=== PATIENT | female | born 1950 | race Caucasian/White ===

== ENCOUNTER → 2016-09-19 | Outpatient (REF) | payer MEDICARE ==
[~2016-09-19] MED LIST: AMLO5TAB2 PO; ASPI325T PO; COUM1TAB17 PO; DIOV160T6 PO
[2016-09-19 16:39] LABS: FOLATE 14.2 NG/ML; VITAMIN B12 LEVEL 961 PG/ML
[2016-09-19 16:50] LABS: ALBUMIN 4.4 GM/DL (3.2-5.2); ALBUMIN/GLOBULIN RATIO 1.16 (1.00-1.93); ALKALINE PHOSPHATASE 145 U/L (45-117); ALT/SGPT 49 U/L (12-78); ANION GAP 11 MEQ/L (8-16); AST/SGOT 51 U/L (15-37); BLOOD UREA NITROGEN 10 MG/DL (7-18); CALCIUM LEVEL 9.2 MG/DL (8.8-10.2); CARBON DIOXIDE LEVEL 26 MEQ/L (21-32); CHLORIDE LEVEL 102 MEQ/L (98-107); CHOLESTEROL LEVEL 181 MG/DL (<200); CREATININE FOR GFR 0.76 MG/DL (0.55-1.02); GLOMERULAR FILTRATION RATE > 60.0 (>45); GLUCOSE, FASTING 100 MG/DL (80-110); POTASSIUM SERUM 4.3 MEQ/L (3.5-5.1); SODIUM LEVEL 139 MEQ/L (136-145); TOTAL PROTEIN 8.2 GM/DL (6.4-8.2); TRIGLYCERIDES LEVEL 76 MG/DL (<150)
[2016-09-19 19:30] LABS: BASO # 0.1 K/mm3 (0.0-0.2); BASO % 0.7 % (0.0-1.0); EOS # 0.1 K/mm3 (0.0-0.50); EOS % 1.7 % (0.0-3.0); LARGE UNSTAINED CELL # 0.2 K/mm3 (0.0-0.4); LARGE UNSTAINED CELL % 2.3 % (0.0-4.0); LYMPH # 2.1 K/mm3 (1.5-4.5); LYMPH % 25.3 % (24.0-44.0); MEAN CORPUSCULAR HEMOGLOBIN 38.3 pg (27.0-33.0); MEAN CORPUSCULAR HGB CONC 32.6 g/dl (32.0-36.5); MEAN CORPUSCULAR VOLUME 117.4 fl (80.0-96.0); MONO # 0.4 K/mm3 (0.0-0.8); MONO % 5.1 % (0.0-5.0); NEUTROPHILS # 5.3 K/mm3 (1.8-7.7); NEUTROPHILS % 64.8 % (36.0-66.0); PLATELET COUNT, AUTOMATED 194 k/mm3 (150-450); RED CELL DISTRIBUTION WIDTH 12.3 % (11.5-14.5); WHITE BLOOD COUNT 8.1 K/mm3 (4.0-10.0)
[2016-09-19 19:40] LABS: ADD MORPHOLOGY? YES
== END ==
LOC: M SFHCCAPE 09:43
PROVIDERS: ATTEND Physician Assistant
DX: E78.5 Hyperlipidemia, unspecified (principal); G62.9 Polyneuropathy, unspecified; Z23 Encounter for immunization
CPT/HCPCS: 36415; 80053; 80061; 82607; 82746; 84443; 85025; 90662; G0008

== ENCOUNTER → 2016-10-30 | Outpatient (REF) | payer MEDICARE ==
[2016-10-30 16:19] LABS: ADD MORPHOLOGY? YES; BASO # 0.1 K/mm3 (0.0-0.2); BASO % 0.8 % (0.0-1.0); EOS # 0.1 K/mm3 (0.0-0.50); EOS % 1.7 % (0.0-3.0); LARGE UNSTAINED CELL # 0.2 K/mm3 (0.0-0.4); LARGE UNSTAINED CELL % 2.2 % (0.0-4.0); LYMPH # 2.6 K/mm3 (1.5-4.5); LYMPH % 30.4 % (24.0-44.0); MEAN CORPUSCULAR HEMOGLOBIN 38.5 pg (27.0-33.0); MEAN CORPUSCULAR HGB CONC 33.3 g/dl (32.0-36.5); MEAN CORPUSCULAR VOLUME 115.7 fl (80.0-96.0); MONO # 0.3 K/mm3 (0.0-0.8); MONO % 3.9 % (0.0-5.0); NEUTROPHILS # 4.9 K/mm3 (1.8-7.7); NEUTROPHILS % 61.1 % (36.0-66.0); PLATELET COUNT, AUTOMATED 219 k/mm3 (150-450); RED CELL DISTRIBUTION WIDTH 12.2 % (11.5-14.5)
[2016-10-30 17:07] LABS: ALBUMIN 4.2 GM/DL (3.2-5.2); ALKALINE PHOSPHATASE 139 U/L (45-117); ALT/SGPT 46 U/L (12-78); ANION GAP 10 MEQ/L (8-16); AST/SGOT 43 U/L (15-37); BILIRUBIN,TOTAL 0.9 MG/DL (0.2-1.0); BLOOD UREA NITROGEN 9 MG/DL (7-18); CARBON DIOXIDE LEVEL 27 MEQ/L (21-32); CHLORIDE LEVEL 103 MEQ/L (98-107); FERRITIN 489 NG/ML (8-252); GLOMERULAR FILTRATION RATE > 60.0 (>45); GLUCOSE, FASTING 99 MG/DL (80-110); PERCENT SATURATION 88.3 % (13.2-37.4); POTASSIUM SERUM 4.5 MEQ/L (3.5-5.1); SODIUM LEVEL 140 MEQ/L (136-145); TOTAL IRON BINDING CAPACITY 256 UG/DL (250-450); TOTAL PROTEIN 7.7 GM/DL (6.4-8.2)
== END ==
LOC: M SFHCCAPE 09:56
PROVIDERS: ATTEND Physician Assistant
DX: R79.89 Other specified abnormal findings of blood chemistry (principal); R94.5 Abnormal results of liver function studies

== ENCOUNTER → 2017-06-03 | Outpatient (REF) | payer MEDICARE ==
[2017-06-03 18:47] LABS: BASO # 0.1 10^3/uL (0.0-0.2); BASO % 0.9 % (0.0-1.0); EOS # 0.1 10^3/uL (0.0-0.50); EOS % 1.3 % (0.0-3.0); IMMATURE GRANULOCYTE % 0.3 % (0-0); LYMPH # 2.9 10^3/uL (1.5-4.5); LYMPH % 30.4 % (24.0-44.0); MEAN CORPUSCULAR HEMOGLOBIN 38.1 pg (27.0-33.0); MEAN CORPUSCULAR HGB CONC 33.7 g/dl (32.0-36.5); MONO # 0.7 10^3/uL (0.0-0.8); MONO % 6.8 % (0.0-5.0); NEUTROPHILS # 5.7 10^3/uL (1.8-7.7); NEUTROPHILS % 60.3 % (36.0-66.0); PLATELET COUNT, AUTOMATED 262 10^3/uL (150-450); RED CELL DISTRIBUTION WIDTH 13.9 % (11.5-14.5); WHITE BLOOD COUNT 9.5 10^3/uL (4.0-10.0)
[2017-06-03 18:48] LABS: ADD MORPHOLOGY? YES; POSITIVE MORPH POS FLAG
[2017-06-03 19:18] LABS: ALBUMIN 4.4 GM/DL (3.2-5.2); ALBUMIN/GLOBULIN RATIO 1.29 (1.00-1.93); ALKALINE PHOSPHATASE 140 U/L (45-117); ALT/SGPT 32 U/L (12-78); ANION GAP 8 MEQ/L (8-16); AST/SGOT 27 U/L (15-37); BILIRUBIN,TOTAL 0.7 MG/DL (0.2-1.0); BLOOD UREA NITROGEN 10 MG/DL (7-18); CALCIUM LEVEL 9.1 MG/DL (8.8-10.2); CARBON DIOXIDE LEVEL 29 MEQ/L (21-32); CHLORIDE LEVEL 102 MEQ/L (98-107); CHOLESTEROL LEVEL 177 MG/DL (<200); CREATININE FOR GFR 0.88 MG/DL (0.55-1.02); FERRITIN 365 NG/ML (8-252); GAMMA GLUTAMYLTRANSPEPTIDASE 74 U/L (5-55); GLOMERULAR FILTRATION RATE > 60.0 (>45); GLUCOSE, FASTING 101 MG/DL (80-110); PERCENT SATURATION 53.5 % (13.2-45.0); POTASSIUM SERUM 4.5 MEQ/L (3.5-5.1); SODIUM LEVEL 139 MEQ/L (136-145); TOTAL IRON BINDING CAPACITY 245 UG/DL (250-450); TOTAL PROTEIN 7.8 GM/DL (6.4-8.2); TRIGLYCERIDES LEVEL 85 MG/DL (<150)
[2017-06-03 20:38] LABS: ANISOCYTOSIS 2+
== END ==
LOC: M SFHCCAPE 09:38
PROVIDERS: ATTEND Physician Assistant
DX: Z00.00 Encounter for general adult medical examination without abnormal findings (principal); R79.89 Other specified abnormal findings of blood chemistry; R94.5 Abnormal results of liver function studies; E78.5 Hyperlipidemia, unspecified; Z11.59 Encounter for screening for other viral diseases; Z23 Encounter for immunization; I10 Essential (primary) hypertension; Z72.0 Tobacco use; Z85.3 Personal history of malignant neoplasm of breast

== ENCOUNTER 2017-09-02 16:31 | Inpatient (IN) | payer MEDICARE ==
[2017-09-02 17:35] LABS: BASO # 0.1 10^3/uL (0.0-0.2); BASO % 0.5 % (0.0-1.0); EOS # 0.1 10^3/uL (0.0-0.50); EOS % 0.4 % (0.0-3.0); HEMATOCRIT 42.1 % (36.0-47.0); HEMOGLOBIN 14.7 g/dl (12.0-16.0); IMMATURE GRANULOCYTE # 0.1 10^3/uL (0-0); IMMATURE GRANULOCYTE % 0.5 % (0-0); LYMPH # 1.9 10^3/uL (1.5-4.5); LYMPH % 15.2 % (24.0-44.0); MEAN CORPUSCULAR HEMOGLOBIN 38.3 pg (27.0-33.0); MEAN CORPUSCULAR HGB CONC 34.9 g/dl (32.0-36.5); MEAN CORPUSCULAR VOLUME 109.6 fl (80.0-96.0); MONO % 7.7 % (0.0-5.0); NEUTROPHILS # 9.6 10^3/uL (1.8-7.7); NEUTROPHILS % 75.7 % (36.0-66.0); PLATELET COUNT, AUTOMATED 236 10^3/uL (150-450); RED BLOOD COUNT 3.84 10^6/uL (4.00-5.40); RED CELL DISTRIBUTION WIDTH 12.7 % (11.5-14.5); WHITE BLOOD COUNT 12.7 10^3/uL (4.0-10.0)
[2017-09-02 17:42] LABS: INR 1.02; PROTHROMBIN TIME 13.5 SECONDS (12.4-14.5)
[2017-09-02 17:43] LABS: PARTIAL THROMBOPLASTIN TIME 26.7 SECONDS (26.8-37.9)
[2017-09-02 18:07] LABS: ANION GAP 9 MEQ/L (8-16); BLOOD UREA NITROGEN 18 MG/DL (7-18); CALCIUM LEVEL 9.4 MG/DL (8.8-10.2); CARBON DIOXIDE LEVEL 27 MEQ/L (21-32); CHLORIDE LEVEL 104 MEQ/L (98-107); CK-MB VALUE MASS 2.3 NG/ML (0.0-3.6); CPK CREATINE PHOSPHOKINASE 245 U/L (26-192); CREATININE FOR GFR 0.89 MG/DL (0.55-1.02); GLOMERULAR FILTRATION RATE > 60.0 (>45); GLUCOSE, FASTING 108 MG/DL (70-100); MB/CK RELATIVE INDEX 0.93 (< OR =4); POTASSIUM SERUM 4.4 MEQ/L (3.5-5.1); SODIUM LEVEL 140 MEQ/L (136-145); TROPONIN I < 0.02 NG/ML (< 0.10)
[2017-09-02] MEDS: LORazepam 2 MG/ML VIAL (J2060) IV (18:15)
[2017-09-02] MEDS ORDERED: ONDANSETRON 4MG/2ML VIAL (J2405) IV (20:30)
[2017-09-02] MEDS ORDERED: SENOKOT S TAB PO (21:00)
[2017-09-02] MEDS ORDERED: GLUCAGON FOR INJ 1 MG VIAL (J1610) SC (22:00)
[2017-09-02] MEDS ORDERED: GLUCOSE 4 GM CHEW TABLET PO (22:00)
[2017-09-02] MEDS ORDERED: DEXTROSE 50% 50 ML SYRINGE IV (22:00)
[2017-09-02] MEDS: D5W/0.45% SODIUM CHLORIDE 1,000 ML IV (22:33)
[2017-09-02] MEDS: PANTOPRAZOLE 40MG INJ (PROTONIX) (C9113) IV (22:33)
[2017-09-02] MEDS: ATORVASTATIN 20 MG TAB PO (23:22)
[2017-09-02] MEDS: CLOPIDOGREL 75 MG TAB PO (23:22)
[2017-09-02] MEDS: hydrALAZINE INJ 20 MG/ML VIAL IV (23:23)
[2017-09-03] MEDS: hydrALAZINE INJ 20 MG/ML VIAL IV ×3 (07:01→17:49)
[2017-09-03 07:06] LABS: BASO # 0.1 10^3/uL (0.0-0.2); BASO % 0.7 % (0.0-1.0); EOS # 0.1 10^3/uL (0.0-0.50); EOS % 0.8 % (0.0-3.0); HEMATOCRIT 39.1 % (36.0-47.0); HEMOGLOBIN 13.5 g/dl (12.0-16.0); IMMATURE GRANULOCYTE # 0.1 10^3/uL (0-0); IMMATURE GRANULOCYTE % 0.5 % (0-0); LYMPH # 1.4 10^3/uL (1.5-4.5); LYMPH % 14.1 % (24.0-44.0); MEAN CORPUSCULAR HEMOGLOBIN 38.2 pg (27.0-33.0); MEAN CORPUSCULAR HGB CONC 34.5 g/dl (32.0-36.5); MEAN CORPUSCULAR VOLUME 110.8 fl (80.0-96.0); MONO # 0.8 10^3/uL (0.0-0.8); MONO % 8.3 % (0.0-5.0); NEUTROPHILS # 7.3 10^3/uL (1.8-7.7); NEUTROPHILS % 75.6 % (36.0-66.0); PLATELET COUNT, AUTOMATED 206 10^3/uL (150-450); RED BLOOD COUNT 3.53 10^6/uL (4.00-5.40); RED CELL DISTRIBUTION WIDTH 12.8 % (11.5-14.5); WHITE BLOOD COUNT 9.7 10^3/uL (4.0-10.0)
[2017-09-03 07:16] LABS: ANION GAP 7 MEQ/L (8-16); BLOOD UREA NITROGEN 13 MG/DL (7-18); CALCIUM LEVEL 8.8 MG/DL (8.8-10.2); CARBON DIOXIDE LEVEL 27 MEQ/L (21-32); CHLORIDE LEVEL 105 MEQ/L (98-107); CREATININE FOR GFR 0.76 MG/DL (0.55-1.02); GLOMERULAR FILTRATION RATE > 60.0 (>45); GLUCOSE, FASTING 124 MG/DL (70-100); POTASSIUM SERUM 3.8 MEQ/L (3.5-5.1); SODIUM LEVEL 139 MEQ/L (136-145)
[2017-09-03 07:25] LABS: CHOLESTEROL LEVEL 153 MG/DL (<200); CHOLESTEROL RISK RATIO 4.135 (<5); HDL CHOLESTEROL 37 MG/DL (>40); LDL CHOLESTEROL 88.8 MG/DL (<100); NON-HDL-C 116 MG/DL; TRIGLYCERIDES LEVEL 136 MG/DL (<150)
[2017-09-03] MEDS: VALSARTAN 80 MG TAB (DIOVAN) PO ×3 (08:37→22:00)
[2017-09-03] MEDS: CLOPIDOGREL 75 MG TAB PO (08:41)
[2017-09-03] MEDS: ACETAMINOPHEN TAB 650MG DOSE (2X325MG) PO ×2 (08:41→16:25)
[2017-09-03] MEDS: ASPIRIN 81 MG ENTERIC TAB PO (08:41)
[2017-09-03] MEDS: ENOXAPARIN 40 MG/0.4 ML SYRINGE (J1650) SC (08:42)
[2017-09-03] MEDS ORDERED: PROHANCE 279.3MG/ML 5ML VIAL (A9576) As Ordered (11:18)
[2017-09-03] MEDS ORDERED: PROHANCE 279.3MG/ML 15ML VIAL (A9576) As Ordered (11:18)
[2017-09-03] MEDS: LORazepam 2 MG/ML VIAL (J2060) IV (11:32)
[2017-09-03] MEDS: D5W/0.45% SODIUM CHLORIDE 1,000 ML IV (16:26)
[2017-09-03] MEDS: POLYVINYL ALCOHOL OPHTH SOLN 15 ML(LIQUITEARS) OU ×2 (17:00→22:00)
[2017-09-03 20:32] LABS: BEDSIDE GLUCOSE 112 MG/DL (80-115)
[2017-09-03] MEDS: ATORVASTATIN 20 MG TAB PO (22:00)
[2017-09-03] MEDS: PANTOPRAZOLE 40MG INJ (PROTONIX) (C9113) IV (22:00)
[2017-09-03] MEDS: NYSTATIN 100,000 UNITS/GM TOPICAL PWD 15 GM TOP (22:00)
[2017-09-04] MEDS: hydrALAZINE INJ 20 MG/ML VIAL IV ×5 (05:25→23:55)
[2017-09-04 06:49] LABS: BASO # 0.1 10^3/uL (0.0-0.2); BASO % 0.8 % (0.0-1.0); EOS # 0.2 10^3/uL (0.0-0.50); EOS % 1.8 % (0.0-3.0); HEMATOCRIT 38.4 % (36.0-47.0); HEMOGLOBIN 13.1 g/dl (12.0-16.0); IMMATURE GRANULOCYTE % 0.3 % (0-0); LYMPH # 1.7 10^3/uL (1.5-4.5); LYMPH % 16.8 % (24.0-44.0); MEAN CORPUSCULAR HEMOGLOBIN 37.6 pg (27.0-33.0); MEAN CORPUSCULAR HGB CONC 34.1 g/dl (32.0-36.5); MEAN CORPUSCULAR VOLUME 110.3 fl (80.0-96.0); MONO # 0.9 10^3/uL (0.0-0.8); MONO % 9.4 % (0.0-5.0); NEUTROPHILS % 70.9 % (36.0-66.0); PLATELET COUNT, AUTOMATED 207 10^3/uL (150-450); RED BLOOD COUNT 3.48 10^6/uL (4.00-5.40); RED CELL DISTRIBUTION WIDTH 12.7 % (11.5-14.5); WHITE BLOOD COUNT 9.8 10^3/uL (4.0-10.0)
[2017-09-04 07:04] LABS: ANION GAP 5 MEQ/L (8-16); BLOOD UREA NITROGEN 10 MG/DL (7-18); CALCIUM LEVEL 8.7 MG/DL (8.8-10.2); CARBON DIOXIDE LEVEL 26 MEQ/L (21-32); CHLORIDE LEVEL 107 MEQ/L (98-107); CREATININE FOR GFR 0.78 MG/DL (0.55-1.02); GLOMERULAR FILTRATION RATE > 60.0 (>45); GLUCOSE, FASTING 114 MG/DL (70-100); SODIUM LEVEL 138 MEQ/L (136-145)
[2017-09-04] MEDS ORDERED: ISOVUE-370 76% 100ML VIAL (Q9967) As Ordered (07:51)
[2017-09-04] MEDS: VALSARTAN 80 MG TAB (DIOVAN) PO ×3 (09:00→20:37)
[2017-09-04] MEDS: D5W/0.45% SODIUM CHLORIDE 1,000 ML IV (09:15)
[2017-09-04] MEDS: ASPIRIN 81 MG ENTERIC TAB PO (09:16)
[2017-09-04] MEDS: CLOPIDOGREL 75 MG TAB PO (09:16)
[2017-09-04] MEDS: ENOXAPARIN 40 MG/0.4 ML SYRINGE (J1650) SC (09:16)
[2017-09-04] MEDS: POLYVINYL ALCOHOL OPHTH SOLN 15 ML(LIQUITEARS) OU ×4 (09:17→20:36)
[2017-09-04] MEDS: NYSTATIN 100,000 UNITS/GM TOPICAL PWD 15 GM TOP ×2 (09:17→20:36)
[2017-09-04] MEDS: ACETAMINOPHEN TAB 650MG DOSE (2X325MG) PO (13:14)
[2017-09-04 18:41] LABS: BEDSIDE GLUCOSE 113 MG/DL (80-115)
[2017-09-04] MEDS: PANTOPRAZOLE 40MG INJ (PROTONIX) (C9113) IV (20:36)
[2017-09-05] MEDS: ACETAMINOPHEN TAB 650MG DOSE (2X325MG) PO ×2 (00:43→09:25)
[2017-09-05] MEDS: hydrALAZINE INJ 20 MG/ML VIAL IV ×4 (05:55→20:29)
[2017-09-05 06:10] LABS: BASO # 0.1 10^3/uL (0.0-0.2); BASO % 0.5 % (0.0-1.0); EOS # 0.1 10^3/uL (0.0-0.50); EOS % 1.3 % (0.0-3.0); HEMATOCRIT 37.5 % (36.0-47.0); HEMOGLOBIN 12.9 g/dl (12.0-16.0); IMMATURE GRANULOCYTE % 0.4 % (0-0); LYMPH # 1.6 10^3/uL (1.5-4.5); LYMPH % 16.4 % (24.0-44.0); MEAN CORPUSCULAR HEMOGLOBIN 38.6 pg (27.0-33.0); MEAN CORPUSCULAR HGB CONC 34.4 g/dl (32.0-36.5); MEAN CORPUSCULAR VOLUME 112.3 fl (80.0-96.0); MONO # 0.9 10^3/uL (0.0-0.8); MONO % 9.2 % (0.0-5.0); NEUTROPHILS % 72.2 % (36.0-66.0); PLATELET COUNT, AUTOMATED 193 10^3/uL (150-450); RED BLOOD COUNT 3.34 10^6/uL (4.00-5.40); RED CELL DISTRIBUTION WIDTH 12.6 % (11.5-14.5); WHITE BLOOD COUNT 9.7 10^3/uL (4.0-10.0)
[2017-09-05 06:23] LABS: ANION GAP 5 MEQ/L (8-16); BLOOD UREA NITROGEN 11 MG/DL (7-18); CALCIUM LEVEL 8.5 MG/DL (8.8-10.2); CARBON DIOXIDE LEVEL 26 MEQ/L (21-32); CHLORIDE LEVEL 108 MEQ/L (98-107); CREATININE FOR GFR 0.81 MG/DL (0.55-1.02); GLOMERULAR FILTRATION RATE > 60.0 (>45); GLUCOSE, FASTING 117 MG/DL (70-100); SODIUM LEVEL 139 MEQ/L (136-145)
[2017-09-05] MEDS: VALSARTAN 80 MG TAB (DIOVAN) PO ×4 (09:00→21:00)
[2017-09-05] MEDS: ENOXAPARIN 40 MG/0.4 ML SYRINGE (J1650) SC (09:25)
[2017-09-05] MEDS: CLOPIDOGREL 75 MG TAB PO (09:25)
[2017-09-05] MEDS: ASPIRIN 81 MG ENTERIC TAB PO (09:25)
[2017-09-05] MEDS: ATORVASTATIN 10 MG TAB PO (09:25)
[2017-09-05] MEDS: POLYVINYL ALCOHOL OPHTH SOLN 15 ML(LIQUITEARS) OU ×4 (09:26→20:31)
[2017-09-05] MEDS: NYSTATIN 100,000 UNITS/GM TOPICAL PWD 15 GM TOP ×2 (09:26→20:30)
[2017-09-05 10:40] LABS: CPK CREATINE PHOSPHOKINASE 75 U/L (26-192); TROPONIN I < 0.02 NG/ML (< 0.10)
[2017-09-05 10:41] LABS: MB/CK RELATIVE INDEX 1.33 (< OR =4)
[2017-09-05] MEDS: D5W/0.45% SODIUM CHLORIDE 1,000 ML IV ×2 (16:15)
[2017-09-05 17:29] LABS: BEDSIDE GLUCOSE 107 MG/DL (80-115)
[2017-09-05] MEDS: PANTOPRAZOLE 40MG INJ (PROTONIX) (C9113) IV (20:29)
[2017-09-06 04:25] LABS: BASO # 0.1 10^3/uL (0.0-0.2); BASO % 0.8 % (0.0-1.0); EOS # 0.2 10^3/uL (0.0-0.50); EOS % 1.9 % (0.0-3.0); HEMATOCRIT 37.3 % (36.0-47.0); HEMOGLOBIN 12.8 g/dl (12.0-16.0); IMMATURE GRANULOCYTE % 0.2 % (0-0); LYMPH # 1.6 10^3/uL (1.5-4.5); MEAN CORPUSCULAR HEMOGLOBIN 38.1 pg (27.0-33.0); MEAN CORPUSCULAR HGB CONC 34.3 g/dl (32.0-36.5); MONO # 0.9 10^3/uL (0.0-0.8); NEUTROPHILS # 6.5 10^3/uL (1.8-7.7); NEUTROPHILS % 70.1 % (36.0-66.0); PLATELET COUNT, AUTOMATED 204 10^3/uL (150-450); RED BLOOD COUNT 3.36 10^6/uL (4.00-5.40); RED CELL DISTRIBUTION WIDTH 12.2 % (11.5-14.5); WHITE BLOOD COUNT 9.3 10^3/uL (4.0-10.0)
[2017-09-06 04:43] LABS: ANION GAP 5 MEQ/L (8-16); BLOOD UREA NITROGEN 10 MG/DL (7-18); CALCIUM LEVEL 8.5 MG/DL (8.8-10.2); CARBON DIOXIDE LEVEL 27 MEQ/L (21-32); CHLORIDE LEVEL 108 MEQ/L (98-107); CREATININE FOR GFR 0.68 MG/DL (0.55-1.02); GLOMERULAR FILTRATION RATE > 60.0 (>45); GLUCOSE, FASTING 109 MG/DL (70-100); POTASSIUM SERUM 3.9 MEQ/L (3.5-5.1); SODIUM LEVEL 140 MEQ/L (136-145)
[2017-09-06] MEDS: hydrALAZINE INJ 20 MG/ML VIAL IV (05:00)
[2017-09-06] MEDS: D5W/0.45% SODIUM CHLORIDE 1,000 ML IV (08:34)
[2017-09-06] MEDS: CLOPIDOGREL 75 MG TAB PO (08:34)
[2017-09-06] MEDS: ATORVASTATIN 10 MG TAB PO (08:34)
[2017-09-06] MEDS: ACETAMINOPHEN TAB 650MG DOSE (2X325MG) PO ×2 (08:34→17:22)
[2017-09-06] MEDS: ASPIRIN 81 MG ENTERIC TAB PO (08:34)
[2017-09-06] MEDS: VALSARTAN 80 MG TAB (DIOVAN) PO ×3 (08:34→21:01)
[2017-09-06] MEDS: NYSTATIN 100,000 UNITS/GM TOPICAL PWD 15 GM TOP ×2 (08:35→21:01)
[2017-09-06] MEDS: ENOXAPARIN 40 MG/0.4 ML SYRINGE (J1650) SC (08:35)
[2017-09-06] MEDS: BISACODYL 10 MG SUPP PR (08:35)
[2017-09-06] MEDS: POLYVINYL ALCOHOL OPHTH SOLN 15 ML(LIQUITEARS) OU ×4 (08:35→21:02)
[2017-09-06] MEDS: SENNA 8.6 MG TAB (SENOKOT) PO ×2 (10:21→20:53)
[2017-09-06] MEDS ORDERED: SLF 3 ML SYR IV (11:15)
[2017-09-06] MEDS: SLF 3 ML SYR IV ×2 (13:49→21:01)
[2017-09-07 05:40] LABS: BASO # 0.1 10^3/uL (0.0-0.2); BASO % 0.8 % (0.0-1.0); EOS # 0.3 10^3/uL (0.0-0.50); EOS % 2.9 % (0.0-3.0); HEMOGLOBIN 12.8 g/dl (12.0-16.0); IMMATURE GRANULOCYTE % 0.2 % (0-0); LYMPH # 1.4 10^3/uL (1.5-4.5); LYMPH % 16.5 % (24.0-44.0); MEAN CORPUSCULAR HEMOGLOBIN 37.9 pg (27.0-33.0); MEAN CORPUSCULAR HGB CONC 34.6 g/dl (32.0-36.5); MEAN CORPUSCULAR VOLUME 109.5 fl (80.0-96.0); MONO # 0.9 10^3/uL (0.0-0.8); MONO % 10.6 % (0.0-5.0); NEUTROPHILS # 5.9 10^3/uL (1.8-7.7); PLATELET COUNT, AUTOMATED 207 10^3/uL (150-450); RED BLOOD COUNT 3.38 10^6/uL (4.00-5.40); RED CELL DISTRIBUTION WIDTH 11.9 % (11.5-14.5); WHITE BLOOD COUNT 8.6 10^3/uL (4.0-10.0)
[2017-09-07] MEDS: SLF 3 ML SYR IV ×3 (06:00→22:03)
[2017-09-07 06:05] LABS: ANION GAP 8 MEQ/L (8-16); BLOOD UREA NITROGEN 11 MG/DL (7-18); CALCIUM LEVEL 8.9 MG/DL (8.8-10.2); CARBON DIOXIDE LEVEL 25 MEQ/L (21-32); CHLORIDE LEVEL 109 MEQ/L (98-107); CREATININE FOR GFR 0.66 MG/DL (0.55-1.02); GLOMERULAR FILTRATION RATE > 60.0 (>45); GLUCOSE, FASTING 96 MG/DL (70-100); SODIUM LEVEL 142 MEQ/L (136-145)
[2017-09-07] MEDS: VALSARTAN 80 MG TAB (DIOVAN) PO (08:05)
[2017-09-07] MEDS: CLOPIDOGREL 75 MG TAB PO (08:05)
[2017-09-07] MEDS: ATORVASTATIN 10 MG TAB PO (08:06)
[2017-09-07] MEDS: ASPIRIN 81 MG ENTERIC TAB PO (08:06)
[2017-09-07] MEDS: SENNA 8.6 MG TAB (SENOKOT) PO ×2 (08:06→22:02)
[2017-09-07] MEDS: ENOXAPARIN 40 MG/0.4 ML SYRINGE (J1650) SC (08:06)
[2017-09-07] MEDS: ACETAMINOPHEN TAB 650MG DOSE (2X325MG) PO ×2 (08:06→22:50)
[2017-09-07] MEDS: POLYVINYL ALCOHOL OPHTH SOLN 15 ML(LIQUITEARS) OU ×4 (08:07→22:02)
[2017-09-07] MEDS: NYSTATIN 100,000 UNITS/GM TOPICAL PWD 15 GM TOP ×2 (08:07→22:03)
[2017-09-08] MEDS: SLF 3 ML SYR IV ×3 (05:38→22:00)
[2017-09-08 06:06] LABS: BASO # 0.1 10^3/uL (0.0-0.2); BASO % 1.2 % (0.0-1.0); EOS # 0.2 10^3/uL (0.0-0.50); EOS % 2.7 % (0.0-3.0); HEMATOCRIT 38.7 % (36.0-47.0); HEMOGLOBIN 13.2 g/dl (12.0-16.0); IMMATURE GRANULOCYTE % 0.3 % (0-0); LYMPH # 1.3 10^3/uL (1.5-4.5); LYMPH % 17.8 % (24.0-44.0); MEAN CORPUSCULAR HEMOGLOBIN 37.8 pg (27.0-33.0); MEAN CORPUSCULAR HGB CONC 34.1 g/dl (32.0-36.5); MEAN CORPUSCULAR VOLUME 110.9 fl (80.0-96.0); MONO # 0.9 10^3/uL (0.0-0.8); MONO % 11.9 % (0.0-5.0); NEUTROPHILS % 66.1 % (36.0-66.0); PLATELET COUNT, AUTOMATED 234 10^3/uL (150-450); RED BLOOD COUNT 3.49 10^6/uL (4.00-5.40); RED CELL DISTRIBUTION WIDTH 12.1 % (11.5-14.5); WHITE BLOOD COUNT 7.5 10^3/uL (4.0-10.0)
[2017-09-08 06:28] LABS: ANION GAP 8 MEQ/L (8-16); BLOOD UREA NITROGEN 19 MG/DL (7-18); CALCIUM LEVEL 9.1 MG/DL (8.8-10.2); CARBON DIOXIDE LEVEL 26 MEQ/L (21-32); CHLORIDE LEVEL 109 MEQ/L (98-107); CREATININE FOR GFR 0.73 MG/DL (0.55-1.02); GLOMERULAR FILTRATION RATE > 60.0 (>45); GLUCOSE, FASTING 96 MG/DL (70-100); SODIUM LEVEL 143 MEQ/L (136-145)
[2017-09-08] MEDS: CLOPIDOGREL 75 MG TAB PO (08:48)
[2017-09-08] MEDS: ATORVASTATIN 10 MG TAB PO (08:49)
[2017-09-08] MEDS: ASPIRIN 81 MG ENTERIC TAB PO (08:49)
[2017-09-08] MEDS: SENNA 8.6 MG TAB (SENOKOT) PO ×2 (08:49→20:24)
[2017-09-08] MEDS: VALSARTAN 80 MG TAB (DIOVAN) PO (08:49)
[2017-09-08] MEDS: NYSTATIN 100,000 UNITS/GM TOPICAL PWD 15 GM TOP ×2 (08:50→20:24)
[2017-09-08] MEDS: POLYVINYL ALCOHOL OPHTH SOLN 15 ML(LIQUITEARS) OU ×4 (08:50→20:24)
[2017-09-08] MEDS: ENOXAPARIN 40 MG/0.4 ML SYRINGE (J1650) SC (10:55)
[2017-09-08] MEDS: ACETAMINOPHEN TAB 650MG DOSE (2X325MG) PO (19:59)
[2017-09-09] MEDS ORDERED: ONDANSETRON 4 MG ORAL DISINTEGRATING TAB (S0181) PO (05:45)
[2017-09-09] MEDS: SLF 3 ML SYR IV (06:00)
[2017-09-09 06:17] LABS: BASO # 0.1 10^3/uL (0.0-0.2); BASO % 1.3 % (0.0-1.0); EOS # 0.2 10^3/uL (0.0-0.50); EOS % 2.3 % (0.0-3.0); HEMATOCRIT 38.6 % (36.0-47.0); HEMOGLOBIN 13.2 g/dl (12.0-16.0); IMMATURE GRANULOCYTE % 0.3 % (0-0); LYMPH # 1.6 10^3/uL (1.5-4.5); MEAN CORPUSCULAR HEMOGLOBIN 37.4 pg (27.0-33.0); MEAN CORPUSCULAR HGB CONC 34.2 g/dl (32.0-36.5); MEAN CORPUSCULAR VOLUME 109.3 fl (80.0-96.0); MONO # 0.8 10^3/uL (0.0-0.8); MONO % 10.7 % (0.0-5.0); NEUTROPHILS # 4.7 10^3/uL (1.8-7.7); NEUTROPHILS % 63.4 % (36.0-66.0); PLATELET COUNT, AUTOMATED 268 10^3/uL (150-450); RED BLOOD COUNT 3.53 10^6/uL (4.00-5.40); RED CELL DISTRIBUTION WIDTH 11.9 % (11.5-14.5); WHITE BLOOD COUNT 7.4 10^3/uL (4.0-10.0)
[2017-09-09 06:25] LABS: ANION GAP 8 MEQ/L (8-16); BLOOD UREA NITROGEN 21 MG/DL (7-18); CALCIUM LEVEL 9.2 MG/DL (8.8-10.2); CARBON DIOXIDE LEVEL 26 MEQ/L (21-32); CHLORIDE LEVEL 109 MEQ/L (98-107); CREATININE FOR GFR 0.71 MG/DL (0.55-1.30); GLOMERULAR FILTRATION RATE > 60.0 (>45); GLUCOSE, FASTING 97 MG/DL (70-100); POTASSIUM SERUM 3.7 MEQ/L (3.5-5.1); SODIUM LEVEL 143 MEQ/L (136-145)
[2017-09-09] MEDS ORDERED: CHLORTHALIDONE 12.5MG PER 1/2 TABLET PO (09:00)
[2017-09-09] MEDS: CLOPIDOGREL 75 MG TAB PO (09:15)
[2017-09-09] MEDS: ATORVASTATIN 10 MG TAB PO (09:15)
[2017-09-09] MEDS: VALSARTAN 80 MG TAB (DIOVAN) PO (09:15)
[2017-09-09] MEDS: SENNA 8.6 MG TAB (SENOKOT) PO (09:15)
[2017-09-09] MEDS: POLYVINYL ALCOHOL OPHTH SOLN 15 ML(LIQUITEARS) OU ×2 (09:16→12:20)
[2017-09-09] MEDS: ASPIRIN 81 MG ENTERIC TAB PO (09:16)
[2017-09-09] MEDS: NYSTATIN 100,000 UNITS/GM TOPICAL PWD 15 GM TOP (09:16)
[2017-09-09] MEDS: ENOXAPARIN 40 MG/0.4 ML SYRINGE (J1650) SC (09:16)
== END 2017-09-09 14:17 | DRG 64 ==
LOC: M MSPAV 09-06 11:19 → M PCU 09-03 16:50 → M ED 16:31 → M ED INP 20:30
DX: I63.311 Cerebral infarction due to thrombosis of right middle cerebral artery (principal); I63.231 Cerebral infarction due to unspecified occlusion or stenosis of right carotid arteries; I69.354 Hemiplegia and hemiparesis following cerebral infarction affecting left non-dominant side; I10 Essential (primary) hypertension; F17.210 Nicotine dependence, cigarettes, uncomplicated; E78.5 Hyperlipidemia, unspecified; B37.2 Candidiasis of skin and nail; Z85.3 Personal history of malignant neoplasm of breast; Z90.13 Acquired absence of bilateral breasts and nipples; Z96.642 Presence of left artificial hip joint; Z91.040 Latex allergy status; Z91.048 Other nonmedicinal substance allergy status; Z79.82 Long term (current) use of aspirin; Z79.899 Other long term (current) drug therapy; Z92.21 Personal history of antineoplastic chemotherapy

== ENCOUNTER 2017-09-09 14:25 | Inpatient (IN) | payer MEDICARE ==
[~2017-09-09 14:25] MED LIST changes: -AMLO5TAB2 PO; -ASPI325T PO; +BISACODYL 10 MG SUPP PR; -COUM1TAB17 PO; -DIOV160T6 PO; +GLUCAGON FOR INJ 1 MG VIAL (J1610) SC; +GLUCOSE 4 GM CHEW TABLET PO
[2017-09-09] MEDS: ACETAMINOPHEN TAB 650MG DOSE (2X325MG) PO (15:21)
[2017-09-09] MEDS: NYSTATIN 500,000 U/5 ML SUSP UDC SSP ×2 (17:42→20:37)
[2017-09-09] MEDS: VALSARTAN 80 MG TAB (DIOVAN) PO ×2 (17:43→20:38)
[2017-09-09] MEDS: SENNA 8.6 MG TAB (SENOKOT) PO (20:38)
[2017-09-09] MEDS: ATORVASTATIN 10 MG TAB PO (20:38)
[2017-09-09] MEDS: LACRILUBE (AKWA TEARS) OPHTH OINT 3.5 GM OS (21:34)
[2017-09-09] MEDS: NYSTATIN 100,000 UNITS/GM TOPICAL PWD 15 GM TOP (21:35)
[2017-09-10 06:58] LABS: BASO # 0.1 10^3/uL (0.0-0.2); BASO % 1.1 % (0.0-1.0); EOS # 0.2 10^3/uL (0.0-0.50); EOS % 2.5 % (0.0-3.0); HEMATOCRIT 38.6 % (36.0-47.0); HEMOGLOBIN 13.2 g/dl (12.0-16.0); IMMATURE GRANULOCYTE % 0.2 % (0-0); LYMPH % 24.7 % (24.0-44.0); MEAN CORPUSCULAR HEMOGLOBIN 37.4 pg (27.0-33.0); MEAN CORPUSCULAR HGB CONC 34.2 g/dl (32.0-36.5); MEAN CORPUSCULAR VOLUME 109.3 fl (80.0-96.0); MONO # 0.8 10^3/uL (0.0-0.8); NEUTROPHILS # 5.1 10^3/uL (1.8-7.7); NEUTROPHILS % 61.5 % (36.0-66.0); PLATELET COUNT, AUTOMATED 280 10^3/uL (150-450); RED BLOOD COUNT 3.53 10^6/uL (4.00-5.40); RED CELL DISTRIBUTION WIDTH 11.8 % (11.5-14.5); WHITE BLOOD COUNT 8.3 10^3/uL (4.0-10.0)
[2017-09-10 07:18] LABS: ALBUMIN 3.3 GM/DL (3.2-5.2); ALBUMIN/GLOBULIN RATIO 0.77 (1.00-1.93); ALKALINE PHOSPHATASE 118 U/L (45-117); ALT/SGPT 28 U/L (12-78); ANION GAP 7 MEQ/L (8-16); AST/SGOT 27 U/L (7-37); BILIRUBIN,TOTAL 0.5 MG/DL (0.2-1.0); BLOOD UREA NITROGEN 22 MG/DL (7-18); CALCIUM LEVEL 9.3 MG/DL (8.8-10.2); CARBON DIOXIDE LEVEL 28 MEQ/L (21-32); CHLORIDE LEVEL 108 MEQ/L (98-107); CREATININE FOR GFR 0.75 MG/DL (0.55-1.30); GLOMERULAR FILTRATION RATE > 60.0 (>45); GLUCOSE, FASTING 100 MG/DL (70-100); POTASSIUM SERUM 3.9 MEQ/L (3.5-5.1); SODIUM LEVEL 143 MEQ/L (136-145); TOTAL PROTEIN 7.6 GM/DL (6.4-8.2)
[2017-09-10] MEDS: ACETAMINOPHEN TAB 650MG DOSE (2X325MG) PO ×2 (09:17→17:10)
[2017-09-10] MEDS: NYSTATIN 100,000 UNITS/GM TOPICAL PWD 15 GM TOP ×2 (09:18→20:53)
[2017-09-10] MEDS: NYSTATIN 500,000 U/5 ML SUSP UDC SSP ×4 (09:18→20:48)
[2017-09-10] MEDS: ENOXAPARIN 40 MG/0.4 ML SYRINGE (J1650) SC (09:19)
[2017-09-10] MEDS: CLOPIDOGREL 75 MG TAB PO (09:19)
[2017-09-10] MEDS: SENNA 8.6 MG TAB (SENOKOT) PO ×2 (09:19→20:51)
[2017-09-10] MEDS: ASPIRIN 81 MG ENTERIC TAB PO (09:20)
[2017-09-10] MEDS: VALSARTAN 80 MG TAB (DIOVAN) PO ×3 (09:20→20:50)
[2017-09-10] MEDS: ATORVASTATIN 10 MG TAB PO (20:50)
[2017-09-10] MEDS: LACRILUBE (AKWA TEARS) OPHTH OINT 3.5 GM OS (20:53)
[2017-09-11] MEDS: VALSARTAN 80 MG TAB (DIOVAN) PO ×3 (09:43→21:30)
[2017-09-11] MEDS: ASPIRIN 81 MG ENTERIC TAB PO (09:43)
[2017-09-11] MEDS: ENOXAPARIN 40 MG/0.4 ML SYRINGE (J1650) SC (09:43)
[2017-09-11] MEDS: CLOPIDOGREL 75 MG TAB PO (09:44)
[2017-09-11] MEDS: SENNA 8.6 MG TAB (SENOKOT) PO ×2 (09:44→21:00)
[2017-09-11] MEDS: NYSTATIN 500,000 U/5 ML SUSP UDC SSP ×4 (09:44→21:31)
[2017-09-11] MEDS: NYSTATIN 100,000 UNITS/GM TOPICAL PWD 15 GM TOP ×2 (09:45→21:30)
[2017-09-11] MEDS: ACETAMINOPHEN TAB 650MG DOSE (2X325MG) PO (09:50)
[2017-09-11 12:09] LABS: KETONE, URINE AUTO RFX NEGATIVE (NEGATIVE); LEUKOCYTE ESTERASE UR AUTO RFX NEGATIVE (NEGATIVE); MUCUS, URINE RFX SMALL (NEGATIVE); NITRITE, URINE AUTO RFX NEGATIVE (NEGATIVE); RBC, URINE AUTO RFX 0 /HPF (0-3); SPECIFIC GRAVITY UR AUTO RFX 1.027 (1.002-1.035); SQUAM EPITHELIAL CELL UR AURFX 0 /HPF (0-6); WBC, URINE AUTO RFX 2 /HPF (0-3)
[2017-09-11] MEDS: ANALGESIC BALM CRM 120 GM TOP ×3 (12:17→21:32)
[2017-09-11] MEDS: LACRILUBE (AKWA TEARS) OPHTH OINT 3.5 GM OS (21:31)
[2017-09-11] MEDS: ATORVASTATIN 10 MG TAB PO (21:31)
[2017-09-12 07:13] LABS: HEMATOCRIT 39.5 % (36.0-47.0); HEMOGLOBIN 13.5 g/dl (12.0-16.0); MEAN CORPUSCULAR HEMOGLOBIN 37.8 pg (27.0-33.0); MEAN CORPUSCULAR HGB CONC 34.2 g/dl (32.0-36.5); MEAN CORPUSCULAR VOLUME 110.6 fl (80.0-96.0); PLATELET COUNT, AUTOMATED 315 10^3/uL (150-450); RED BLOOD COUNT 3.57 10^6/uL (4.00-5.40); RED CELL DISTRIBUTION WIDTH 11.8 % (11.5-14.5); WHITE BLOOD COUNT 8.7 10^3/uL (4.0-10.0)
[2017-09-12] MEDS: VALSARTAN 80 MG TAB (DIOVAN) PO ×3 (09:32→21:49)
[2017-09-12] MEDS: CLOPIDOGREL 75 MG TAB PO (09:32)
[2017-09-12] MEDS: ASPIRIN 81 MG ENTERIC TAB PO (09:32)
[2017-09-12] MEDS: NYSTATIN 500,000 U/5 ML SUSP UDC SSP ×4 (09:32→21:49)
[2017-09-12] MEDS: ENOXAPARIN 40 MG/0.4 ML SYRINGE (J1650) SC (09:32)
[2017-09-12] MEDS: SENNA 8.6 MG TAB (SENOKOT) PO ×2 (09:32→21:00)
[2017-09-12] MEDS: ANALGESIC BALM CRM 120 GM TOP ×3 (09:33→21:49)
[2017-09-12] MEDS: NYSTATIN 100,000 UNITS/GM TOPICAL PWD 15 GM TOP ×2 (09:33→21:49)
[2017-09-12] MEDS ORDERED: VARIBAR PUDDING 40% w/v 230ML TUBE As Ordered (10:21)
[2017-09-12] MEDS ORDERED: VARIBAR NECTAR 40% w/v 240ML SUSP BTL As Ordered (10:21)
[2017-09-12] MEDS ORDERED: E-Z-PAQUE 96% w/w SUSP 176GM BTL As Ordered (10:22)
[2017-09-12] MEDS: ATORVASTATIN 10 MG TAB PO (21:48)
[2017-09-12] MEDS: LACRILUBE (AKWA TEARS) OPHTH OINT 3.5 GM OS (21:49)
[2017-09-13] MEDS: SENNA 8.6 MG TAB (SENOKOT) PO ×2 (09:21→20:47)
[2017-09-13] MEDS: CLOPIDOGREL 75 MG TAB PO (09:21)
[2017-09-13] MEDS: VALSARTAN 80 MG TAB (DIOVAN) PO ×3 (09:21→20:46)
[2017-09-13] MEDS: ASPIRIN 81 MG ENTERIC TAB PO (09:21)
[2017-09-13] MEDS: NYSTATIN 500,000 U/5 ML SUSP UDC SSP ×4 (09:22→20:46)
[2017-09-13] MEDS: ANALGESIC BALM CRM 120 GM TOP ×3 (09:22→20:46)
[2017-09-13] MEDS: ENOXAPARIN 40 MG/0.4 ML SYRINGE (J1650) SC (09:22)
[2017-09-13] MEDS: NYSTATIN 100,000 UNITS/GM TOPICAL PWD 15 GM TOP ×2 (09:23→20:47)
[2017-09-13] MEDS: ACETAMINOPHEN TAB 650MG DOSE (2X325MG) PO (09:24)
[2017-09-13] MEDS: ATORVASTATIN 10 MG TAB PO (20:46)
[2017-09-13] MEDS: LACRILUBE (AKWA TEARS) OPHTH OINT 3.5 GM OS (20:47)
[2017-09-14 07:18] LABS: HEMATOCRIT 39.7 % (36.0-47.0); HEMOGLOBIN 13.5 g/dl (12.0-16.0); MEAN CORPUSCULAR HEMOGLOBIN 37.5 pg (27.0-33.0); MEAN CORPUSCULAR VOLUME 110.3 fl (80.0-96.0); PLATELET COUNT, AUTOMATED 317 10^3/uL (150-450); RED CELL DISTRIBUTION WIDTH 11.9 % (11.5-14.5)
[2017-09-14 07:33] LABS: ANION GAP 8 MEQ/L (8-16); BLOOD UREA NITROGEN 19 MG/DL (7-18); CALCIUM LEVEL 9.2 MG/DL (8.8-10.2); CARBON DIOXIDE LEVEL 26 MEQ/L (21-32); CHLORIDE LEVEL 108 MEQ/L (98-107); CREATININE FOR GFR 0.81 MG/DL (0.55-1.30); GLOMERULAR FILTRATION RATE > 60.0 (>45); GLUCOSE, FASTING 114 MG/DL (70-100); POTASSIUM SERUM 3.8 MEQ/L (3.5-5.1); SODIUM LEVEL 142 MEQ/L (136-145)
[2017-09-14] MEDS: VALSARTAN 80 MG TAB (DIOVAN) PO ×3 (08:57→20:41)
[2017-09-14] MEDS: ASPIRIN 81 MG ENTERIC TAB PO (08:57)
[2017-09-14] MEDS: NYSTATIN 500,000 U/5 ML SUSP UDC SSP ×4 (08:57→20:41)
[2017-09-14] MEDS: CLOPIDOGREL 75 MG TAB PO (08:57)
[2017-09-14] MEDS: SENNA 8.6 MG TAB (SENOKOT) PO ×2 (08:57→20:39)
[2017-09-14] MEDS: ACETAMINOPHEN TAB 650MG DOSE (2X325MG) PO (08:58)
[2017-09-14] MEDS: ANALGESIC BALM CRM 120 GM TOP ×3 (08:58→20:42)
[2017-09-14] MEDS: NYSTATIN 100,000 UNITS/GM TOPICAL PWD 15 GM TOP ×2 (09:00→20:42)
[2017-09-14] MEDS: ENOXAPARIN 40 MG/0.4 ML SYRINGE (J1650) SC (09:00)
[2017-09-14] MEDS: ATORVASTATIN 10 MG TAB PO (20:41)
[2017-09-14] MEDS: LACRILUBE (AKWA TEARS) OPHTH OINT 3.5 GM OS (20:42)
[2017-09-15] MEDS: ACETAMINOPHEN TAB 650MG DOSE (2X325MG) PO ×3 (06:50→20:39)
[2017-09-15 07:39] LABS: HEMATOCRIT 39.8 % (36.0-47.0); HEMOGLOBIN 13.5 g/dl (12.0-16.0); MEAN CORPUSCULAR HEMOGLOBIN 37.9 pg (27.0-33.0); MEAN CORPUSCULAR HGB CONC 33.9 g/dl (32.0-36.5); MEAN CORPUSCULAR VOLUME 111.8 fl (80.0-96.0); PLATELET COUNT, AUTOMATED 323 10^3/uL (150-450); RED BLOOD COUNT 3.56 10^6/uL (4.00-5.40); RED CELL DISTRIBUTION WIDTH 11.9 % (11.5-14.5); WHITE BLOOD COUNT 8.7 10^3/uL (4.0-10.0)
[2017-09-15] MEDS: ASPIRIN 81 MG ENTERIC TAB PO (09:06)
[2017-09-15] MEDS: VALSARTAN 80 MG TAB (DIOVAN) PO ×3 (09:06→20:11)
[2017-09-15] MEDS: NYSTATIN 500,000 U/5 ML SUSP UDC SSP ×4 (09:06→20:09)
[2017-09-15] MEDS: SENNA 8.6 MG TAB (SENOKOT) PO ×2 (09:06→20:11)
[2017-09-15] MEDS: CLOPIDOGREL 75 MG TAB PO (09:06)
[2017-09-15] MEDS: ANALGESIC BALM CRM 120 GM TOP ×3 (09:07→20:12)
[2017-09-15] MEDS: NYSTATIN 100,000 UNITS/GM TOPICAL PWD 15 GM TOP ×2 (09:07→20:13)
[2017-09-15] MEDS: ENOXAPARIN 40 MG/0.4 ML SYRINGE (J1650) SC (14:04)
[2017-09-15 19:10] LABS: KETONE, URINE AUTO RFX NEGATIVE (NEGATIVE); MUCUS, URINE RFX SMALL (NEGATIVE); NITRITE, URINE AUTO RFX NEGATIVE (NEGATIVE); RBC, URINE AUTO RFX TNTC /HPF (0-3); SPECIFIC GRAVITY UR AUTO RFX 1.027 (1.002-1.035); SQUAM EPITHELIAL CELL UR AURFX 1 /HPF (0-6)
[2017-09-15] MEDS: ATORVASTATIN 10 MG TAB PO (20:11)
[2017-09-15] MEDS: LACRILUBE (AKWA TEARS) OPHTH OINT 3.5 GM OS (20:11)
[2017-09-15 21:10] LABS: LEUKOCYTE ESTERASE UR AUTO RFX 2+ (NEGATIVE); WBC, URINE AUTO RFX TNTC /HPF (0-3)
[2017-09-16 06:49] LABS: HEMATOCRIT 39.9 % (36.0-47.0); HEMOGLOBIN 13.5 g/dl (12.0-16.0); MEAN CORPUSCULAR HEMOGLOBIN 38.1 pg (27.0-33.0); MEAN CORPUSCULAR HGB CONC 33.8 g/dl (32.0-36.5); MEAN CORPUSCULAR VOLUME 112.7 fl (80.0-96.0); PLATELET COUNT, AUTOMATED 309 10^3/uL (150-450); RED BLOOD COUNT 3.54 10^6/uL (4.00-5.40); WHITE BLOOD COUNT 7.5 10^3/uL (4.0-10.0)
[2017-09-16 07:17] LABS: ALBUMIN 3.2 GM/DL (3.2-5.2); ALBUMIN/GLOBULIN RATIO 0.74 (1.00-1.93); ALKALINE PHOSPHATASE 134 U/L (45-117); ALT/SGPT 26 U/L (12-78); ANION GAP 8 MEQ/L (8-16); AST/SGOT 29 U/L (7-37); BILIRUBIN,TOTAL 0.3 MG/DL (0.2-1.0); BLOOD UREA NITROGEN 32 MG/DL (7-18); CALCIUM LEVEL 9.3 MG/DL (8.8-10.2); CARBON DIOXIDE LEVEL 28 MEQ/L (21-32); CHLORIDE LEVEL 108 MEQ/L (98-107); CREATININE FOR GFR 0.99 MG/DL (0.55-1.30); GLOMERULAR FILTRATION RATE 59.2 (>45); GLUCOSE, FASTING 115 MG/DL (70-100); POTASSIUM SERUM 4.1 MEQ/L (3.5-5.1); SODIUM LEVEL 144 MEQ/L (136-145); TOTAL PROTEIN 7.5 GM/DL (6.4-8.2)
[2017-09-16] MEDS: VALSARTAN 80 MG TAB (DIOVAN) PO ×3 (09:29→20:08)
[2017-09-16] MEDS: SENNA 8.6 MG TAB (SENOKOT) PO ×2 (09:30→20:09)
[2017-09-16] MEDS: CLOPIDOGREL 75 MG TAB PO (09:30)
[2017-09-16] MEDS: ANALGESIC BALM CRM 120 GM TOP ×3 (09:30→20:09)
[2017-09-16] MEDS: ASPIRIN 81 MG ENTERIC TAB PO (09:30)
[2017-09-16] MEDS: ENOXAPARIN 40 MG/0.4 ML SYRINGE (J1650) SC (09:30)
[2017-09-16] MEDS: NYSTATIN 100,000 UNITS/GM TOPICAL PWD 15 GM TOP ×2 (09:30→20:09)
[2017-09-16] MEDS: ACETAMINOPHEN TAB 650MG DOSE (2X325MG) PO (16:54)
[2017-09-16] MEDS: ATORVASTATIN 10 MG TAB PO (20:08)
[2017-09-16] MEDS: LACRILUBE (AKWA TEARS) OPHTH OINT 3.5 GM OS (20:09)
[2017-09-17 06:52] LABS: HEMATOCRIT 40.5 % (36.0-47.0); HEMOGLOBIN 13.8 g/dl (12.0-16.0); MEAN CORPUSCULAR HEMOGLOBIN 37.7 pg (27.0-33.0); MEAN CORPUSCULAR HGB CONC 34.1 g/dl (32.0-36.5); MEAN CORPUSCULAR VOLUME 110.7 fl (80.0-96.0); PLATELET COUNT, AUTOMATED 341 10^3/uL (150-450); RED BLOOD COUNT 3.66 10^6/uL (4.00-5.40); RED CELL DISTRIBUTION WIDTH 11.8 % (11.5-14.5); WHITE BLOOD COUNT 8.5 10^3/uL (4.0-10.0)
[2017-09-17 07:19] LABS: ALBUMIN 3.3 GM/DL (3.2-5.2); ALBUMIN/GLOBULIN RATIO 0.94 (1.00-1.93); ALKALINE PHOSPHATASE 136 U/L (45-117); ALT/SGPT 24 U/L (12-78); ANION GAP 9 MEQ/L (8-16); AST/SGOT 25 U/L (7-37); BILIRUBIN,TOTAL 0.3 MG/DL (0.2-1.0); BLOOD UREA NITROGEN 27 MG/DL (7-18); CALCIUM LEVEL 9.4 MG/DL (8.8-10.2); CARBON DIOXIDE LEVEL 26 MEQ/L (21-32); CHLORIDE LEVEL 109 MEQ/L (98-107); GLOMERULAR FILTRATION RATE > 60.0 (>45); GLUCOSE, FASTING 106 MG/DL (70-100); POTASSIUM SERUM 3.9 MEQ/L (3.5-5.1); SODIUM LEVEL 144 MEQ/L (136-145); TOTAL PROTEIN 6.8 GM/DL (6.4-8.2)
[2017-09-17] MEDS: ASPIRIN 81 MG ENTERIC TAB PO (08:52)
[2017-09-17] MEDS: CLOPIDOGREL 75 MG TAB PO (08:52)
[2017-09-17] MEDS: SENNA 8.6 MG TAB (SENOKOT) PO ×2 (08:53→20:04)
[2017-09-17] MEDS: VALSARTAN 80 MG TAB (DIOVAN) PO ×3 (08:53→20:15)
[2017-09-17] MEDS: ENOXAPARIN 40 MG/0.4 ML SYRINGE (J1650) SC (08:54)
[2017-09-17] MEDS: ANALGESIC BALM CRM 120 GM TOP ×3 (08:54→20:20)
[2017-09-17] MEDS: NYSTATIN 100,000 UNITS/GM TOPICAL PWD 15 GM TOP ×2 (08:54→20:20)
[2017-09-17] MEDS: LevoFLOXacin 250 MG TABLET PO (12:13)
[2017-09-17] MEDS: ACETAMINOPHEN TAB 650MG DOSE (2X325MG) PO (16:33)
[2017-09-17] MEDS: ATORVASTATIN 10 MG TAB PO (20:15)
[2017-09-17] MEDS: LACRILUBE (AKWA TEARS) OPHTH OINT 3.5 GM OS (20:19)
[2017-09-18] MEDS: LevoFLOXacin 250 MG TABLET PO (05:50)
[2017-09-18 06:54] LABS: HEMATOCRIT 39.5 % (36.0-47.0); HEMOGLOBIN 13.1 g/dl (12.0-16.0); MEAN CORPUSCULAR HEMOGLOBIN 37.1 pg (27.0-33.0); MEAN CORPUSCULAR HGB CONC 33.2 g/dl (32.0-36.5); MEAN CORPUSCULAR VOLUME 111.9 fl (80.0-96.0); PLATELET COUNT, AUTOMATED 305 10^3/uL (150-450); RED BLOOD COUNT 3.53 10^6/uL (4.00-5.40); RED CELL DISTRIBUTION WIDTH 11.8 % (11.5-14.5); WHITE BLOOD COUNT 6.3 10^3/uL (4.0-10.0)
[2017-09-18 07:20] LABS: ALBUMIN 3.1 GM/DL (3.2-5.2); ALBUMIN/GLOBULIN RATIO 0.74 (1.00-1.93); ALKALINE PHOSPHATASE 138 U/L (45-117); ALT/SGPT 24 U/L (12-78); ANION GAP 8 MEQ/L (8-16); AST/SGOT 25 U/L (7-37); BILIRUBIN,TOTAL 0.3 MG/DL (0.2-1.0); BLOOD UREA NITROGEN 24 MG/DL (7-18); CALCIUM LEVEL 9.2 MG/DL (8.8-10.2); CARBON DIOXIDE LEVEL 27 MEQ/L (21-32); CHLORIDE LEVEL 107 MEQ/L (98-107); CREATININE FOR GFR 0.91 MG/DL (0.55-1.30); GLOMERULAR FILTRATION RATE > 60.0 (>45); GLUCOSE, FASTING 125 MG/DL (70-100); POTASSIUM SERUM 3.8 MEQ/L (3.5-5.1); SODIUM LEVEL 142 MEQ/L (136-145); TOTAL PROTEIN 7.3 GM/DL (6.4-8.2)
[2017-09-18] MEDS: ANALGESIC BALM CRM 120 GM TOP ×3 (07:39→22:13)
[2017-09-18] MEDS: ENOXAPARIN 40 MG/0.4 ML SYRINGE (J1650) SC (08:16)
[2017-09-18] MEDS: NYSTATIN 100,000 UNITS/GM TOPICAL PWD 15 GM TOP ×2 (08:17→22:13)
[2017-09-18] MEDS: CLOPIDOGREL 75 MG TAB PO (08:17)
[2017-09-18] MEDS: ASPIRIN 81 MG ENTERIC TAB PO (08:17)
[2017-09-18] MEDS: ACETAMINOPHEN TAB 650MG DOSE (2X325MG) PO ×2 (08:17→18:46)
[2017-09-18] MEDS: VALSARTAN 80 MG TAB (DIOVAN) PO ×3 (08:17→22:12)
[2017-09-18] MEDS: SENNA 8.6 MG TAB (SENOKOT) PO ×2 (08:18→21:00)
[2017-09-18] MEDS: ATORVASTATIN 10 MG TAB PO (22:12)
[2017-09-18] MEDS: LACRILUBE (AKWA TEARS) OPHTH OINT 3.5 GM OS (22:13)
[2017-09-19] MEDS: LevoFLOXacin 250 MG TABLET PO (05:37)
[2017-09-19] MEDS: ENOXAPARIN 40 MG/0.4 ML SYRINGE (J1650) SC (08:20)
[2017-09-19] MEDS: ANALGESIC BALM CRM 120 GM TOP ×3 (08:20→20:35)
[2017-09-19] MEDS: CLOPIDOGREL 75 MG TAB PO (08:20)
[2017-09-19] MEDS: SENNA 8.6 MG TAB (SENOKOT) PO ×2 (08:20→20:34)
[2017-09-19] MEDS: VALSARTAN 80 MG TAB (DIOVAN) PO ×3 (08:20→20:33)
[2017-09-19] MEDS: ASPIRIN 81 MG ENTERIC TAB PO (08:20)
[2017-09-19] MEDS: NYSTATIN 100,000 UNITS/GM TOPICAL PWD 15 GM TOP ×2 (08:21→20:34)
[2017-09-19] MEDS: ACETAMINOPHEN TAB 650MG DOSE (2X325MG) PO ×2 (14:47→20:33)
[2017-09-19] MEDS: ATORVASTATIN 10 MG TAB PO (20:32)
[2017-09-19] MEDS: LACRILUBE (AKWA TEARS) OPHTH OINT 3.5 GM OS (20:34)
[2017-09-20] MEDS: LevoFLOXacin 250 MG TABLET PO (05:50)
[2017-09-20 07:07] LABS: ANION GAP 8 MEQ/L (8-16); BLOOD UREA NITROGEN 24 MG/DL (7-18); CALCIUM LEVEL 9.2 MG/DL (8.8-10.2); CARBON DIOXIDE LEVEL 25 MEQ/L (21-32); CHLORIDE LEVEL 111 MEQ/L (98-107); GLOMERULAR FILTRATION RATE > 60.0 (>45); GLUCOSE, FASTING 120 MG/DL (70-100); SODIUM LEVEL 144 MEQ/L (136-145)
[2017-09-20] MEDS: ASPIRIN 81 MG ENTERIC TAB PO (09:05)
[2017-09-20] MEDS: CLOPIDOGREL 75 MG TAB PO (09:05)
[2017-09-20] MEDS: VALSARTAN 80 MG TAB (DIOVAN) PO ×3 (09:06→20:57)
[2017-09-20] MEDS: NYSTATIN 100,000 UNITS/GM TOPICAL PWD 15 GM TOP ×2 (09:06→20:58)
[2017-09-20] MEDS: ENOXAPARIN 40 MG/0.4 ML SYRINGE (J1650) SC (09:06)
[2017-09-20] MEDS: SENNA 8.6 MG TAB (SENOKOT) PO ×2 (09:07→21:00)
[2017-09-20] MEDS: ANALGESIC BALM CRM 120 GM TOP ×3 (09:07→20:58)
[2017-09-20] MEDS: ACETAMINOPHEN TAB 650MG DOSE (2X325MG) PO ×2 (14:49→20:57)
[2017-09-20] MEDS: ATORVASTATIN 10 MG TAB PO (20:56)
[2017-09-20] MEDS: LACRILUBE (AKWA TEARS) OPHTH OINT 3.5 GM OS (21:00)
[2017-09-21] MEDS: LevoFLOXacin 250 MG TABLET PO (06:11)
[2017-09-21 06:47] LABS: HEMATOCRIT 38.1 % (36.0-47.0); HEMOGLOBIN 12.9 g/dl (12.0-16.0); MEAN CORPUSCULAR HEMOGLOBIN 37.3 pg (27.0-33.0); MEAN CORPUSCULAR HGB CONC 33.9 g/dl (32.0-36.5); MEAN CORPUSCULAR VOLUME 110.1 fl (80.0-96.0); PLATELET COUNT, AUTOMATED 305 10^3/uL (150-450); RED BLOOD COUNT 3.46 10^6/uL (4.00-5.40); RED CELL DISTRIBUTION WIDTH 11.5 % (11.5-14.5); WHITE BLOOD COUNT 7.4 10^3/uL (4.0-10.0)
[2017-09-21] MEDS: CLOPIDOGREL 75 MG TAB PO (09:05)
[2017-09-21] MEDS: SENNA 8.6 MG TAB (SENOKOT) PO ×2 (09:05→20:46)
[2017-09-21] MEDS: ANALGESIC BALM CRM 120 GM TOP ×3 (09:06→20:50)
[2017-09-21] MEDS: VALSARTAN 80 MG TAB (DIOVAN) PO ×3 (09:06→20:48)
[2017-09-21] MEDS: ASPIRIN 81 MG ENTERIC TAB PO (09:06)
[2017-09-21] MEDS: ENOXAPARIN 40 MG/0.4 ML SYRINGE (J1650) SC (09:06)
[2017-09-21] MEDS: NYSTATIN 100,000 UNITS/GM TOPICAL PWD 15 GM TOP ×2 (09:07→20:50)
[2017-09-21] MEDS: ACETAMINOPHEN TAB 650MG DOSE (2X325MG) PO (17:12)
[2017-09-21] MEDS: ATORVASTATIN 10 MG TAB PO (20:49)
[2017-09-21] MEDS: LACRILUBE (AKWA TEARS) OPHTH OINT 3.5 GM OS (21:02)
[2017-09-22] MEDS: ACETAMINOPHEN TAB 650MG DOSE (2X325MG) PO ×4 (03:18→20:59)
[2017-09-22] MEDS: LevoFLOXacin 250 MG TABLET PO (05:43)
[2017-09-22 07:25] LABS: ALBUMIN 3.5 GM/DL (3.2-5.2); ALBUMIN/GLOBULIN RATIO 0.95 (1.00-1.93); ALKALINE PHOSPHATASE 133 U/L (45-117); ALT/SGPT 34 U/L (12-78); ANION GAP 7 MEQ/L (8-16); AST/SGOT 32 U/L (7-37); BILIRUBIN,TOTAL 0.4 MG/DL (0.2-1.0); BLOOD UREA NITROGEN 18 MG/DL (7-18); CALCIUM LEVEL 9.3 MG/DL (8.8-10.2); CARBON DIOXIDE LEVEL 26 MEQ/L (21-32); CHLORIDE LEVEL 112 MEQ/L (98-107); CREATININE FOR GFR 0.78 MG/DL (0.55-1.30); GLOMERULAR FILTRATION RATE > 60.0 (>45); GLUCOSE, FASTING 100 MG/DL (70-100); POTASSIUM SERUM 4.2 MEQ/L (3.5-5.1); SODIUM LEVEL 145 MEQ/L (136-145); TOTAL PROTEIN 7.2 GM/DL (6.4-8.2)
[2017-09-22] MEDS: CLOPIDOGREL 75 MG TAB PO (08:45)
[2017-09-22] MEDS: VALSARTAN 80 MG TAB (DIOVAN) PO ×3 (08:46→20:06)
[2017-09-22] MEDS: ANALGESIC BALM CRM 120 GM TOP ×3 (08:46→20:06)
[2017-09-22] MEDS: ASPIRIN 81 MG ENTERIC TAB PO (08:46)
[2017-09-22] MEDS: NYSTATIN 100,000 UNITS/GM TOPICAL PWD 15 GM TOP ×2 (08:47→20:06)
[2017-09-22] MEDS: ENOXAPARIN 40 MG/0.4 ML SYRINGE (J1650) SC (08:47)
[2017-09-22] MEDS: SENNA 8.6 MG TAB (SENOKOT) PO ×2 (08:49→20:04)
[2017-09-22] MEDS: ATORVASTATIN 10 MG TAB PO (20:04)
[2017-09-22] MEDS: LACRILUBE (AKWA TEARS) OPHTH OINT 3.5 GM OS (20:06)
[2017-09-23] MEDS: LevoFLOXacin 250 MG TABLET PO (05:48)
[2017-09-23] MEDS: VALSARTAN 80 MG TAB (DIOVAN) PO ×3 (09:14→21:41)
[2017-09-23] MEDS: SENNA 8.6 MG TAB (SENOKOT) PO ×2 (09:14→20:43)
[2017-09-23] MEDS: ASPIRIN 81 MG ENTERIC TAB PO (09:15)
[2017-09-23] MEDS: CLOPIDOGREL 75 MG TAB PO (09:15)
[2017-09-23] MEDS: ENOXAPARIN 40 MG/0.4 ML SYRINGE (J1650) SC (09:15)
[2017-09-23] MEDS: NYSTATIN 100,000 UNITS/GM TOPICAL PWD 15 GM TOP ×2 (09:15→21:42)
[2017-09-23] MEDS: ANALGESIC BALM CRM 120 GM TOP ×3 (09:16→21:42)
[2017-09-23] MEDS: ACETAMINOPHEN TAB 650MG DOSE (2X325MG) PO (17:09)
[2017-09-23] MEDS: ATORVASTATIN 10 MG TAB PO (21:41)
[2017-09-23] MEDS: LACRILUBE (AKWA TEARS) OPHTH OINT 3.5 GM OS (21:41)
[2017-09-24] MEDS: ACETAMINOPHEN TAB 650MG DOSE (2X325MG) PO ×2 (06:15→18:21)
[2017-09-24] MEDS: CLOPIDOGREL 75 MG TAB PO (08:29)
[2017-09-24] MEDS: ASPIRIN 81 MG ENTERIC TAB PO (08:29)
[2017-09-24] MEDS: ENOXAPARIN 40 MG/0.4 ML SYRINGE (J1650) SC (08:29)
[2017-09-24] MEDS: SENNA 8.6 MG TAB (SENOKOT) PO ×2 (08:29→20:23)
[2017-09-24] MEDS: VALSARTAN 80 MG TAB (DIOVAN) PO ×3 (08:29→20:21)
[2017-09-24] MEDS: ANALGESIC BALM CRM 120 GM TOP ×3 (08:30→20:22)
[2017-09-24] MEDS: NYSTATIN 100,000 UNITS/GM TOPICAL PWD 15 GM TOP ×2 (08:30→20:23)
[2017-09-24] MEDS: POLYVINYL ALCOHOL OPHTH SOLN 15 ML(LIQUITEARS) OU (11:16)
[2017-09-24] MEDS: LACRILUBE (AKWA TEARS) OPHTH OINT 3.5 GM OS (20:22)
[2017-09-24] MEDS: ATORVASTATIN 10 MG TAB PO (20:22)
[2017-09-25] MEDS: VALSARTAN 80 MG TAB (DIOVAN) PO ×3 (09:05→20:31)
[2017-09-25] MEDS: CLOPIDOGREL 75 MG TAB PO (09:05)
[2017-09-25] MEDS: ACETAMINOPHEN TAB 650MG DOSE (2X325MG) PO ×2 (09:05→16:20)
[2017-09-25] MEDS: SENNA 8.6 MG TAB (SENOKOT) PO ×2 (09:05→20:31)
[2017-09-25] MEDS: ASPIRIN 81 MG ENTERIC TAB PO (09:05)
[2017-09-25] MEDS: ENOXAPARIN 40 MG/0.4 ML SYRINGE (J1650) SC (09:06)
[2017-09-25] MEDS: NYSTATIN 100,000 UNITS/GM TOPICAL PWD 15 GM TOP ×2 (09:06→20:32)
[2017-09-25] MEDS: ANALGESIC BALM CRM 120 GM TOP ×3 (09:06→20:32)
[2017-09-25] MEDS: LACRILUBE (AKWA TEARS) OPHTH OINT 3.5 GM OS (20:31)
[2017-09-25] MEDS: ATORVASTATIN 10 MG TAB PO (20:31)
[2017-09-26] MEDS: ENOXAPARIN 40 MG/0.4 ML SYRINGE (J1650) SC (08:39)
[2017-09-26] MEDS: VALSARTAN 80 MG TAB (DIOVAN) PO ×3 (08:39→20:48)
[2017-09-26] MEDS: NYSTATIN 100,000 UNITS/GM TOPICAL PWD 15 GM TOP ×2 (08:40→20:49)
[2017-09-26] MEDS: ACETAMINOPHEN TAB 650MG DOSE (2X325MG) PO ×2 (08:40→18:34)
[2017-09-26] MEDS: SENNA 8.6 MG TAB (SENOKOT) PO ×2 (08:40→20:48)
[2017-09-26] MEDS: ASPIRIN 81 MG ENTERIC TAB PO (08:40)
[2017-09-26] MEDS: CLOPIDOGREL 75 MG TAB PO (08:40)
[2017-09-26] MEDS: ANALGESIC BALM CRM 120 GM TOP ×3 (08:41→20:49)
[2017-09-26] MEDS: ATORVASTATIN 10 MG TAB PO (20:48)
[2017-09-26] MEDS: LACRILUBE (AKWA TEARS) OPHTH OINT 3.5 GM OS (20:49)
[2017-09-27] MEDS: VALSARTAN 80 MG TAB (DIOVAN) PO (09:00)
[2017-09-27] MEDS: CLOPIDOGREL 75 MG TAB PO (09:38)
[2017-09-27] MEDS: ENOXAPARIN 40 MG/0.4 ML SYRINGE (J1650) SC (09:38)
[2017-09-27] MEDS: ASPIRIN 81 MG ENTERIC TAB PO (09:38)
[2017-09-27] MEDS: SENNA 8.6 MG TAB (SENOKOT) PO ×2 (09:38→20:27)
[2017-09-27] MEDS: ANALGESIC BALM CRM 120 GM TOP ×3 (09:39→20:28)
[2017-09-27] MEDS: NYSTATIN 100,000 UNITS/GM TOPICAL PWD 15 GM TOP ×2 (09:39→20:28)
[2017-09-27] MEDS: NS 1,000 ML IV (14:15)
[2017-09-27] MEDS: NS 500 ML IV (14:15)
[2017-09-27 14:42] LABS: HEMATOCRIT 41.4 % (36.0-47.0); HEMOGLOBIN 13.9 g/dl (12.0-16.0); MEAN CORPUSCULAR HEMOGLOBIN 37.1 pg (27.0-33.0); MEAN CORPUSCULAR HGB CONC 33.6 g/dl (32.0-36.5); MEAN CORPUSCULAR VOLUME 110.4 fl (80.0-96.0); PLATELET COUNT, AUTOMATED 206 10^3/uL (150-450); RED BLOOD COUNT 3.75 10^6/uL (4.00-5.40); RED CELL DISTRIBUTION WIDTH 11.8 % (11.5-14.5)
[2017-09-27 15:02] LABS: ALBUMIN 3.6 GM/DL (3.2-5.2); ALBUMIN/GLOBULIN RATIO 1.03 (1.00-1.93); ALKALINE PHOSPHATASE 133 U/L (45-117); ALT/SGPT 40 U/L (12-78); ANION GAP 8 MEQ/L (8-16); AST/SGOT 43 U/L (7-37); BILIRUBIN,DIRECT < 0.1 MG/DL (0.0-0.2); BILIRUBIN,TOTAL 0.2 MG/DL (0.2-1.0); BLOOD UREA NITROGEN 19 MG/DL (7-18); CALCIUM LEVEL 8.8 MG/DL (8.8-10.2); CARBON DIOXIDE LEVEL 27 MEQ/L (21-32); CHLORIDE LEVEL 108 MEQ/L (98-107); CREATININE FOR GFR 0.81 MG/DL (0.55-1.30); GLOMERULAR FILTRATION RATE > 60.0 (>45); GLUCOSE, FASTING 97 MG/DL (70-100); POTASSIUM SERUM 4.2 MEQ/L (3.5-5.1); SODIUM LEVEL 143 MEQ/L (136-145); TOTAL PROTEIN 7.1 GM/DL (6.4-8.2)
[2017-09-27] MEDS: LACRILUBE (AKWA TEARS) OPHTH OINT 3.5 GM OS (20:27)
[2017-09-27] MEDS: ATORVASTATIN 10 MG TAB PO (20:27)
[2017-09-27] MEDS: ACETAMINOPHEN TAB 650MG DOSE (2X325MG) PO (20:46)
[2017-09-28 06:50] LABS: HEMATOCRIT 40.1 % (36.0-47.0); HEMOGLOBIN 13.3 g/dl (12.0-16.0); MEAN CORPUSCULAR HEMOGLOBIN 36.6 pg (27.0-33.0); MEAN CORPUSCULAR HGB CONC 33.2 g/dl (32.0-36.5); MEAN CORPUSCULAR VOLUME 110.5 fl (80.0-96.0); PLATELET COUNT, AUTOMATED 201 10^3/uL (150-450); RED BLOOD COUNT 3.63 10^6/uL (4.00-5.40); RED CELL DISTRIBUTION WIDTH 11.6 % (11.5-14.5); WHITE BLOOD COUNT 6.2 10^3/uL (4.0-10.0)
[2017-09-28 07:07] LABS: ANION GAP 8 MEQ/L (8-16); BLOOD UREA NITROGEN 15 MG/DL (7-18); CALCIUM LEVEL 8.9 MG/DL (8.8-10.2); CARBON DIOXIDE LEVEL 24 MEQ/L (21-32); CHLORIDE LEVEL 112 MEQ/L (98-107); CREATININE FOR GFR 0.69 MG/DL (0.55-1.30); GLOMERULAR FILTRATION RATE > 60.0 (>45); GLUCOSE, FASTING 95 MG/DL (70-100); SODIUM LEVEL 144 MEQ/L (136-145)
[2017-09-28] MEDS: ENOXAPARIN 40 MG/0.4 ML SYRINGE (J1650) SC (09:08)
[2017-09-28] MEDS: ASPIRIN 81 MG ENTERIC TAB PO (09:08)
[2017-09-28] MEDS: SENNA 8.6 MG TAB (SENOKOT) PO ×2 (09:08→19:18)
[2017-09-28] MEDS: CLOPIDOGREL 75 MG TAB PO (09:08)
[2017-09-28] MEDS: ANALGESIC BALM CRM 120 GM TOP ×3 (09:09→20:10)
[2017-09-28] MEDS: NYSTATIN 100,000 UNITS/GM TOPICAL PWD 15 GM TOP ×2 (09:09→20:11)
[2017-09-28] MEDS: ACETAMINOPHEN TAB 650MG DOSE (2X325MG) PO ×2 (09:09→17:58)
[2017-09-28] MEDS: ATORVASTATIN 10 MG TAB PO (20:09)
[2017-09-28] MEDS: LACRILUBE (AKWA TEARS) OPHTH OINT 3.5 GM OS (20:10)
[2017-09-29 06:46] LABS: HEMATOCRIT 37.2 % (36.0-47.0); HEMOGLOBIN 12.8 g/dl (12.0-16.0); MEAN CORPUSCULAR HEMOGLOBIN 37.5 pg (27.0-33.0); MEAN CORPUSCULAR HGB CONC 34.4 g/dl (32.0-36.5); MEAN CORPUSCULAR VOLUME 109.1 fl (80.0-96.0); PLATELET COUNT, AUTOMATED 180 10^3/uL (150-450); RED BLOOD COUNT 3.41 10^6/uL (4.00-5.40); RED CELL DISTRIBUTION WIDTH 11.6 % (11.5-14.5); WHITE BLOOD COUNT 5.4 10^3/uL (4.0-10.0)
[2017-09-29 07:09] LABS: ANION GAP 7 MEQ/L (8-16); BLOOD UREA NITROGEN 11 MG/DL (7-18); CALCIUM LEVEL 8.8 MG/DL (8.8-10.2); CARBON DIOXIDE LEVEL 25 MEQ/L (21-32); CHLORIDE LEVEL 113 MEQ/L (98-107); CREATININE FOR GFR 0.64 MG/DL (0.55-1.30); GLOMERULAR FILTRATION RATE > 60.0 (>45); GLUCOSE, FASTING 93 MG/DL (70-100); POTASSIUM SERUM 4.2 MEQ/L (3.5-5.1); SODIUM LEVEL 145 MEQ/L (136-145)
[2017-09-29] MEDS: ASPIRIN 81 MG ENTERIC TAB PO (08:12)
[2017-09-29] MEDS: NYSTATIN 100,000 UNITS/GM TOPICAL PWD 15 GM TOP ×2 (08:13→20:08)
[2017-09-29] MEDS: ANALGESIC BALM CRM 120 GM TOP ×3 (08:13→20:07)
[2017-09-29] MEDS: ENOXAPARIN 40 MG/0.4 ML SYRINGE (J1650) SC (08:13)
[2017-09-29] MEDS: CLOPIDOGREL 75 MG TAB PO (08:13)
[2017-09-29] MEDS: SENNA 8.6 MG TAB (SENOKOT) PO ×2 (08:13→20:07)
[2017-09-29 14:05] LABS: KETONE, URINE AUTO RFX NEGATIVE (NEGATIVE); LEUKOCYTE ESTERASE UR AUTO RFX NEGATIVE (NEGATIVE); MUCUS, URINE RFX SMALL (NEGATIVE); NITRITE, URINE AUTO RFX NEGATIVE (NEGATIVE); RBC, URINE AUTO RFX 2 /HPF (0-3); SPECIFIC GRAVITY UR AUTO RFX 1.017 (1.002-1.035); SQUAM EPITHELIAL CELL UR AURFX 1 /HPF (0-6); WBC, URINE AUTO RFX 2 /HPF (0-3)
[2017-09-29] MEDS: VALSARTAN 80 MG TAB (DIOVAN) PO (20:04)
[2017-09-29] MEDS: ATORVASTATIN 10 MG TAB PO (20:05)
[2017-09-29] MEDS: ACETAMINOPHEN TAB 650MG DOSE (2X325MG) PO (20:05)
[2017-09-29] MEDS: LACRILUBE (AKWA TEARS) OPHTH OINT 3.5 GM OS (20:07)
[2017-09-30 07:10] LABS: HEMATOCRIT 39.2 % (36.0-47.0); HEMOGLOBIN 13.5 g/dl (12.0-16.0); MEAN CORPUSCULAR HEMOGLOBIN 37.4 pg (27.0-33.0); MEAN CORPUSCULAR HGB CONC 34.4 g/dl (32.0-36.5); MEAN CORPUSCULAR VOLUME 108.6 fl (80.0-96.0); PLATELET COUNT, AUTOMATED 173 10^3/uL (150-450); RED BLOOD COUNT 3.61 10^6/uL (4.00-5.40); RED CELL DISTRIBUTION WIDTH 11.5 % (11.5-14.5); WHITE BLOOD COUNT 4.4 10^3/uL (4.0-10.0)
[2017-09-30 07:28] LABS: ANION GAP 8 MEQ/L (8-16); BLOOD UREA NITROGEN 11 MG/DL (7-18); CALCIUM LEVEL 9.1 MG/DL (8.8-10.2); CARBON DIOXIDE LEVEL 24 MEQ/L (21-32); CHLORIDE LEVEL 111 MEQ/L (98-107); CREATININE FOR GFR 0.64 MG/DL (0.55-1.30); GLOMERULAR FILTRATION RATE > 60.0 (>45); GLUCOSE, FASTING 100 MG/DL (70-100); SODIUM LEVEL 143 MEQ/L (136-145)
[2017-09-30] MEDS: SENNA 8.6 MG TAB (SENOKOT) PO ×2 (08:27→21:00)
[2017-09-30] MEDS: CLOPIDOGREL 75 MG TAB PO (08:27)
[2017-09-30] MEDS: ANALGESIC BALM CRM 120 GM TOP ×3 (08:28→20:20)
[2017-09-30] MEDS: ENOXAPARIN 40 MG/0.4 ML SYRINGE (J1650) SC (08:28)
[2017-09-30] MEDS: VALSARTAN 80 MG TAB (DIOVAN) PO ×3 (08:28→19:48)
[2017-09-30] MEDS: ASPIRIN 81 MG ENTERIC TAB PO (08:28)
[2017-09-30] MEDS: NYSTATIN 100,000 UNITS/GM TOPICAL PWD 15 GM TOP ×2 (08:29→20:20)
[2017-09-30] MEDS: ACETAMINOPHEN TAB 650MG DOSE (2X325MG) PO (16:23)
[2017-09-30] MEDS: ATORVASTATIN 10 MG TAB PO (19:46)
[2017-09-30] MEDS: LACRILUBE (AKWA TEARS) OPHTH OINT 3.5 GM OS (20:20)
[2017-10-01 07:00] LABS: HEMATOCRIT 37.6 % (36.0-47.0); MEAN CORPUSCULAR HEMOGLOBIN 37.4 pg (27.0-33.0); MEAN CORPUSCULAR HGB CONC 34.6 g/dl (32.0-36.5); PLATELET COUNT, AUTOMATED 170 10^3/uL (150-450); RED BLOOD COUNT 3.48 10^6/uL (4.00-5.40); RED CELL DISTRIBUTION WIDTH 11.6 % (11.5-14.5); WHITE BLOOD COUNT 7.4 10^3/uL (4.0-10.0)
[2017-10-01 07:22] LABS: ANION GAP 6 MEQ/L (8-16); BLOOD UREA NITROGEN 12 MG/DL (7-18); CALCIUM LEVEL 8.8 MG/DL (8.8-10.2); CARBON DIOXIDE LEVEL 26 MEQ/L (21-32); CHLORIDE LEVEL 111 MEQ/L (98-107); CREATININE FOR GFR 0.62 MG/DL (0.55-1.30); GLOMERULAR FILTRATION RATE > 60.0 (>45); GLUCOSE, FASTING 97 MG/DL (70-100); SODIUM LEVEL 143 MEQ/L (136-145)
[2017-10-01] MEDS: ASPIRIN 81 MG ENTERIC TAB PO (08:39)
[2017-10-01] MEDS: CLOPIDOGREL 75 MG TAB PO (08:39)
[2017-10-01] MEDS: VALSARTAN 80 MG TAB (DIOVAN) PO ×3 (08:39→20:37)
[2017-10-01] MEDS: SENNA 8.6 MG TAB (SENOKOT) PO ×2 (08:39→20:37)
[2017-10-01] MEDS: ENOXAPARIN 40 MG/0.4 ML SYRINGE (J1650) SC (08:40)
[2017-10-01] MEDS: NYSTATIN 100,000 UNITS/GM TOPICAL PWD 15 GM TOP ×2 (08:40→20:37)
[2017-10-01] MEDS: ANALGESIC BALM CRM 120 GM TOP ×3 (08:40→20:37)
[2017-10-01] MEDS: ACETAMINOPHEN TAB 650MG DOSE (2X325MG) PO (16:34)
[2017-10-01] MEDS: LACRILUBE (AKWA TEARS) OPHTH OINT 3.5 GM OS (20:37)
[2017-10-01] MEDS: ATORVASTATIN 10 MG TAB PO (20:37)
[2017-10-02 06:55] LABS: HEMATOCRIT 38.3 % (36.0-47.0); MEAN CORPUSCULAR HEMOGLOBIN 36.3 pg (27.0-33.0); MEAN CORPUSCULAR HGB CONC 33.9 g/dl (32.0-36.5); PLATELET COUNT, AUTOMATED 183 10^3/uL (150-450); RED BLOOD COUNT 3.58 10^6/uL (4.00-5.40); RED CELL DISTRIBUTION WIDTH 11.4 % (11.5-14.5); WHITE BLOOD COUNT 5.8 10^3/uL (4.0-10.0)
[2017-10-02 07:19] LABS: ANION GAP 7 MEQ/L (8-16); BLOOD UREA NITROGEN 11 MG/DL (7-18); CALCIUM LEVEL 9.2 MG/DL (8.8-10.2); CARBON DIOXIDE LEVEL 25 MEQ/L (21-32); CHLORIDE LEVEL 110 MEQ/L (98-107); GLOMERULAR FILTRATION RATE > 60.0 (>45); GLUCOSE, FASTING 90 MG/DL (70-100); POTASSIUM SERUM 3.9 MEQ/L (3.5-5.1); SODIUM LEVEL 142 MEQ/L (136-145)
[2017-10-02] MEDS: CLOPIDOGREL 75 MG TAB PO (08:36)
[2017-10-02] MEDS: ASPIRIN 81 MG ENTERIC TAB PO (08:36)
[2017-10-02] MEDS: SENNA 8.6 MG TAB (SENOKOT) PO (08:36)
[2017-10-02] MEDS: VALSARTAN 80 MG TAB (DIOVAN) PO (08:36)
[2017-10-02] MEDS: ANALGESIC BALM CRM 120 GM TOP (08:37)
[2017-10-02] MEDS: ENOXAPARIN 40 MG/0.4 ML SYRINGE (J1650) SC (08:37)
[2017-10-02] MEDS: NYSTATIN 100,000 UNITS/GM TOPICAL PWD 15 GM TOP (08:38)
== END 2017-10-02 12:40 | DRG 57 ==
LOC: M PM&R 09-26 16:29
DX: I69.354 Hemiplegia and hemiparesis following cerebral infarction affecting left non-dominant side (principal); B37.0 Candidal stomatitis; N39.0 Urinary tract infection, site not specified; I69.321 Dysphasia following cerebral infarction; I25.10 Atherosclerotic heart disease of native coronary artery without angina pectoris; I10 Essential (primary) hypertension; E66.3 Overweight; I69.390 Apraxia following cerebral infarction; E78.5 Hyperlipidemia, unspecified; I69.398 Other sequelae of cerebral infarction; I69.392 Facial weakness following cerebral infarction; H53.462 Homonymous bilateral field defects, left side; M19.042 Primary osteoarthritis, left hand; M19.012 Primary osteoarthritis, left shoulder; B96.1 Klebsiella pneumoniae [K. pneumoniae] as the cause of diseases classified elsewhere; I65.22 Occlusion and stenosis of left carotid artery; R32 Unspecified urinary incontinence; R48.1 Agnosia; Z96.642 Presence of left artificial hip joint; Z90.13 Acquired absence of bilateral breasts and nipples; Z91.040 Latex allergy status; Z91.048 Other nonmedicinal substance allergy status; Z79.82 Long term (current) use of aspirin; Z79.02 Long term (current) use of antithrombotics/antiplatelets; Z79.899 Other long term (current) drug therapy; Z85.3 Personal history of malignant neoplasm of breast; Z92.21 Personal history of antineoplastic chemotherapy; Z68.31 Body mass index [BMI] 31.0-31.9, adult

== ENCOUNTER → 2017-10-06 | Outpatient (REF) ==
[2017-10-06 10:06] LABS: BASO % 0.4 % (0.0-1.0); EOS # 0.1 10^3/uL (0.0-0.50); EOS % 0.7 % (0.0-3.0); HEMATOCRIT 39.5 % (36.0-47.0); HEMOGLOBIN 13.5 g/dl (12.0-16.0); IMMATURE GRANULOCYTE % 0.6 % (0-3.0); LYMPH # 1.9 10^3/uL (1.5-4.5); LYMPH % 16.5 % (24.0-44.0); MEAN CORPUSCULAR HEMOGLOBIN 36.7 pg (27.0-33.0); MEAN CORPUSCULAR HGB CONC 34.2 g/dl (32.0-36.5); MEAN CORPUSCULAR VOLUME 107.3 fl (80.0-96.0); MONO # 0.8 10^3/uL (0.0-0.8); MONO % 6.9 % (0.0-5.0); NEUTROPHILS # 8.5 10^3/uL (1.8-7.7); NEUTROPHILS % 74.9 % (36.0-66.0); PLATELET COUNT, AUTOMATED 215 10^3/uL (150-450); RED BLOOD COUNT 3.68 10^6/uL (4.00-5.40); RED CELL DISTRIBUTION WIDTH 11.7 % (11.5-14.5); WHITE BLOOD COUNT 11.4 10^3/uL (4.0-10.0)
[2017-10-06 10:26] LABS: ALBUMIN 3.5 GM/DL (3.2-5.2); ALKALINE PHOSPHATASE 120 U/L (45-117); ALT/SGPT 32 U/L (12-78); ANION GAP 8 MEQ/L (8-16); AST/SGOT 23 U/L (7-37); BILIRUBIN,TOTAL 0.9 MG/DL (0.2-1.0); BLOOD UREA NITROGEN 15 MG/DL (7-18); CALCIUM LEVEL 9.2 MG/DL (8.8-10.2); CARBON DIOXIDE LEVEL 28 MEQ/L (21-32); CHLORIDE LEVEL 105 MEQ/L (98-107); CHOLESTEROL LEVEL 107 MG/DL (<200); CHOLESTEROL RISK RATIO 2.815 (<5); CREATININE FOR GFR 0.79 MG/DL (0.55-1.30); GLOMERULAR FILTRATION RATE > 60.0 (>45); GLUCOSE, FASTING 114 MG/DL (70-100); HDL CHOLESTEROL 38 MG/DL (>40); NON-HDL-C 69 MG/DL; POTASSIUM SERUM 4.1 MEQ/L (3.5-5.1); SODIUM LEVEL 141 MEQ/L (136-145); TRIGLYCERIDES LEVEL 105 MG/DL (<150)
== END ==
DX: E78.00 Pure hypercholesterolemia, unspecified (principal)

== ENCOUNTER → 2017-10-21 | Outpatient (CLI) | payer MEDICARE ==
[~2017-10-21] MED LIST changes: -BISACODYL 10 MG SUPP PR; -GLUCAGON FOR INJ 1 MG VIAL (J1610) SC; -GLUCOSE 4 GM CHEW TABLET PO; +ISOVUE-370 76% 100ML VIAL (Q9967) As Ordered
== END ==
LOC: M RAD 08:23
DX: I63.031 Cerebral infarction due to thrombosis of right carotid artery (principal)
CPT/HCPCS: Q9967

== ENCOUNTER → 2017-11-04 | Outpatient (REF) ==
[2017-11-04 09:43] LABS: BASO # 0.1 10^3/uL (0.0-0.2); BASO % 0.7 % (0.0-1.0); EOS # 0.2 10^3/uL (0.0-0.50); EOS % 1.9 % (0.0-3.0); HEMOGLOBIN 12.1 g/dl (12.0-16.0); IMMATURE GRANULOCYTE % 0.3 % (0-3.0); MEAN CORPUSCULAR HEMOGLOBIN 35.7 pg (27.0-33.0); MEAN CORPUSCULAR HGB CONC 32.7 g/dl (32.0-36.5); MEAN CORPUSCULAR VOLUME 109.1 fl (80.0-96.0); MONO # 0.6 10^3/uL (0.0-0.8); MONO % 6.1 % (0.0-5.0); NEUTROPHILS # 6.7 10^3/uL (1.8-7.7); PLATELET COUNT, AUTOMATED 226 10^3/uL (150-450); RED BLOOD COUNT 3.39 10^6/uL (4.00-5.40); RED CELL DISTRIBUTION WIDTH 12.2 % (11.5-14.5); WHITE BLOOD COUNT 9.5 10^3/uL (4.0-10.0)
[2017-11-04 10:13] LABS: ALBUMIN 3.8 GM/DL (3.2-5.2); ALBUMIN/GLOBULIN RATIO 1.12 (1.00-1.93); ALKALINE PHOSPHATASE 98 U/L (45-117); ALT/SGPT 25 U/L (12-78); ANION GAP 11 MEQ/L (8-16); AST/SGOT 21 U/L (7-37); BILIRUBIN,TOTAL 0.5 MG/DL (0.2-1.0); BLOOD UREA NITROGEN 22 MG/DL (7-18); CALCIUM LEVEL 9.1 MG/DL (8.8-10.2); CARBON DIOXIDE LEVEL 24 MEQ/L (21-32); CHLORIDE LEVEL 110 MEQ/L (98-107); CREATININE FOR GFR 0.74 MG/DL (0.55-1.30); GLOMERULAR FILTRATION RATE > 60.0 (>45); GLUCOSE, FASTING 108 MG/DL (70-100); POTASSIUM SERUM 4.4 MEQ/L (3.5-5.1); SODIUM LEVEL 145 MEQ/L (136-145); TOTAL PROTEIN 7.2 GM/DL (6.4-8.2)
== END ==
DX: I10 Essential (primary) hypertension (principal)

== ENCOUNTER → 2017-12-05 | Outpatient (REF) | payer MEDICARE ==
[2017-12-05 09:42] LABS: BASO # 0.1 10^3/uL (0.0-0.2); BASO % 0.6 % (0.0-1.0); EOS # 0.1 10^3/uL (0.0-0.50); EOS % 1.1 % (0.0-3.0); HEMATOCRIT 37.4 % (36.0-47.0); HEMOGLOBIN 12.6 g/dl (12.0-15.5); IMMATURE GRANULOCYTE % 0.3 % (0-3.0); LYMPH # 2.1 10^3/uL (1.5-4.5); LYMPH % 17.9 % (24.0-44.0); MEAN CORPUSCULAR HEMOGLOBIN 34.7 pg (27.0-33.0); MEAN CORPUSCULAR HGB CONC 33.7 g/dl (32.0-36.5); MONO # 0.5 10^3/uL (0.0-0.8); MONO % 4.6 % (0.0-5.0); NEUTROPHILS # 8.8 10^3/uL (1.8-7.7); NEUTROPHILS % 75.5 % (36.0-66.0); PLATELET COUNT, AUTOMATED 270 10^3/uL (150-450); RED BLOOD COUNT 3.63 10^6/uL (4.00-5.40); RED CELL DISTRIBUTION WIDTH 12.1 % (11.5-14.5); WHITE BLOOD COUNT 11.7 10^3/uL (4.0-10.0)
[2017-12-05 10:16] LABS: ALBUMIN 3.8 GM/DL (3.2-5.2); ALBUMIN/GLOBULIN RATIO 1.03 (1.00-1.93); ALKALINE PHOSPHATASE 105 U/L (45-117); ALT/SGPT 27 U/L (12-78); ANION GAP 8 MEQ/L (8-16); AST/SGOT 20 U/L (7-37); BILIRUBIN,TOTAL 0.5 MG/DL (0.2-1.0); BLOOD UREA NITROGEN 17 MG/DL (7-18); CALCIUM LEVEL 9.3 MG/DL (8.8-10.2); CARBON DIOXIDE LEVEL 23 MEQ/L (21-32); CHLORIDE LEVEL 112 MEQ/L (98-107); CREATININE FOR GFR 0.75 MG/DL (0.55-1.30); GLOMERULAR FILTRATION RATE > 60.0 (>45); GLUCOSE, FASTING 118 MG/DL (70-100); POTASSIUM SERUM 3.9 MEQ/L (3.5-5.1); SODIUM LEVEL 143 MEQ/L (136-145); TOTAL PROTEIN 7.5 GM/DL (6.4-8.2)
== END ==
DX: I63.9 Cerebral infarction, unspecified (principal); I10 Essential (primary) hypertension

== ENCOUNTER → 2017-12-30 | Outpatient (REF) | payer MEDICARE ==
[2017-12-30 11:54] LABS: BASO # 0.1 10^3/uL (0.0-0.2); BASO % 0.5 % (0.0-1.0); EOS # 0.1 10^3/uL (0.0-0.50); EOS % 1.1 % (0.0-3.0); HEMATOCRIT 38.2 % (36.0-47.0); HEMOGLOBIN 12.7 g/dl (12.0-15.5); IMMATURE GRANULOCYTE % 0.5 % (0-3.0); LYMPH # 1.6 10^3/uL (1.5-4.5); LYMPH % 14.2 % (24.0-44.0); MEAN CORPUSCULAR HEMOGLOBIN 34.4 pg (27.0-33.0); MEAN CORPUSCULAR HGB CONC 33.2 g/dl (32.0-36.5); MEAN CORPUSCULAR VOLUME 103.5 fl (80.0-96.0); MONO # 0.8 10^3/uL (0.0-0.8); NEUTROPHILS # 8.8 10^3/uL (1.8-7.7); NEUTROPHILS % 76.7 % (36.0-66.0); PLATELET COUNT, AUTOMATED 231 10^3/uL (150-450); RED BLOOD COUNT 3.69 10^6/uL (4.00-5.40); WHITE BLOOD COUNT 11.5 10^3/uL (4.0-10.0)
[2017-12-30 12:36] LABS: ALBUMIN 3.9 GM/DL (3.2-5.2); ALBUMIN/GLOBULIN RATIO 1.08 (1.00-1.93); ALKALINE PHOSPHATASE 121 U/L (45-117); ALT/SGPT 31 U/L (12-78); ANION GAP 9 MEQ/L (8-16); AST/SGOT 23 U/L (7-37); BILIRUBIN,TOTAL 0.3 MG/DL (0.2-1.0); BLOOD UREA NITROGEN 15 MG/DL (7-18); CALCIUM LEVEL 9.2 MG/DL (8.8-10.2); CARBON DIOXIDE LEVEL 24 MEQ/L (21-32); CHLORIDE LEVEL 109 MEQ/L (98-107); CREATININE FOR GFR 0.83 MG/DL (0.55-1.30); GLOMERULAR FILTRATION RATE > 60.0 (>45); GLUCOSE, FASTING 99 MG/DL (70-100); POTASSIUM SERUM 4.2 MEQ/L (3.5-5.1); SODIUM LEVEL 142 MEQ/L (136-145); TOTAL PROTEIN 7.5 GM/DL (6.4-8.2)
== END ==
DX: I10 Essential (primary) hypertension (principal)
CPT/HCPCS: 80053

== ENCOUNTER 2018-01-18 01:17 | Emergency (ER) | payer MEDICARE ==
[2018-01-18 02:46] LABS: BASO # 0.1 10^3/uL (0.0-0.2); EOS # 0.2 10^3/uL (0.0-0.50); EOS % 2.5 % (0.0-3.0); HEMATOCRIT 37.7 % (36.0-47.0); HEMOGLOBIN 12.6 g/dl (12.0-15.5); IMMATURE GRANULOCYTE % 0.2 % (0-3.0); LYMPH # 2.9 10^3/uL (1.5-4.5); LYMPH % 33.9 % (24.0-44.0); MEAN CORPUSCULAR HEMOGLOBIN 34.6 pg (27.0-33.0); MEAN CORPUSCULAR HGB CONC 33.4 g/dl (32.0-36.5); MEAN CORPUSCULAR VOLUME 103.6 fl (80.0-96.0); MONO # 0.7 10^3/uL (0.0-0.8); MONO % 8.3 % (0.0-5.0); NEUTROPHILS # 4.7 10^3/uL (1.8-7.7); NEUTROPHILS % 54.1 % (36.0-66.0); PLATELET COUNT, AUTOMATED 231 10^3/uL (150-450); RED BLOOD COUNT 3.64 10^6/uL (4.00-5.40); RED CELL DISTRIBUTION WIDTH 12.8 % (11.5-14.5); WHITE BLOOD COUNT 8.7 10^3/uL (4.0-10.0)
[2018-01-18 03:05] LABS: ANION GAP 7 MEQ/L (8-16); BLOOD UREA NITROGEN 21 MG/DL (7-18); CALCIUM LEVEL 9.2 MG/DL (8.8-10.2); CARBON DIOXIDE LEVEL 25 MEQ/L (21-32); CHLORIDE LEVEL 111 MEQ/L (98-107); CREATININE FOR GFR 0.72 MG/DL (0.55-1.30); GLOMERULAR FILTRATION RATE > 60.0 (>45); GLUCOSE, FASTING 111 MG/DL (70-100); POTASSIUM SERUM 4.3 MEQ/L (3.5-5.1); SODIUM LEVEL 143 MEQ/L (136-145)
[2018-01-18 03:07] LABS: APPEARANCE, URINE CLEAR (CLEAR); BACTERIA, URINE AUTO NEGATIVE (NEGATIVE); BILIRUBIN, URINE AUTO NEGATIVE (NEGATIVE); BLOOD, URINE BLOOD NEGATIVE (NEGATIVE); COLOR, URINE YELLOW (YELLOW); GLUCOSE, URINE (UA) AUTO NEGATIVE (NEGATIVE); KETONE, URINE AUTO NEGATIVE (NEGATIVE); LEUKOCYTE ESTERASE, URINE AUTO NEGATIVE (NEGATIVE); NITRITE, URINE AUTO NEGATIVE (NEGATIVE); PROTEIN, URINE AUTO NEGATIVE (NEGATIVE); RBC, URINE AUTO 1 /HPF (0-3); SPECIFIC GRAVITY URINE AUTO 1.016 (1.002-1.035); SQUAMOUS EPITHELIAL CELL UR AU 0 /HPF (0-6); UROBILINOGEN, URINE AUTO 0.2 mg/dL (0.0-2.0); WBC, URINE AUTO 1 /HPF (0-3)
[2018-01-18] MEDS: CORTISPORIN OTIC SOLN 10 ML BTL AD (04:04)
== END 2018-01-18 05:11 | disposition home or self-care (01) ==
LOC: M ED 01:17
DX: F51.4 Sleep terrors [night terrors] (principal); S00.401A Unspecified superficial injury of right ear, initial encounter; X58.XXXA Exposure to other specified factors, initial encounter; Y92.098 Other place in other non-institutional residence as the place of occurrence of the external cause; I69.354 Hemiplegia and hemiparesis following cerebral infarction affecting left non-dominant side; I10 Essential (primary) hypertension; E78.5 Hyperlipidemia, unspecified; J44.9 Chronic obstructive pulmonary disease, unspecified; Z85.3 Personal history of malignant neoplasm of breast; Z90.10 Acquired absence of unspecified breast and nipple; Z87.891 Personal history of nicotine dependence; Z88.8 Allergy status to other drugs, medicaments and biological substances; Z91.048 Other nonmedicinal substance allergy status; Z91.040 Latex allergy status; Z79.899 Other long term (current) drug therapy; Z79.02 Long term (current) use of antithrombotics/antiplatelets; Z79.82 Long term (current) use of aspirin
CPT/HCPCS: 71045

== ENCOUNTER 2018-04-17 12:22 | Outpatient (RCR) | payer MEDICARE | END 2018-05-10 | LOC: M OT 12:22 | DX: I69.364 Other paralytic syndrome following cerebral infarction affecting left non-dominant side (principal) | CPT/HCPCS: 97110 ==

== ENCOUNTER 2018-05-13 12:35 | Outpatient (RCR) | payer MEDICARE | END 2018-06-10 | LOC: M OT 12:35 | DX: I69.354 Hemiplegia and hemiparesis following cerebral infarction affecting left non-dominant side (principal) | CPT/HCPCS: 97110 ==

== ENCOUNTER → 2018-06-01 | Outpatient (REF) | payer MEDICARE ==
[2018-06-01 18:14] LABS: BASO # 0.1 10^3/uL (0.0-0.2); BASO % 0.8 % (0.0-1.0); EOS # 0.2 10^3/uL (0.0-0.50); EOS % 2.1 % (0.0-3.0); HEMATOCRIT 38.3 % (36.0-47.0); HEMOGLOBIN 12.6 g/dl (12.0-15.5); IMMATURE GRANULOCYTE % 0.2 % (0-3.0); LYMPH # 3.3 10^3/uL (1.5-4.5); LYMPH % 33.9 % (24.0-44.0); MEAN CORPUSCULAR HEMOGLOBIN 35.8 pg (27.0-33.0); MEAN CORPUSCULAR HGB CONC 32.9 g/dl (32.0-36.5); MEAN CORPUSCULAR VOLUME 108.8 fl (80.0-96.0); MONO # 0.7 10^3/uL (0.0-0.8); MONO % 6.8 % (0.0-5.0); NEUTROPHILS # 5.5 10^3/uL (1.8-7.7); NEUTROPHILS % 56.2 % (36.0-66.0); PLATELET COUNT, AUTOMATED 263 10^3/uL (150-450); RED BLOOD COUNT 3.52 10^6/uL (4.00-5.40); WHITE BLOOD COUNT 9.8 10^3/uL (4.0-10.0)
[2018-06-01 18:15] LABS: ALBUMIN 4.1 GM/DL (3.2-5.2); ALBUMIN/GLOBULIN RATIO 1.28 (1.00-1.93); ALKALINE PHOSPHATASE 106 U/L (45-117); ALT/SGPT 32 U/L (12-78); ANION GAP 7 MEQ/L (8-16); AST/SGOT 21 U/L (7-37); BILIRUBIN,TOTAL 0.3 MG/DL (0.2-1.0); BLOOD UREA NITROGEN 16 MG/DL (7-18); CALCIUM LEVEL 9.3 MG/DL (8.8-10.2); CARBON DIOXIDE LEVEL 28 MEQ/L (21-32); CHLORIDE LEVEL 105 MEQ/L (98-107); CHOLESTEROL LEVEL 123 MG/DL (<200); CHOLESTEROL RISK RATIO 3.514 (<5); FREE T4 1.19 NG/DL (0.76-1.46); GAMMA GLUTAMYLTRANSPEPTIDASE 61 U/L (5-55); GLOMERULAR FILTRATION RATE > 60.0 (>39); GLUCOSE, FASTING 91 MG/DL (70-100); HDL CHOLESTEROL 35 MG/DL (>40); LDL CHOLESTEROL 55 MG/DL (<100); NON-HDL-C 88 MG/DL; POTASSIUM SERUM 4.4 MEQ/L (3.5-5.1); SODIUM LEVEL 140 MEQ/L (136-145); TOTAL PROTEIN 7.3 GM/DL (6.4-8.2); TRIGLYCERIDES LEVEL 164 MG/DL (<150)
[2018-06-01 19:56] LABS: STABLE ALKPHOS 56 U/L
[2018-06-01 19:57] LABS: LABILE ALKPHOS 50 U/L
[2018-06-01 19:58] LABS: % LABILE ALKALINE PHOSPHATASE 47.2 %
== END ==
LOC: M SFHCCAPE 10:44
DX: R94.5 Abnormal results of liver function studies (principal); E78.5 Hyperlipidemia, unspecified; I10 Essential (primary) hypertension
CPT/HCPCS: 84443

== ENCOUNTER 2018-06-16 12:39 | Outpatient (RCR) | payer MEDICARE | END 2018-07-10 | LOC: M OT 12:39 | DX: I69.354 Hemiplegia and hemiparesis following cerebral infarction affecting left non-dominant side (principal) | CPT/HCPCS: 97110 ==

== ENCOUNTER → 2018-08-07 | Outpatient (CLI) | payer MEDICARE ==
[~2018-08-07] MED LIST changes: +AMLO5TAB6 PO; +ASPI325T PO; +ASPI81TA85 PO; +ATOR1TAB19 PO; +Artificial Tears OU; +Artificial Tears Op Oint OS; +CHOLTAB3 PO; +CLOP75TA2 PO; +COUM1TAB17 PO; +DIOV160T6 PO; -ISOVUE-370 76% 100ML VIAL (Q9967) As Ordered; +LOVE1INJ SC; +NYAM10003 TOP; +OMEG100011 PO; +SENN18TA PO; +VALS1TAB46 PO; +VITA500C24 PO
--- NOTE | 2018-08-07 15:40 | REP ---
Clinical: History of stroke with suspected carotid occlusion/stenosis . Technique: Cabrera scale and color Doppler evaluation using linear high frequency transducer Findings: Examination is severely limited due to atheromatous plaquing causing posterior shadowing. The right internal carotid artery is occluded just past the origin. The left carotid demonstrates significant narrowing to the carotid bulb and proximal external carotid artery. Doppler interrogation demonstrates biphasic wave patterns and moderate to significant areas of spectral broadening. The right vertebral artery demonstrates normal direction while the left vertebral artery is not visualized. RIGHT (cm/s) LEFT (cm/s) ICA peak systolic velocity 138.0 83.3 ICA diastolic velocity 50.2 26.9 ECA peak systolic velocity 126.5 105.0 CCA peak systolic velocity 41.6 72.6 ICA/CCA ratio 3.3 1.1 Impression: 1. Limited examination demonstrating extensive calcified atheromatous plaquing which limits evaluation. Wave patterns demonstrate biphasic wave forms with significant spectral broadening. 2. There is evidence for complete occlusion of the right internal carotid artery just past the proximal portion along with extensive areas of narrowing including left carotid bulb and proximal external carotid artery. More definitive evaluation using CT angiographic technique may be warranted. Electronically Signed by Doron Cline MD 08/07/2018 03:31 P
== END ==
LOC: M RAD 13:34
PROVIDERS: ATTEND Surgery Vascular Surgery
DX: I65.23 Occlusion and stenosis of bilateral carotid arteries (principal)

== ENCOUNTER → 2018-08-10 | Outpatient (RCR) | payer MEDICARE ==
[~2018-08-10] MED LIST changes: +AMLO5TAB4 PO; -AMLO5TAB6 PO
== END ==
LOC: M OT 07-14 13:03
PROVIDERS: ATTEND Physician Assistant
DX: I69.354 Hemiplegia and hemiparesis following cerebral infarction affecting left non-dominant side (principal)
CPT/HCPCS: 97110; G8984; G8985; G8986

== ENCOUNTER → 2019-05-24 | Outpatient (REF) | payer MEDICARE ==
[~2019-05-24] MED LIST changes: -AMLO5TAB4 PO; +AMLO5TAB6 PO; +ASPI-1 PO; -ASPI325T PO; -VALS1TAB46 PO; +VALS1TAB66 PO
[2019-05-24 16:20] LABS: BASO # 0.2 10^3/uL (0.0-0.2); BASO % 1.3 % (0.0-1.0); EOS # 0.4 10^3/uL (0.0-0.5); HEMATOCRIT 39.8 % (36.0-47.0); LYMPH # 2.8 10^3/uL (1.5-5.0); MEAN CORPUSCULAR HEMOGLOBIN 34.5 pg (27.0-33.0); MEAN CORPUSCULAR HGB CONC 32.7 g/dl (32.0-36.5); MEAN CORPUSCULAR VOLUME 105.6 fl (80.0-96.0); MONO # 0.8 10^3/uL (0.0-0.8); MONO % 7.5 % (0.0-5.0); NEUTROPHILS # 6.9 10^3/uL (1.5-8.5); NEUTROPHILS % 61.9 % (36.0-66.0); PLATELET COUNT, AUTOMATED 235 10^3/uL (150-450); RED BLOOD COUNT 3.77 10^6/uL (4.00-5.40); WHITE BLOOD COUNT 11.1 10^3/uL (4.0-10.0)
[2019-05-24 16:31] LABS: ALT/SGPT 21 U/L (12-78); BILIRUBIN,TOTAL 0.4 MG/DL (0.2-1.0); BLOOD UREA NITROGEN 20 MG/DL (7-18); CALCIUM LEVEL 9.1 MG/DL (8.8-10.2); CARBON DIOXIDE LEVEL 26 MEQ/L (21-32); CHLORIDE LEVEL 108 MEQ/L (98-107); CHOLESTEROL LEVEL 124 MG/DL (<200); CHOLESTEROL RISK RATIO 3.757 (<5); CREATININE FOR GFR 1.03 MG/DL (0.55-1.30); FOLATE > 24.0 NG/ML; GLOMERULAR FILTRATION RATE 56.2 (>39); GLUCOSE, FASTING 88 MG/DL (70-100); HDL CHOLESTEROL 33 MG/DL (>40); LDL CHOLESTEROL 57 MG/DL (<100); NON-HDL-C 91 MG/DL; POTASSIUM SERUM 4.7 MEQ/L (3.5-5.1); SODIUM LEVEL 141 MEQ/L (136-145); TOTAL PROTEIN 7.1 GM/DL (6.4-8.2); TRIGLYCERIDES LEVEL 169 MG/DL (<150); VITAMIN B12 LEVEL 1176 PG/ML
== END ==
LOC: M SFHCCAPE 09:03
PROVIDERS: ATTEND Physician Assistant
DX: D75.89 Other specified diseases of blood and blood-forming organs (principal); I10 Essential (primary) hypertension; Z23 Encounter for immunization
CPT/HCPCS: 36415; 80053; 80061; 82607; 82746; 84443; 85025; 90471; 90682; G0008

== ENCOUNTER 2019-11-07 04:03 | Inpatient (IN) | payer MEDICARE ==
[~2019-11-07] VITALS: Ht 162.6 cm; Wt 68.9 kg
[2019-11-07] MEDS ORDERED: MORPHINE 4 MG/ML 1ML VIAL/SYRINGE (J2270) As Ordered ONE (04:24)
[2019-11-07] MEDS ORDERED: ISOVUE-370 76% 100ML VIAL (Q9967) As Ordered ONE (04:27)
[2019-11-07] MEDS ORDERED: MORPHINE 4 MG/ML 1ML VIAL/SYRINGE (J2270) IV ONE (04:30)
[2019-11-07 04:43] LABS: BASO # 0.1 10^3/uL (0.0-0.2); EOS # 0.4 10^3/uL (0.0-0.5); EOS % 3.1 % (0.0-3.0); HEMATOCRIT 40.6 % (36.0-47.0); HEMOGLOBIN 13.2 g/dl (12.0-15.5); LYMPH # 3.1 10^3/uL (1.5-5.0); LYMPH % 24.7 % (24.0-44.0); MEAN CORPUSCULAR HEMOGLOBIN 34.8 pg (27.0-33.0); MEAN CORPUSCULAR HGB CONC 32.5 g/dl (32.0-36.5); MEAN CORPUSCULAR VOLUME 107.1 fl (80.0-96.0); MONO # 0.8 10^3/uL (0.0-0.8); MONO % 6.6 % (0.0-5.0); NEUTROPHILS % 64.3 % (36.0-66.0); PLATELET COUNT, AUTOMATED 227 10^3/uL (150-450); RED BLOOD COUNT 3.79 10^6/uL (4.00-5.40); WHITE BLOOD COUNT 12.4 10^3/uL (4.0-10.0)
[2019-11-07 04:47] LABS: INR 1.06; PROTHROMBIN TIME 13.5 SECONDS (11.8-14.0)
[2019-11-07 04:48] LABS: PARTIAL THROMBOPLASTIN TIME 34.6 SECONDS (25.0-38.4)
[2019-11-07 04:53] LABS: CALCIUM LEVEL 9.1 MG/DL (8.8-10.2); CREATININE FOR GFR 1.19 MG/DL (0.55-1.30); GLOMERULAR FILTRATION RATE 47.6 (>39)
[2019-11-07 04:56] LABS: CK-MB VALUE MASS 2.3 NG/ML (<3.6); MB/CK RELATIVE INDEX 2.88 (< OR =4); TROPONIN I 0.42 NG/ML (< 0.10)
--- NOTE | 2019-11-07 04:57 | REPVR ---
PROCEDURE INFORMATION: Exam: CT Head Without Contrast Exam date and time: 11/07/2019 4:42 AM Age: 69 years old Clinical indication: Altered mental status/memory loss; Confusion or disorientation; Additional info: [place] TECHNIQUE: Imaging protocol: Computed tomography of the head without contrast. Radiation optimization: All CT scans at this facility use at least one of these dose optimization techniques: automated exposure control; mA and/or kV adjustment per patient size (includes targeted exams where dose is matched to clinical indication); or iterative reconstruction. Other technique: STROKE PROTOCOL was implemented. COMPARISON: MA CT Head without contrast 09/03/2017 10:39 AM FINDINGS: Brain: There is a large area of right frontoparietal and temporal encephalomalacia with calcification of the overlying meninges. Ventricles: There is age-related cerebral atrophy with secondary ventricular dilatation. Bones/joints: Unremarkable. No acute fracture. Sinuses: Visualized sinuses are unremarkable. No fluid levels. Mastoid air cells: Visualized mastoid air cells are well aerated. Soft tissues: Unremarkable. IMPRESSION: 1. No CT evidence of acute intracranial hemorrhage, mass effect or midline shift. 2. Large right frontal, parietal and temporal chronic encephalomalacia-RIO and MCA territory. Given the extent of the encephalomalacia underlying acute ischemic process cannot be completely excluded. Correlate clinically. If indicated MRI with diffusion-weighted images may be obtained for further evaluation. ASSESSMENT: ASPECTS ([place] Stroke Program Early CT Score) is 10. Electronically signed by: Portillo Zuñiga On 11/07/2019 04:56:27 AM
[2019-11-07] MEDS: CLOPIDOGREL 75 MG TAB PO STA (05:02)
--- NOTE | 2019-11-07 05:11 | REPVR ---
PROCEDURE INFORMATION: Exam: CT Chest With Contrast Exam date and time: 11/07/2019 4:42 AM Age: 69 years old Clinical indication: Chest pain TECHNIQUE: Imaging protocol: Computed tomography of the chest with intravenous contrast. Radiation optimization: All CT scans at this facility use at least one of these dose optimization techniques: automated exposure control; mA and/or kV adjustment per patient size (includes targeted exams where dose is matched to clinical indication); or iterative reconstruction. Contrast material: ISOVUE 370; Contrast volume: 100 ml; Contrast route: IV; COMPARISON: [place] Chest, 1 view 01/18/2018 2:33 AM FINDINGS: Lungs: There is mild atelectatic changes in the lingula. There is a 2.1 cm bullae in the right lung base. Pleural space: Unremarkable. No pneumothorax. No pleural effusion. Heart: There is moderate coronary vascular calcifications. Aorta: There is [id number] aortic mural calcifications. Lymph nodes: Unremarkable. No enlarged lymph nodes. Bones/joints: There is diffuse bony osteopenia. Soft tissues: Unremarkable. IMPRESSION: 1. No focal lung consolidation or infiltrates. 2. 2.1 cm right lung base bullae. Electronically signed by: Portillo Zuñiga On 11/07/2019 05:10:48 AM
[2019-11-07] MEDS: ASPIRIN 325 MG TAB PO ONE (05:15)
[2019-11-07] MEDS ORDERED: NS 1,000 ML IV ONE (05:15)
--- NOTE | 2019-11-07 05:20 | REPVR ---
PROCEDURE INFORMATION: Exam: CT Abdomen And Pelvis With Contrast Exam date and time: 11/07/2019 4:42 AM Age: 69 years old Clinical indication: Abdominal pain; Generalized TECHNIQUE: Imaging protocol: Computed tomography of the abdomen and pelvis with intravenous contrast. Radiation optimization: All CT scans at this facility use at least one of these dose optimization techniques: automated exposure control; mA and/or kV adjustment per patient size (includes targeted exams where dose is matched to clinical indication); or iterative reconstruction. Contrast material: ISOVUE 370; Contrast volume: 100 ml; Contrast route: IV; COMPARISON: No relevant prior studies available. FINDINGS: Liver: Normal. No mass. Gallbladder and bile ducts: The gallbladder is moderately distended with lobulated dense material. Pancreas: Normal. No ductal dilation. Spleen: Normal. No splenomegaly. Adrenals: Normal. No mass. Kidneys and ureters: There is extensive bilateral multifocal renal cortical atrophy. There is no hydronephrosis. Stomach and bowel: Unremarkable. No obstruction. No mucosal thickening. Appendix: No evidence of appendicitis. Intraperitoneal space: Unremarkable. No free air. No significant fluid collection. Vasculature: There is severe aortic and iliac mural calcifications. The patient is status post surgical fixation left femoral neck fracture. Lymph nodes: Unremarkable. No enlarged lymph nodes. Bladder: The urinary bladder is contracted limiting its evaluation. Reproductive: Unremarkable as visualized. Bones/joints: There is diffuse bony osteopenia. There is lower lumbar spine facet arthrosis. There is grade 1 anterolisthesis L4 on L5. There is mild decrease of height of L4 vertebral body there is mild anterior wedging T11 and T10 vertebral bodies. Soft tissues: Unremarkable. IMPRESSION: 1. Lobulated mildly dense material within the gallbladder posteriorly could represent sludge or noncalcified gallstones however other etiologies cannot be excluded. Correlation with ultrasound is suggested. No CT findings of acute cholecystitis. 2. Extensive bilateral multifocal renal cortical atrophy likely the sequelae of recurrent infection/inflammation or vesicoureteral reflux. 3. Diffuse bony osteopenia with mild decrease of height of L4 vertebral body and mild anterior wedging of T11 and T10 vertebral body. These are likely chronic however age is indeterminate on this exam. Comparison to old study if available be helpful. Alternatively and if clinically indicated MRI may be obtained for further evaluation. Electronically signed by: Portillo Zuñiga On 11/07/2019 05:20:31 AM
[2019-11-07] MEDS ORDERED: VENTAER INH (05:21)
[2019-11-07] MEDS ORDERED: HYDR-3363 PO (05:21)
[2019-11-07] MEDS ORDERED: PLAV1TAB2 PO (05:24)
[2019-11-07] MEDS ORDERED: ATOR1TAB19 PO (05:24)
[2019-11-07] MEDS ORDERED: MOM 30ML SUSPENSION UDC PO PRN (06:00)
[2019-11-07] MEDS ORDERED: ACETAMINOPHEN TAB 650MG DOSE (2X325MG) PO PRN (06:00)
[2019-11-07] MEDS ORDERED: levETIRAcetam INJection 1,000 MG in D5W 100 ML IV ONE (06:00)
[2019-11-07] MEDS ORDERED: MAALOX 30 ML SUSP *UDC PO PRN (06:00)
[2019-11-07] MEDS ORDERED: HEPARIN SOD (PORCINE) 5000 UNITS/ML VIAL (J1644 PER 1000UNITS) SC SCH (06:00)
[2019-11-07] MEDS ORDERED: ARTIDRO OU (06:02)
[2019-11-07] MEDS ORDERED: ACET-861 PO (06:06)
[2019-11-07] MEDS ORDERED: MULTTAB24 PO (06:06)
[2019-11-07] MEDS ORDERED: ALL10TAB29 PO (06:06)
--- NOTE | 2019-11-07 06:08 | HPEPDOC ---
General Date of Admission Date of Service: Nov 07, 2019 Chief Complaint The patient is a 69-year-old female admitted with a reason for visit of S/S Possible Stroke vs seizure. Source: Patient, Family Exam Limitations: Clinical conditions Timing/Duration: This evening Severity: Moderate Associated Symptoms: Denies Symptoms History of Present Illness 69-year-old female with past medical history of CVA in 2018 with left-sided residual deficits, hypertension, hyperlipidemia, heavy smoker, presents to the ER for signs and symptoms of possible stroke and seizure. Majority of history wa s obtained by the at bedside. Patient does not recall the events of the past 8 hours. As per , patient was in her normal state of health earlier this evening. They went to bed at approximately 6 PM. Around 3 AM in the morning, noted that his was groaning. When he looked at her in bed, he noticed that she was frothing at the mouth and shaking. He states that this episode lasted approximately 15 minutes in his estimation. He called 911 immediately. During this trembling episode, patient was not responsive to his voice and did not follow commands. She usually wears a diaper, so he is unaware if she wet herself. There was no tongue biting noted. EMS records reveal that during transport, patient had another episode of seizure-like activity that lasted approximately 30 seconds to 1 minute, which resolved on its own. As per , patient has been doing relatively well at home. She is not had any recent fevers, chills, shortness of breath, chest pain, vomiting that he knows of. She is usually sitting in a chair and unable to ablate due to her condition, although he does try to get her up and walk a few feet when he can. 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 She is usually able to move her left leg against gravity As per and has been getting stronger recently. Upon ER evaluation, patient was found to be combative and flailing her arms and unable to follow commands. She was nonverbal at that time appeared to be confused. Lab work showed an elevated white count with no left shift and elevated cardiac markers to 0.4. EKG did reveal some J point elevations in the precordial leads that were not present before. CT head shows encephalomalacia that appears to be chronic, although more edema is present now than before. CT Chest/abd/pel was negative for any other acute issues. Hospitalist called for admission and further evaluation. Home Medications Scheduled Acetaminophen (Acetaminophen) 500 Mg Tablet, 1,000 MG PO TID, (Reported) Ascorbic Acid (Vitamin C) 500 Mg Cap, 500 MG PO DAILY, (Reported) Aspirin (Aspir 81) 81 Mg Tab, 81 MG PO DAILY, (Reported) Atorvastatin Calcium (Atorvastatin Calcium) 10 Mg Tablet, 10 MG PO DAILY, (Reported) Cetirizine HCl (Cetirizine HCl) 10 Mg Tablet, 10 MG PO DAILY, (Reported) Clopidogrel Bisulfate (Plavix) 75 Mg Tablet, 75 MG PO DAILY, (Reported) Glycerin/Propylene Glycol (Artificial Tears Drops) 15 Ml Drops, 2 DROP OU QID, (Reported) Mv,Calcium,Min/Iron/Folic/Vitk (Multi For Her Tablet) 1 Each Tablet, 1 TAB PO DAILY, (Reported) Valsartan (Valsartan) 80 Mg Tab, 80 MG PO TID, (Reported) Scheduled PRN Albuterol Sulfate (Ventolin Hfa) 18 Gm Hfa.aer.ad, 2 PUFF INH Q4H PRN for wheezing, (Reported) Hydroxyzine HCl (Hydroxyzine HCl) 25 Mg Tablet, 25 MG PO Q8H PRN for ANXIETY, (Reported) Allergies Coded Allergies: TAPE (Verified Allergy, Severe, BLISTERS, 01/18/18) latex (Verified Allergy, Intermediate, RASH BURN, 11/07/19) amlodipine (Verified Adverse Reaction, Unknown, LEG SWELLING, 11/07/19) Past Medical History Medical History CVA in 2018 with left-sided residual deficits, hypertension, hyperlipidemia Surgical History Hip fracture surgery, bilateral mastectomy Family History Father committed suicide Mother's family has extensive history of schizophrenia, psychiatric disorders Social History * Smoker: current smoker (patient currently smokes 2 packs per day for the past 40+ years) Alcohol: Denies Drugs: denies Recent Travel/Sick Contacts: Denies: Recent travel, Recent sick contacts Psychosocial History: No pertinent psych hx 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 She ambulates via wheelchair with the help of her . A-FIB/CHADSVASC A-FIB History Current/History of A-Fib/PAF?: No Review of Systems Constitutional: Denies: Chills, Fever, Malaise Eyes: Denies: Pain, Vision change ENT: Denies: Head Aches, Sore Throat Skin: Denies: Rash, Lesions Pulmonary: Denies: Dyspnea, Cough, Pleuritic Chest Pain Cardiovascular: Denies: Chest Pain, Palpitations, Orthopnea, Edema, Lt Headedness Gastrointestinal: Denies: Nausea, Vomiting, Abdominal Pain Genitourinary: Denies: Dysuria, Frequency Hematologic: Denies: Bruising Musculoskeletal: Reports: Back Pain, Shoulder Pain; Denies: Neck Pain, Arm Pain, Joint Pain, Muscle Pain Neurological: Reports: Confusion; Denies: Weakness, Numbness, Change in speech Psych: Reports: Mood Normal Physical Examination General Exam: Positive: Alert, Cooperative, Other (currently oriented to herself, time only. Patient is answering questions appropriately but requires multiple prompting. Chronically ill in appearance) Eye Exam: Positive: PERRLA, Conjunctiva & lids normal, EOMI; Negative: Sclera icteric ENT Exam: Positive: Atraumatic, Mucous membr. moist/pink, Pharynx Normal, Tongue Midline Neck Exam: Positive: Supple, +2 carotid pulse wo bruit; Negative: JVD, thyromegaly Chest Exam: Positive: Clear to auscultation, Diminished (at the bases) Heart Exam: Positive: Tachycardic, Regular Rhythm, Normal S1, Normal S2; Negative: Murmurs Abdomen Exam: Positive: Normal bowel sounds, Soft; Negative: Tenderness Extremity Exam: Positive: Normal pulses, Other (spastic paralysis of left lower extremity as well as left upper extremity); Negative: Edema Skin Exam: Positive: Nl turgor and temperature; Negative: Rash Neuro Exam: Positive: Normal Speech, Sensation Intact, Cranial Nerves 3-12 NL, Other (4 out of 5 strength in right lower extremity. Service Employee strength is full in right upper extremity. Left arm is flaccid paralysis. Left leg also displaying flaccid paralysis.); Negative: Normal Gait (wheelchair bound but can get up and walk with assistance) Psych Exam: Positive: Mental status NL, Other (appears confused but otherwise mood is within normal limits) Vital Signs Vital Signs Date Time Temp Pulse Resp B/P (MAP) Pulse Ox O2 Delivery O2 Flow Rate FiO2 11/07/19 04:58 98.6 110 13 107/75 97 Nasal Cannula 4.0 Laboratory Data Labs 24H Laboratory Tests 2 11/07/19 04:18: Immature Granulocyte % (Auto) 0.3, Neutrophils (%) (Auto) 64.3, Lymphocytes (%) (Auto) 24.7, Monocytes (%) (Auto) 6.6H, Eosinophils (%) (Auto) 3.1H, Basophils (%) (Auto) 1.0, Neutrophils # (Auto) 8.0, Lymphocytes # (Auto) 3.1, Monocytes # (Auto) 0.8, Eosinophils # (Auto) 0.4, Basophils # (Auto) 0.1, Nucleated Red B lood Cells % (auto) 0.0, Prothrombin Time 13.5, Prothromb Time International Ratio 1.06, Activated Partial Thromboplast Time 34.6, Anion Gap 7L, Glomerular Filtration Rate 47.6, Calcium Level 9.1, Total Creatine Kinase 80, Creatine Kinase MB 2.3, Creatine Kinase MB Relative Index 2.88, Troponin I 0.42H 11/07/19 04:52: Bedside Glucose (Misc Panel) 134H CBC/BMP Laboratory Tests 11/07/19 04:18 RAD Interpretation STUDY: Rad Actions: Report Reviewed, Films Reviewed RAD Interpretation: Other Result Comments: (patient had extensive encephalomalacia noted with a little bit more edema than prior study in 2018. Acute stroke cannot be excluded) STUDY: CT chest, abdomen, pelvis Rad Actions: Report Reviewed, Films Reviewed RAD Interpretation: Normal, Unchanged, Other Result Comments: (2.1 cm bullae noted in right lung base. Gallbladder sludge. Chronic general disease noted in spine) Assessment/Plan 69-year-old female with past medical history of stroke, hypertension, hyperlipidemia, presents with possible seizure versus TIA. Presentation appears consistent with seizure as witnessed by her and EMS. However, given the garbled speech, new weakness of the right lower extremity TIA also must be considered. Her symptoms have started to resolve as per the ER physician and states that she is a completely new person compared to what she was on presentation. Patient will need to be admitted for seizure and TIA workup at this time. Plan / VTE VTE Prophylaxis Ordered?: Yes Plan Plan Altered mental status secondary to seizure versus TIA Symptoms on presentation appeared consistent with possible seizure with frothing at the mouth and shaking. Patient has no known history of seizure disorder. CT h ead does show extensive encephalomalacia and changes from her prior stroke in 2018. Given the extent of that encephalomalacia, cannot exclude new stroke at this time based on current imaging. Her weakness and garbled speech are also resolving, which may be evidence of a TIA versus postictal state. Patient received 1 g Keppra load in the ER - Follow up MRI/MRA head and neck - Continue with aspirin and Plavix - Follow-up neurology consult - may need EEG? - Continue Keppra 500 mg twice a day for now and defer to neuro if needed further - Seizure precautions - Continue with telemetry monitoring - Echocardiogram - Follow-up ultrasound carotid Dopplers - patient has known carotid disease as per and had been following with vascular surgeon in the past - PT eval and treatment - Follow up lipid panel, A1c - Increase atorvastatin to 80 mg daily Elevated troponins Patient has elevated trops to 0.4 on presentation. Currently not complaining of any chest pain, palpitations. EKG does show some J point elevations which are new compared to baseline EKG 2 years prior. EKG changes can be seen in acute CVA and TIA as per literature. - Follow up troponins at 8 AM - if continuing to elevate, stat EKG and cardiac consult - Continue with telemetry - Follow up echo Hypertension BP was noted to be soft On admission, now normotensive. Noted to be on valsartan 80 mg 3 times a day -Change dosing to valsartan 80 mg twice daily Hyperlipidemia Established. Currently on statin at home. -Increase to 80 mg atorvastatin daily - Follow up lipid panel Undiagnosed likely COPD Patient currently mildly hypoxic on room air. Not on O2 at home. Patient has 80+ pack year smoking history and still actively smoking 2 packs per day at this time. Patient declined nicotine patch. - Supplemental oxygen as needed - Albuterol MDI for source of breath Activity: Bedrest, Advance Therapy: PT Diagnostics: Check Labs, Repeat Labs in AM, MRI Anticipated Discharge: Home, Home With Services Advanced Directives: MOLST Form is available, Do Not Resuscitate (DNR), Do Not Intubate (DNI) MAGGIE QUINTERO MD Nov 07, 2019 06:08
[2019-11-07] MEDS ORDERED: ALBUTEROL 90 MCG/ACT 8GM HFA INHALER INH PRN (06:30)
[2019-11-07] MEDS ORDERED: hydrOXYzine 25 MG TAB PO PRN (06:30)
--- NOTE | 2019-11-07 07:15 | REPVR ---
PROCEDURE INFORMATION: Exam: US Duplex Bilateral Extracranial Arteries Exam date and time: 11/07/2019 6:43 AM Age: 69 years old Clinical indication: Other: TIA; Additional info: TIA, known carotid vascular disease TECHNIQUE: Imaging protocol: Real-time Duplex ultrasound scan of the bilateral carotid and vertebral arteries combining pritchett scale, color Doppler and spectral waveform analysis. Bilateral exam. COMPARISON: CT Head without contrast 11/07/2019 4:27 AM FINDINGS: Right common carotid artery: Mural calcified plaque seen in the right common carotid artery. Relatively low peak systolic velocities seen in the right CCA. Peak systolic velocities in the right CCA measures as follow: 28.4 centimeter/second in the proximal right CCA. 23.5 centimeter/second in the mid right CCA. 25.2 centimeter/second in the distal right CCA. Right internal carotid artery: There is a large calcified plaque in the right carotid bulb with significant increase in peak systolic velocities measuring up to 270 centimeter/second. Increased velocity seen in the proximal right ICA with peak systolic velocity of 198 centimeter/second. Peak systolic velocity measures 48.7 centimeter/second in the mid right ICA. Right ICA/CCA ratio: Significantly increased at 6.97. Right external carotid artery: Not visualized. Right vertebral artery: Not visualized Left common carotid artery: Mural calcified plaque seen in the left common carotid artery. Peak systolic velocities in the left CCA measures as follow: 64.9 centimeter/second in the proximal left CCA. 51.6 centimeter/second in the mid left CCA. 62.4 centimeter/second in the distal left CCA. Left internal carotid artery: Peak systolic velocity measures 54.1 centimeter/second in the distal left ICA. Peak systolic velocity measures 42 centimeter/second in the left carotid bulb. Peak systolic velocity measures 46.1 centimeter/second in the proximal left ICA. Peak systolic velocity measures 79.6 centimeter/second in the mid left ICA. Peak systolic velocity measures 51.1 centimeter/second in the distal left ICA. Left ICA/CCA ratio: Within normal limits. Left external carotid artery: Peak systolic velocity measures 65.2 centimeter/second in the left ECA with findings suggestive of less than 50% stenosis Left vertebral artery: Not visualized. IMPRESSION: 1. Right CCA and ICA calcified plaques with significant increased in velocities in the right carotid bulb and proximal right ICA suggestive of severe more than 70% stenosis. 2. Left CCA and ICA calcified plaques with Doppler findings suggestive of less than 50% stenosis. 3. Right and left vertebral arteries not visualized. REFERENCES: Carotid Stenosis Reference using SRU criteria: Mild: less than 50% stenosis. ICA PSV is less than 125 cm/second and plaque or intimal thickening is visible. Moderate: 50-69% stenosis. ICA PSV is 125 to 230 cm/second and plaque is visible. Severe: 70-94% stenosis. ICA PSV is more than 230 cm/second and visible plaque and lumen narrowing are seen. Near occlusion: 95-99% stenosis. ICA PSV is variable and significant plaque and luminal narrowing are seen. Occluded: 100% stenosis. No flow identified. Electronically signed by: Portillo Zuñiga On 11/07/2019 07:14:24 AM
[2019-11-07 08:24] LABS: CHOLESTEROL RISK RATIO 3.096 (<5)
[2019-11-07 08:45] LABS: CK-MB VALUE MASS 11.7 NG/ML (<3.6); MB/CK RELATIVE INDEX 7.36 (< OR =4); TROPONIN I 4.87 NG/ML (< 0.10)
[2019-11-07] MEDS ORDERED: VALSARTAN 80 MG TAB (DIOVAN) PO SCH (09:00)
[2019-11-07 09:32] LABS: HEMOGLOBIN A1c 5.9 %
[2019-11-07 10:00] VITALS: BP 121/74
--- NOTE | 2019-11-07 11:05 | REPVR ---
PROCEDURE INFORMATION: Exam: MR Head Without Contrast Exam date and time: 11/07/2019 10:22 AM Age: 69 years old Clinical indication: Alteration of consciousness; Transient alteration of awareness; Patient HX: HX of CVA, AMS TECHNIQUE: Imaging protocol: MR of the head without contrast. COMPARISON: MRI-Brain without Contrast 09/02/2017 8:16 PM FINDINGS: Brain: There is moderate atrophy and chronic white matter microangiopathic changes. There is extensive encephalomalacia of the right middle cerebral artery territory involving cortical tissue more extensive than the ischemic changes limited to the right basal ganglia seen on comparison MRI. There is no evidence of diffusion restriction at this time to suggest a new infarct, however. There is mild laminar necrosis pattern of the sylvian formation posteriorly on sagittal image 21 and of the superior right frontal lobe on axial image 801:22. These do not suggest significant hemorrhage. Ventricles: There is compensatory ventricular dilation. Bones/joints: Unremarkable. Soft tissues: Unremarkable. Sinuses: Normal as visualized. No acute sinusitis. Mastoid air cells: Normal as visualized. No mastoid effusion. Orbits: Unremarkable. Other vasculature: Normal vascular flow voids are present. Prominent origin of the left posterior cerebral artery and a large right posterior communicating artery are again noted. IMPRESSION: 1. There is extensive encephalomalacia of the right middle cerebral artery territory involving cortical tissue more extensive than the ischemic changes limited to the right basal ganglia seen on comparison MRI. There is no evidence of diffusion restriction at this time to suggest a new infarct, however. 2. There is mild laminar necrosis pattern of the sylvian formation posteriorly on sagittal image 21 and of the superior right frontal lobe on axial image 801:22. These do not suggest significant hemorrhage. Electronically signed by: Yuri Barakat On 11/07/2019 11:05:35 AM
--- NOTE | 2019-11-07 11:13 | REPVR ---
PROCEDURE INFORMATION: Exam: MR Angiogram Head Without Contrast, Arteries Exam date and time: 11/07/2019 10:22 AM Age: 69 years old Clinical indication: Cognitive deficit; Altered mental status; Patient HX: HX of CVA, AMS best images due to pts inability to lie still or understand instructions TECHNIQUE: Imaging protocol: MR angiogram head without contrast. Exam focused on the arteries. 3D rendering: MIP and/or 3D reconstructed images were created by the technologist. COMPARISON: 1. MRA BRAIN W/O CONTRAST 09/02/2017 8:09 PM 2. COMPARISON MORE: CT ANGIO HEAD 10/21/2017 8:42:39 AM FINDINGS: Right internal carotid artery: There is no flow in the right internal carotid artery at the base of the skull. There is flow detected in the distal cavernous segment which may reflect collateral filling from the right ophthalmic artery suggested on previous CTA. It is also possible that the large right posterior communicating artery is providing supply from the basilar circulation via the right P1. Right anterior cerebral artery: No occlusion or significant stenosis. No aneurysm. Right middle cerebral artery: There is a very small right middle cerebral artery tapering immediately following the internal carotid origin similar to findings on the previous study. Some flow appeared to have been re-established by the time of the CT angiogram. There is very poor distal signal in the right MCA branches. Right posterior cerebral artery: There is codominant origin of the right posterior cerebral artery from the internal carotid via a large posterior communicator and from the P1 segment. Right vertebral artery: No occlusion or significant stenosis. No aneurysm. Left internal carotid artery: Intracranial segment is patent with no significant stenosis. No aneurysm. Left anterior cerebral artery: No occlusion or significant stenosis. No aneurysm. Left middle cerebral artery: No occlusion or significant stenosis. No aneurysm. Left posterior cerebral artery: There is origin of the left posterior cerebral artery. Left vertebral artery: No occlusion or significant stenosis. No aneurysm. Basilar artery: No occlusion or significant stenosis. No aneurysm. IMPRESSION: 1. There is origin of the left posterior cerebral artery. 2. There is codominant origin of the right posterior cerebral artery from the internal carotid via a large posterior communicator and from the P1 segment. 3. There is no flow in the right internal carotid artery at the base of the skull. There is flow detected in the distal cavernous segment which may reflect collateral filling from the right ophthalmic artery suggested on previous CTA. It is also possible that the large right posterior communicating artery is providing supply from the basilar circulation via the right P1. 4. There is a very small right middle cerebral artery tapering immediately following the internal carotid origin similar to findings on the previous study. Some flow appeared to have been re-established by the time of the CT angiogram. There is very poor distal signal in the right MCA branches. Electronically signed by: Yuri Barakat On 11/07/2019 11:13:14 AM
[2019-11-07] MEDS: ATORVASTATIN 20 MG TAB PO SCH (11:40)
[2019-11-07] MEDS: ASPIRIN 81 MG ENTERIC TAB PO SCH (11:40)
[2019-11-07] MEDS: CLOPIDOGREL 75 MG TAB PO SCH (11:40)
[2019-11-07] MEDS: DOCUSATE SODIUM 100 MG CAP PO SCH ×2 (11:40→20:46)
[2019-11-07] MEDS: levETIRAcetam 250MG TABLET (KEPPRA) PO SCH ×2 (11:42→20:46)
[2019-11-07 12:00] VITALS: BP 117/73
[2019-11-07] MEDS ORDERED: HEPARIN SOD (PORCINE) 5000 UNITS/ML VIAL (J1644 PER 1000UNITS) IV PRN (12:30)
[2019-11-07 13:03] LABS: CK-MB VALUE MASS 17.2 NG/ML (<3.6); MB/CK RELATIVE INDEX 7.71 (< OR =4); TROPONIN I 7.42 NG/ML (< 0.10)
[2019-11-07] MEDS: HEPARIN DRIP 25,000 UNITS in IV 1 EA IV SCH (13:13)
[2019-11-07 13:15] VITALS: BP 118/62
[2019-11-07] MEDS: CARVedilol 3.125 MG TAB PO SCH ×2 (13:18→20:46)
--- NOTE | 2019-11-07 13:30 | ECHO ---
DATE OF SERVICE: 11/07/2019 REFERRING PROVIDER: Dr. Michel REASON FOR THE STUDY: Abnormal troponin, [id number] elevation myocardial infarction (NSTEMI). PATIENT LOCATION: Room 3224. 2D MEASUREMENTS: IVS: 1.3 cm LVPW: 1.0 cm LV: 3.7 cm LA: 3.7 cm Aorta: 2.9 cm IVC: 1.8 cm DOPPLER MEASUREMENTS: Peak velocity across the aortic valve: 1.0 m/s Peak velocity across the left ventricular outflow tract (LVOT): 0.8 m/s Mitral E: 0.4 Mitral A: 1.2 with a ratio of 0.7 Maximum tricuspid valve velocity: 2.8 m/s 2D COMMENTS: 1. Normal left ventricular size and wall thickness with a severely depressed global left ventricular systolic function. The left ventricle from the base to the apex was akinetic. On the basal portion was judy, and it did not seem to be hyperkinetic. The estimated global left ventricular systolic function is 25% to 30%. A sigmoid appearance of the basal ventricular septum also was noted. 2. Subjectively, the left atrium appeared to be mildly enlarged. The right atrium also suggested it might be mildly enlarged. Normal right ventricle. 3. The atrial septum appeared to be normal without evidence of defect or shunt. 4. Normal aortic root. 5. Trace pericardial effusion noted anteriorly, no evidence of cardiac tamponade. 6. Mildly calcified aortic valve with normal leaflet excursion. Mildly calcified mitral annulus with normal anterior mitral valve leaflet motion. Normal tricuspid valve. The pulmonic valve and proximal pulmonary artery branches were not well visualized. 7. The inferior vena cava was normal in size, central venous pressure is most likely normal. DOPPLER: It detects mild aortic regurgitation, mild mitral regurgitation, moderate tricuspid regurgitation. The calculated pulmonary artery systolic pressure varies between 30-40 mmHg. Abnormal relaxation pattern was noted across the mitral valve leaflets and mitral valve annulus consistent with features of left ventricular diastolic dysfunction. IMPRESSION: 1. Severe left ventricular systolic dysfunction with regional wall motion abnormalities consistent with apical ballooning syndrome/Takotsubo syndrome. 2. Mild mitral regurgitation with mitral annulus calcification. The left atrium subjectively appeared to be mildly enlarged. 3. Mild tricuspid regurgitation with mild pulmonary hypertension. 4. Aortic valve sclerosis with mild aortic regurgitation but no aortic stenosis. 5. Trace pericardial effusion. 6. A sigmoid appearance of the basal ventricular septum was noted, a benign finding. 7. This was compared with echocardiogram in August of 2017; and at that time, left ventricular ejection fraction (LVEF) was normal, there was no regional wall motion abnormalities. Pulmonary artery pressure also was calculated to be higher. MTDD
[2019-11-07 16:00] VITALS: BP 104/60
--- NOTE | 2019-11-07 16:11 | ECGEPIP ---
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
--- NOTE | 2019-11-07 18:39 | IPNPDOC ---
Date Seen The patient was seen on 11/07/19. Progress Note Patient with significantly elevated troponin, patient asymptomatic, stat echo shows decreased EF and wall motion abnormalities concerning for Takotsubo Cardiomyopathy, has significant risk factors for ACS. Case was discussed with Dr. Rider who advised optimal medical management at this time and does not think immediate transfer for cardiac cath is necessary. Case was discussed with patient's in detail over the phone who also elected against transferring her for cardiac cath and wishes to pursue medical management at this time. Patient is already on aspirin, statin and Plavix, heparin drip was added along with low-dose beta gloria. Patient is full code as per , discussed in person earlier today. VS, I&O, 24H, Fishbone Vital Signs/I&O Vital Signs Date Time Temp Pulse Resp B/P (MAP) Pulse Ox O2 Delivery O2 Flow Rate FiO2 11/07/19 16:00 98.1 78 16 104/60 (75) 99 Nasal Cannula 2.0 I&O- Last 24 Hours up to 6 AM 11/07/19 06:00 Intake Total 1000 ml Balance 1000 ml Laboratory Data 24H LABS Laboratory Tests 2 11/07/19 04:18: Immature Granulocyte % (Auto) 0.3, Neutrophils (%) (Auto) 64.3, Lymphocytes (%) (Auto) 24.7, Monocytes (%) (Auto) 6.6H, Eosinophils (%) (Auto) 3.1H, Basophils (%) (Auto) 1.0, Neutrophils # (Auto) 8.0, Lymphocytes # (Auto) 3.1, Monocytes # (Auto) 0.8, Eosinophils # (Auto) 0.4, Basophils # (Auto) 0.1, Nucleated Red Blood Cells % (auto) 0.0, Prothrombin Time 13.5, Prothromb Time International R atio 1.06, Activated Partial Thromboplast Time 34.6, Anion Gap 7L, Glomerular Filtration Rate 47.6, Calcium Level 9.1, Total Creatine Kinase 80, Creatine Kinase MB 2.3, Creatine Kinase MB Relative Index 2.88, Troponin I 0.42H 11/07/19 04:52: Bedside Glucose (Misc Panel) 134H 11/07/19 07:55: Total Creatine Kinase 159#, Creatine Kinase MB 11.7H, Creatine Kinase MB Relative Index 7.36H, Troponin I 4.87#*H, Estimated Mean Plasma Glucose 123H, Hemoglobin A1c 5.9, Triglycerides Level 48, Total Cholesterol 96, LDL Cholesterol 55, Non-HDL Cholesterol (LDL + VLDL) 65, Total HDL Cholesterol 31L, Cholesterol/HDL Ratio 3.096 11/07/19 11:54: Total Creatine Kinase 223H, Creatine Kinase MB 17.2H, Creatine Kinase MB Relative Index 7.71H, Troponin I 7.42#*H 11/07/19 12:41: Activated Partial Thromboplast Time 33.9 11/07/19 15:56: Troponin I 8.71*H CBC/BMP Laboratory Tests 11/07/19 04:18 ROSEMARY ALTAMIRANO MD Nov 07, 2019 18:39
[2019-11-07 20:00] VITALS: BP 106/70
[2019-11-07] MEDS: VALSARTAN 40MG TABLET (DIOVAN) PO SCH (20:45)
[2019-11-08] VITALS (7 sets, daily range): BP systolic 89–132; BP diastolic 50–72
[2019-11-08 04:49] LABS: HEMATOCRIT 37.6 % (36.0-47.0); HEMOGLOBIN 12.2 g/dl (12.0-15.5); MEAN CORPUSCULAR HEMOGLOBIN 34.5 pg (27.0-33.0); MEAN CORPUSCULAR HGB CONC 32.4 g/dl (32.0-36.5); MEAN CORPUSCULAR VOLUME 106.2 fl (80.0-96.0); PLATELET COUNT, AUTOMATED 193 10^3/uL (150-450); RED BLOOD COUNT 3.54 10^6/uL (4.00-5.40); WHITE BLOOD COUNT 12.7 10^3/uL (4.0-10.0)
[2019-11-08 05:47] LABS: ALT/SGPT 20 U/L (12-78); BLOOD UREA NITROGEN 18 MG/DL (7-18); CALCIUM LEVEL 9.1 MG/DL (8.8-10.2); CARBON DIOXIDE LEVEL 25 MEQ/L (21-32); CHLORIDE LEVEL 108 MEQ/L (98-107); CREATININE FOR GFR 0.96 MG/DL (0.55-1.30); GLOMERULAR FILTRATION RATE > 60.0 (>39); GLUCOSE, FASTING 109 MG/DL (70-100); POTASSIUM SERUM 4.2 MEQ/L (3.5-5.1); SODIUM LEVEL 142 MEQ/L (136-145)
[2019-11-08 05:48] LABS: ALBUMIN 3.7 GM/DL (3.2-5.2); BILIRUBIN,TOTAL 0.6 MG/DL (0.2-1.0)
--- NOTE | 2019-11-08 07:26 | CR ---
DATE OF CONSULTATION: 11/07/2019 REFERRING PROVIDER: Dr. Michel REASON FOR CONSULTATION: Abnormal serum troponin. HISTORY OF PRESENTING ILLNESS: 69-year-old woman with a history of cerebrovascular accident (CVA) in 2018 with residual left-sided weakness that was described by the nursing staff to be more in the left upper extremity prior to coming to the office, hypertension, hyperlipidemia, active and heavy smoker, has been doing well and was not having any complaints according to the chart, the nursing staff and what the has reported. In the backpackers manager hours today she started groaning, reported by the and he noticed that she had frothing at the mouth and she was shaking. This lasted about 15 minutes and EMS was called. At that time, she was not responsive. According to the EMS records, while being transported to the emergency room (ER), she had another episode of seizure-like activity that lasted about 30 seconds to 1 minute and resolved on its own. As mentioned above, prior to the hospitalization and earlier this week the patient was doing fine without any complaints of chest pain, shortness of breath, pedal edema, orthopnea, cough, fever, chills, or bleeding. She had that CVA in 2018 and at that time she had an echocardiogram that revealed a normal left ventricular ejection fraction (LVEF). Her strength in the left lower extremity has improved significantly according to the when compared to the left upper extremity. There is no report of bleeding. There is no diarrhea or vomiting. There is no loss of sphincter control but the patient does wear diapers/Depends. When she arrived at the ER, she was nonverbal at times and confused. When I saw her, she appeared to be a little confused but she was cooperative. There is no report of chest pain and there was no orthopnea. No arrhythmias noted on tele, but with isolated PVCs. She has lost strength in the left lower extremity when compared to prior hospitalization. A CT scan of the head shows encephalomalacia that appears to be chronic but with more edema noted. CT of the chest, abdomen, pelvis was negative for any acute disease process. Neuro consult is pending. PAST MEDICAL HISTORY: As mentioned above is positive for hypertension, hyperlipidemia, and CVA in 2018 with left-sided weakness, arthritis. PAST SURGICAL HISTORY: Is positive for hip fracture surgery and bilateral mastectomy. MEDICATIONS AT HOME: - aspirin 81 mg by mouth daily - atorvastatin 10 mg by mouth daily - cetirizine 10 mg by mouth daily - Plavix 75 mg by mouth daily - valsartan 80 mg by mouth three times a day - vitamin C 100 mg by mouth daily - Tylenol 1,000 mg by mouth three times a day as needed - artificial tears - albuterol sulfate as needed for wheezing every 4 hours two puffs - hydroxyzine 25 mg by mouth every 8 hours as needed for anxiety FAMILY HISTORY: Is positive for psychiatric disorders in her mother's family. Her father committed suicide. SOCIAL HISTORY: The patient lives with her and she smokes heavily daily, about two packs a day of cigarettes. There is no report of EtOH abuse or illicit drugs. She ambulates with a wheelchair mainly with the help of her . 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 ALLERGIES: TAPE, AMLODIPINE, and LATEX. The patient prior to that hospitalization has a DNR and DNI status but she now she is a FULL CODE. PHYSICAL EXAMINATION: The patient is alert and oriented, in no acute distress and very present. Her blood pressure when I saw her was 118/62 with a pulse of 82, respiration 18 and a maximum temperature was 98.4 degrees Fahrenheit with an oxygen saturation of 98% on 2 liters cannula. Examination of the head: Atraumatic. Neck is supple. The lungs did not reveal any wheezing or crackles on this auscultation. The heart examination revealed regular heart sounds without gallops. The point of maximum impulse (PMI) is slightly displaced inferiorly and laterally. There is no rub. There is a systolic murmur grade 1-2/6 at the lower sternal border without any significant radiation. Abdomen is soft. Extremities revealed no pedal edema. Peripheral pulses, dorsalis pedis were palpated and +1 to +2. Neurological examination revealed mild left-sided weakness. LABORATORY DATA: CBC done today revealed WBC of 12.4, hemoglobin 13.2, hematocrit 40.6 and platelet 127,000. BMP revealed a sodium of 144, potassium 5.0, chloride 113, CO2 24, BUN 22, creatinine 1.19, GFR 47.6 fasting glucose 136 and calcium 9.1. Serum troponin was 0.42, 4.87, 7.42, and 8.71. Calcium level was 9.1. Lipid profile revealed a cholesterol of 96, LDL 65, HDL 31 triglycerides 48 and total cholesterol shows ratio of 3.09. PT on admission was 13.5 with an INR 1.06 and a PTT of 34.6. Head CT revealed no evidence of acute intracranial bleed, mass effect or midline shift. There is a large right frontal, parietal, and temporal chronic encephalomalacia in the RIO and MCA territory. MRI was recommended. CT of the chest done earlier today revealed no focal lung consolidation or infiltrates. There was 2.1 cm right lung base bullae. CT of the abdomen and pelvis revealed no CT evidence of acute cholecystitis. There was extensive bilateral multifocal renal cortical atrophy, diffuse bony osteopenia. No acute disease process. MRI of the brain without contrast revealed extensive encephalomalacia of the right middle cerebral artery involving cortical tissue that is more extensive, but no evidence to support the new infarct. No bleeding. MRA of the head is revealed no flow in the right internal carotid artery at the base of the skull and a very small right middle cerebral artery similar to findings on previous study. Ultrasound of the carotid arteries revealed findings consistent with severe stenosis in the right ICA and a less than 50% stenosis in the left ICA. Vertebral flow were not visualized. EKG done in the ER 11/07/2019 at 04:10:00 revealed sinus tachycardia at 110 beats per minute, isolated PVCs, low voltage QRS complexes in the chest leads and ST elevation noted in the anterolateral leads but no evidence of reciprocal changes. There are Q-waves from V1-V5/V6. Compared to EKG on 09/02/2017, findings are new. Repeat EKG done today at 10:09:07 did not reveal any significant changes but a slower heart rate at 90 beats per minute. Echocardiogram done today 11/07/2019 revealed a severely depressed global left ventricular systolic function and regional wall motion abnormalities consistent with apical ballooning syndrome. This was compared with an echocardiogram in August 2017 and at that time LVEF was normal. IMPRESSION: 1. Abnormal serum troponin in this 69-year-old woman with history of hypertension, hyperlipidemia, and peripheral artery disease. Had one episode of syncope versus seizures in the backpackers manager hours while in bed and was found to have worsening of her left-sided weakness. Her labs revealed abnormal serum troponin that may be related to a [id number] myocardial infarction (NSTEMI). Her EKG is abnormal but no reciprocal change is noted. She also denies any chest pain. The EKG findings noted above are new when compared to 2018. Prior to coming to the hospital, she has been asymptomatic without any chest pain and while in the hospital, she has not been having any chest pain. She was not in any acute distress when I saw. Her telemetry revealed normal sinus rhythm with isolated PVCs. Case was discussed with the hospitalist. She will be treated with the hospitalist. She will be treated for a NSTEMI but she probably has apical ballooning syndrome due to an cerebral event. She was on losartan and we have decreased it and was started on carvedilol. Will continue with the dual antiplatelet therapy and the IV heparin. She will be managed conservatively. Neurology input is pending. Her hospitalist as discussed with her and he is in agreement with the management. We will repeat the EKG this evening. 2. Hypertension, under control. 3. History of hyperlipidemia, on a statin and this is being addressed and under control. Currently on high dose of the statin therapy. 4. History of cerebrovascular accident (CVA) with left-sided weakness and severe disease in the right coronary artery system. It was a pleasure to participate the care of Mrs. Dianna Guzman for her underlying cardiac condition. I will continue to monitor along with you. I will ask Dr. Carrillo to see her tomorrow, 11/08/2019. We will probably get her started tomorrow on physical therapy. Once again, she appears to be stable and we will continue current management. ELISE
[2019-11-08] MEDS: VALSARTAN 40MG TABLET (DIOVAN) PO SCH ×2 (08:41→20:28)
[2019-11-08] MEDS: ASPIRIN 81 MG ENTERIC TAB PO SCH (08:41)
[2019-11-08] MEDS: CLOPIDOGREL 75 MG TAB PO SCH (08:42)
[2019-11-08] MEDS: levETIRAcetam 250MG TABLET (KEPPRA) PO SCH ×2 (08:42→20:15)
[2019-11-08] MEDS: CARVedilol 3.125 MG TAB PO SCH ×2 (08:42→20:28)
[2019-11-08] MEDS: DOCUSATE SODIUM 100 MG CAP PO SCH ×2 (08:43→20:15)
[2019-11-08] MEDS: ATORVASTATIN 20 MG TAB PO SCH (08:48)
--- NOTE | 2019-11-08 11:22 | IPN ---
DATE OF SERVICE: 11/08/2019 SUBJECTIVE: Ms. Guzman was seen and examined this morning during bedside rounds. She continues not to appropriately answer questions, which is at baseline relatively. She has a child-like demeanor during exam. She denies having any shortness of breath, trouble breathing, nausea, vomiting or diarrhea. She does believe she is currently in her kitchen and the day is the 14th, unable to tell me what month or what year. There were no overnight nursing events were reported. PHYSICAL EXAMINATION: Vitals: Temperature 98.0, pulse 86, respirations 20, blood pressure 132/72, MAP 92, pulse oximetry 95% on room air. Ins and Outs: Not accurate as the output total was only 0 mL since admission. General: This is a 69-year-old female who currently does not appear in any acute distress, not alert and oriented, but currently is at baseline due to the fact that the patient is status post stroke. No jugular venous distention (JVD) noted. Lungs: Bibasilar crackles at the bases, but no audible wheezing or rales appreciated. Clear to auscultate in the upper lobes. Cardiac: Regular rate and rhythm. Systolic 1/6. Systolic murmur at the right intercostal space. No radiation. Abdomen: Soft. Nontender. Extremities: No lower extremity edema. Neurologic: Not appropriately conversing. No Broca aphasia noted. Alert and oriented to person only, not place or time. Muscular strength exam not done. LABORATORIES: Hematology: WBC 12.7, hemoglobin 12.2, hematocrit 37.6, platelets 193. Chemistries: Sodium 142, potassium 4.2, chloride 108, carbon dioxide 25, anion gap 9, BUN 18, creatinine 0.96, GFR greater than 60, fasting glucose 109. A1c 5.9. Calcium 9.1. Total bilirubin 0.6. Troponin peaked at 8.71 and is down trending to 6.28. MEDICATIONS (Cardiac): - Valsartan 40 mg twice a day - aspirin 81 mg daily - heparin drip - Plavix 75 mg daily - atorvastatin 80 mg daily - carvedilol 3.125 mg every 12 hours IMPRESSIONS: 1. 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 2. Elevated troponins, peaked at 8, currently down trending, possibly secondary to apical ballooning syndrome. 3. Seizures. 4. CVAs with current left sided weakness. 5. History of hyperlipidemia. 6. Hypertension. PLAN: From a cardiac standpoint, she is currently stable. We will not change any of her cardiac medications, will continue as prescribed. Continue with the dual antiplatelet therapy as well as the IV heparin drip and monitor for bleeds. The angiotensin receptor gloria (ARB) and beta gloria dose is appropriate as well, continue as prescribed. Per family's wish, we will continue with medical management. They do not want to be transferred. Ultimately, our best recommendation because of the peak troponin and even though we do see the apical ballooning, we feel it would be best for the patient to get an arteriogram to see how significant her coronary artery disease is. At this current time though she is currently stable, so will continue as prescribed. No changes will be made in her hyperlipidemia or hypertension medications. Continue seizure meds as prescribed for her current CVA due to recent surgery. Will continue to follow along with the patient while she is admitted. Addendum MD Juanito: Elderly lady with CVA. ECHO is typical for takotsubo cardiomyopathy but ischemic etiology is certainly possible. BP is soft complicating management. Will try to introduce BB if possible. Will limit other BP reducing medications if necessary. MTDD
--- NOTE | 2019-11-08 13:48 | REP ---
CT BRAIN WITHOUT CONTRAST: HISTORY: Slurred speech. Comparison CT study is from the previous day, 11/07/2019. CT FINDINGS: Digital preliminary professional sports scout radiograph is unremarkable and unchanged. The bony calvarium remains intact. There is heavy vascular calcification in the carotid siphons bilaterally. Visualized paranasal sinuses are unremarkable. There is an extensive pattern of old encephalomalacia in the distribution of the right middle cerebral artery unchanged from the previous day's CT study. There is no evidence of intracranial hemorrhage. No new cortical infarction is appreciated. There is diffuse atrophy and ex vacuo enlargement of the right lateral ventricle is observed unchanged. No extra-axial fluid collection, mass or midline shift is seen. IMPRESSION: Vascular calcification, diffuse atrophy, old right middle cerebral artery infarction pattern. No acute intracranial abnormality. Electronically Signed by Musa Peñaloza MD 11/08/2019 03:40 P
[2019-11-08] MEDS: HEPARIN DRIP 25,000 UNITS in IV 1 EA IV SCH (18:33)
--- NOTE | 2019-11-08 22:00 | IPNPDOC ---
Date Seen The patient was seen on 11/08/19. Progress Note SUBJECTIVE: 69 y.o female w/ PMH of HTN, HLD & CVA w/ residual left sided weakness was admitted for possible seizure/stroke and NSTEMI. Patient has been managed medically for NSTEMI, no acute events overnight. She is confused in the morning, without any complaints at this time. She appears slightly more altered compared to yesterday with slurred speech & left facial droop, likely chronic. She denies any SOB, CP, N/V/D or abdominal pain. 10 point review of system is negative except for above. OBJECTIVE PHYSICAL EXAMINATION: VITAL SIGNS: Please see below. GENERAL: No distress HEENT: Moist mucus membranes CARDIOVASCULAR: S1, S2, no murmurs RESPIRATORY: Diminished, poor air movement ABDOMINAL: Soft, non-tender, non-distended, +BS EXTREMITIES: No edema NEUROLOGICAL: Significantly reduced/absent movement of LUE & LLE, no deficits appreciated on R side PSYCHOLOGICAL: LABORATORY DATA, IMAGING STUDIES, MICROBIOLOGY: Please see below. ASSESSMENT AND PLAN: 69 y.o female w/ multiple medical comorbidities is admitted for NSTEMI/Takotsubo's with concern for Seizure/TIA. PROBLEMS: 1. NSTEMI/Takotsubo: Continue medical management for NSTEMI, Aspirin, Plavix, statin, BB & Heparin gtt. TTE reviewed, Cardiology following 2. TIA/Seizure: Unknown if symptoms were of neurological origin or brought on by Cardiac event. Repeat CT w/o any changes today, MRI w/o acute stroke. Continue Keppra, TIA workup completed, Carotid stenosis noted, has a previous history and was recommended follow up/possible intervention in the past that she had refused. 3. HTN: continue ARB & BB 4. HLD: continue Statin DVT Prophylaxis - on heparin gtt GI Prophylaxis - not needed VS, I&O, 24H, Fishbone Vital Signs/I&O Vital Signs Date Time Temp Pulse Resp B/P (MAP) Pulse Ox O2 Delivery O2 Flow Rate FiO2 11/08/19 16:00 98.0 77 18 90/55 (67) 96 Room Air 11/08/19 12:15 2.0 I&O- Last 24 Hours up to 6 AM 11/08/19 06:00 Intake Total 300 ml Output Total 0 ml Balance 300 ml Laboratory Data 24H LABS Laboratory Tests 2 11/07/19 19:21: Activated Partial Thromboplast Time 214.8*H, Troponin I 6.28#*H 11/07/19 20:37: Activated Partial Thromboplast Time 206.6*H 11/08/19 04:31: Activated Partial Thromboplast Time 128.6*H, Nucleated Red Blood Cells % (auto) 0.0, Anion Gap 9, Glomerular Filtration Rate > 60.0, Calcium Level 9.1, Total Bilirubin 0.6, Aspartate Amino Transf (AST/SGOT) 38H, Alanine Aminotransferase (ALT/SGPT) 20, Alkaline Phosphatase 111, Total Protein 7.0, Albumin 3.7, Albumin/Globulin Ratio 1.12 11/08/19 12:29: Activated Partial Thromboplast Time 67.6H CBC/BMP Laboratory Tests 11/08/19 04:31 ROSEMARY ALTAMIRANO MD Nov 08, 2019 21:58
[2019-11-09] VITALS (21 sets, daily range): BP systolic 80–117; BP diastolic 48–60
[2019-11-09 05:20] LABS: HEMATOCRIT 32.4 % (36.0-47.0); HEMOGLOBIN 10.9 g/dl (12.0-15.5); MEAN CORPUSCULAR HEMOGLOBIN 34.7 pg (27.0-33.0); MEAN CORPUSCULAR HGB CONC 33.6 g/dl (32.0-36.5); MEAN CORPUSCULAR VOLUME 103.2 fl (80.0-96.0); PLATELET COUNT, AUTOMATED 170 10^3/uL (150-450); RED BLOOD COUNT 3.14 10^6/uL (4.00-5.40)
[2019-11-09 05:49] LABS: BILIRUBIN,TOTAL 0.6 MG/DL (0.2-1.0); CALCIUM LEVEL 8.3 MG/DL (8.8-10.2); CREATININE FOR GFR 0.99 MG/DL (0.55-1.30); GLOMERULAR FILTRATION RATE 58.9 (>39); MAGNESIUM LEVEL 1.7 MG/DL (1.8-2.4); PHOSPHORUS LEVEL 3.2 MG/DL (2.5-4.9); POTASSIUM SERUM 4.2 MEQ/L (3.5-5.1); TOTAL PROTEIN 5.8 GM/DL (6.4-8.2)
[2019-11-09] MEDS ORDERED: DIGOXIN INJ 0.5 MG/2 ML AMP (J1160) As Ordered ONE (06:51)
--- NOTE | 2019-11-09 06:57 | IPNPDOC ---
Date Seen The patient was seen on 11/09/19. Progress Note Interval Progress Note Night resident called at 0611 with report of patient in tachyarrythmia. Patient reported to be asymptomatic. Patient was evaluated at bedside by Resident and Attending Physician. She was asymptomatic with BP of 83/50. HR was ~170 and sustained. EKG was obtained and appeared atrial fibrillation with RVR. Patient received a 500cc bolus of NS. Patients BP remained on low side and Metoprolol push was held. Orthotic Technician on-call Dr. Carrillo was contacted due to patients low blood pressure with recommendations to administer Digoxin. Digoxin 0.5 was given. Patient has remained asymptomatic. VS, I&O, 24H, Fishbone Vital Signs/I&O Vital Signs Date Time Temp Pulse Resp B/P (MAP) Pulse Ox O2 Delivery O2 Flow Rate FiO2 11/09/19 06:40 159 84/50 (61) 11/09/19 04:00 98.2 16 91 Room Air 11/08/19 12:15 2.0 I&O- Last 24 Hours up to 6 AM 11/09/19 06:00 Intake Total 480 ml Output Total 0 ml Balance 480 ml Laboratory Data 24H LABS Laboratory Tests 2 11/08/19 12:29: Activated Partial Thromboplast Time 67.6H 11/08/19 18:31: Activated Partial Thromboplast Time 69.1H 11/09/19 04:55: Activated Partial Thromboplast Time 60.7H, Nucleated Red Blood Cells % (auto) 0.0, Anion Gap 8, Glomerular Filtration Rate 58.9, Calcium Level 8.3L, Phosphorus Level 3.2, Magnesium Level 1.7L, Total Bilirubin 0.6, Aspartate Amino Transf (AST/SGOT) 36, Alanine Aminotransferase (ALT/SGPT) 21, Alkaline Phosphatase 84, Total Protein 5.8L, Albumin 3.0L, Albumin/Globulin Ratio 1.07 CBC/BMP Laboratory Tests 11/09/19 04:55 MANDEEP BOWIE DO Nov 09, 2019 06:57
[2019-11-09] MEDS ORDERED: MAG SULF 1GM/100ML (MAG RUN) 1 GM in IV 1 EA IV ONE ×2 (07:00→12:00)
[2019-11-09] MEDS ORDERED: DIGOXIN INJ 0.5 MG/2 ML AMP (J1160) IV ONE (07:00)
[2019-11-09] MEDS ORDERED: NS 500 ML IV ONE ×2 (07:00→07:45)
--- NOTE | 2019-11-09 07:00 | ECGEPIP ---
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
[2019-11-09] MEDS ORDERED: MAGNESIUM SULFATE 1 GM/100 ML D5W BAG (10MG/ML) (J3475) As Ordered ONE (07:07)
[2019-11-09] MEDS: NS 500 ML IV ONE ×2 (07:46→07:49)
[2019-11-09] MEDS: CARVedilol 3.125 MG TAB PO SCH ×3 (09:30→20:54)
[2019-11-09] MEDS: DOCUSATE SODIUM 100 MG CAP PO SCH ×2 (09:35→21:27)
[2019-11-09] MEDS: levETIRAcetam 250MG TABLET (KEPPRA) PO SCH ×2 (09:35→21:27)
[2019-11-09] MEDS: CLOPIDOGREL 75 MG TAB PO SCH (09:35)
[2019-11-09] MEDS: ATORVASTATIN 20 MG TAB PO SCH (09:35)
[2019-11-09] MEDS: PANTOPRAZOLE 20 MG TAB PO SCH (09:35)
--- NOTE | 2019-11-09 09:48 | IPN ---
DATE: 11/09/2019 SUBJECTIVE: Ms Guzman was seen and examined this morning during bedside rounds. Overnight patient went into atrial fibrillation with rapid ventricular rate (RVR) with a ventricular rate of 161 beats per minute. When we saw her at bedside, she actually converted back to sinus rhythm with a heart rate of 92. She was given a dose of 0.5 mg of digoxin as well as a 500 liter bolus because her blood pressure was slightly low with a systolic of 90. Patient does not remember any of these symptoms. She responded appropriately to both medications. This morning when we say her, her heart rate came down to 92 beats per minute to a systolic of 109. She does endorse having a wet cough but no chest pain or shortness of breath. No trouble breathing. PHYSICAL EXAMINATION: VITALS: Temperature 96.9, pulse 109, respiration 18, blood pressure 95/59 (71), pulse ox 93% on room air. GENERAL: This is a 69-year-old female who currently does not appear in any acute distress, but continues not to be alert and oriented. No jugular venous distention (JVD) noted. LUNGS: Upper respiratory with adventitious lung sounds but no bibasal crackles appreciated today. No wheezing or rales. Cannot have patient clear her throat for she does not follow commands really well. CARDIAC: Distal heart sounds. Regular rate and rhythm systolic. 16 systolic murmur at the right intercostal space. No radiation. ABDOMEN: Soft, nontender. EXTREMITIES: No lower extremity edema. NEUROLOGIC: Alert and oriented to place only. Muscle strength exam not done. Can have a conversation but very child-like demeanor. LABORATORY: Hematology: WBC 11.0, hemoglobin 10.9, hematocrit 32.4, platelets 170. Chemistry: Sodium 142, potassium 4.2, chloride 109, carbon dioxide 25, anion gap 8, BUN 16, creatinine 0.99, GFR 58.9, fasting glucose 106, calcium 8.3, magnesium 1.7. CARDIAC MEDICATIONS: - valsartan - aspirin - heparin drip - Plavix - atorvastatin - discontinued carvedilol last night. - digoxin one time 0.5 mg IMPRESSION: 1. 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 2. Elevated troponin peaked at 3 possibly secondary to apical ballooning syndrome. 3. History of seizures. 4. Cerebrovascular accident (CVA) with current left-sided weakness. 5. History of hyperlipidemia. 6. Hypertension. 7. Paroxysmal atrial fibrillation, currently in sinus rhythm. PLAN: EKG from earlier this morning was reviewed that showed the patient was in atrial fibrillation with RVR remaining on telemetry at bedside today. Later this morning, she was converted back to sinus rhythm with 92 beats per minute. She responded appropriately to the digoxin 0.5 mg as well as magnesium sulfate in a 500 bolus. We do recommend loading her up with digoxin 0.5 mg for another two more doses every 8 hours apart. For anticoagulation, she is currently on a heparin drip. We recommend continuing this for another 24 hours. Then converting her and then switching her over to oral anticoagulation such as Eliquis. She is currently on triple therapy with aspirin, clopidogrel, and heparin drip. We do recommend discontinuing the aspirin so we reduce her risk of bleeds. I have placed her on Protonix 20 mg by mouth daily as well. Lastly, for her stress induced cardiomyopathy/apical ballooning syndrome, she is currently on valsartan and her Coreg was discontinued because of low blood pressure. The preferred drug for this is actually a beta gloria, so we will discontinue te valsartan and we started the Coreg with hold parameters.
--- NOTE | 2019-11-09 12:18 | IPNPDOC ---
Date Seen The patient was seen on 11/09/19. Progress Note SUBJECTIVE: Patient was seen and examined at the bedside this morning. She went into atrial fibrillation with rapid ventricular response overnight. She was evaluated by night resident and attending physician for blood pressure 83/50 and heart rate around 170. Dr. Carrillo was called and patient was given digoxin and 500 mL bolus 2. This morning, she has borderline low blood pressure in the 90s systolic and heart rate has decreased to 60s to 70s. She has converted back to sinus rhythm. The patient is asymptomatic. She denies any lightheadedness, dizziness, chest pain, racing heart. She denies any shortness of breath. OBJECTIVE PHYSICAL EXAMINATION: VITAL SIGNS: Please see below. GENERAL APPEARANCE: Laying in bed, appears stated age, no acute distress, calm, cooperative HEENT: EOMI, PERRLA, neck is supple with no thyromegaly or lymphadenopathy RESPIRATORY: Lungs are clear to auscultation bilaterally with no adventitious breath sounds appreciated CARDIOVASCULAR: no JVD, RRR, patient has a 2/6 systolic ejection murmur heard best in the right upper sternal border. No other murmurs, gallops or rubs are appreciated ABDOMEN: Soft, nontender to palpation in all four quadrants, no mass es/organomegaly EXTREMITIES: no clubbing, cyanosis or edema noted NEUROLOGICAL: Unable to fully examine as patient not following all commands due to confusion. No obvious focal deficits PSYCHIATRIC: Patient is not oriented to time or place, consistent with previous exam Skin: No rashes or ulcers. LN: No significant cervical or inguinal lymphadenopathy LABORATORY DATA, IMAGING STUDIES, MICROBIOLOGY: Please see below. Echocardiogram (11/07/2019): IMPRESSION: 1. Severe left ventricular systolic dysfunction with regional wall motion abnormalities consistent with apical ballooning syndrome/Takotsubo Takotsubo syndrome. 2. Mild mitral regurgitation with mitral annulus calcification. The left atrium appeared to be mildly enlarged.. The left atrium subjectively appeared to be mildly enlarged. 3. Mild tricuspid regurgitation with mild pulmonary hypertension. 4. Aortic valve sclerosis with mild aortic regurgitation but no aortic stenosis. 5. Trace pericardial effusion. 6. A sigmoid appearance of the basal ventricular septum was noted, a benign finding. 7. This was compared with echocardiogram in August of 2017; and at that time, left ventricular ejection fraction (LVEF) was normal, there was no regional wall motion abnormalities. Pulmonary artery pressure also was calculated to be higher. DVT prophylaxis ordered?: on heparin drip ASSESSMENT AND PLAN: This is a 69-year-old female with history of CVA, hypertension, hyperlipidemia who presented with altered mental status concerning for TIA vs seizure. In addition, she is being treated for NSTEMI/Takotsubo cardiomyopathy, now with atrial fibrillation with rapid ventricular response. PROBLEMS: 1. Stress-induced cardiomyopathy/NSTEMI with elevated troponins: -Cardiology consulted. Appreciate recommendations. -Aspirin held for time being -Continue Plavix, Coreg, Atorvastatin, heparin drip. Will stop heparin drip tomorrow and transition to Eliquis 2. Paroxysmal atrial fibrillation: BP improving and HR sinus in 60s-70s this AM -Continue Digoxin with hold parameter -AC with heparin drip. Will transition to PO Eliquis 3. History of CVA: -CT head and MRIs thus far negative for CVA. -Patient has >70% stenosis in R ICA. Reportedly was aware but does not wish to have surgery for this. 4. History of seizures: -Continue Keppra 5. History of HTN: -Losartan stopped given low BP DISPOSITION: Pending improvement in BP and HR. PT/OT as needed Attending Addendum: I discussed the care/management of this patient with Resident in detail and agree with the plan above. VS, I&O, 24H, Fishbone Vital Signs/I&O Vital Signs Date Time Temp Pulse Resp B/P (MAP) Pulse Ox O2 Delivery O2 Flow Rate FiO2 11/09/19 09:55 68 98/50 (66) 11/09/19 08:00 96.9 18 93 Room Air 11/08/19 12:15 2.0 I&O- Last 24 Hours up to 6 AM 11/09/19 06:00 Intake Total 480 ml Output Total 0 ml Balance 480 ml Laboratory Data 24H LABS Laboratory Tests 2 11/08/19 12:29: Activated Partial Thromboplast Time 67.6H 11/08/19 18:31: Activated Partial Thromboplast Time 69.1H 11/09/19 04:55: Activated Partial Thromboplast Time 60.7H, Nucleated Red Blood Cells % (auto) 0.0, Anion Gap 8, Glomerular Filtration Rate 58.9, Calcium Level 8.3L, Phosphorus Level 3.2, Magnesium Level 1.7L, Total Bilirubin 0.6, Aspartate Amino Transf (AST/SGOT) 36, Alanine Aminotransferase (ALT/SGPT) 21, Alkaline Phosphat ase 84, Total Protein 5.8L, Albumin 3.0L, Albumin/Globulin Ratio 1.07 CBC/BMP Laboratory Tests 11/09/19 04:55 Microbiology Microbiology 11/08/19 Stool Occult Blood (AASHISH) - Final, Complete GME ATTESTATION GME ATTESTATION My faculty preceptor for this patient encounter was physically present during the encounter and was fully available. All aspects of the patient interview, examination, medical decision making process, and medical care plan development were reviewed and approved by the faculty preceptor. The faculty preceptor is aware and concurs with the plan as stated in the body of this note and will attest to such by his/her cosignature. FREDIS LANDRUM MD Nov 09, 2019 12:18 ROSEMARY ALTAMIRANO MD Nov 10, 2019 20:21
[2019-11-09] MEDS: DIGOXIN 0.25 MG TAB PO SCH ×2 (16:06→23:53)
--- NOTE | 2019-11-09 17:13 | ECGEPIP ---
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
--- NOTE | 2019-11-09 17:14 | ECGEPIP ---
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
[2019-11-09] MEDS: HEPARIN DRIP 25,000 UNITS in IV 1 EA IV SCH (18:48)
[2019-11-10] VITALS (8 sets, daily range): BP systolic 94–125; BP diastolic 48–76
[2019-11-10 04:51] LABS: HEMATOCRIT 31.2 % (36.0-47.0); HEMOGLOBIN 10.4 g/dl (12.0-15.5); MEAN CORPUSCULAR HEMOGLOBIN 35.4 pg (27.0-33.0); MEAN CORPUSCULAR HGB CONC 33.3 g/dl (32.0-36.5); MEAN CORPUSCULAR VOLUME 106.1 fl (80.0-96.0); PLATELET COUNT, AUTOMATED 141 10^3/uL (150-450); RED BLOOD COUNT 2.94 10^6/uL (4.00-5.40); WHITE BLOOD COUNT 9.1 10^3/uL (4.0-10.0)
[2019-11-10 05:15] LABS: ALBUMIN 2.8 GM/DL (3.2-5.2); BILIRUBIN,TOTAL 0.5 MG/DL (0.2-1.0); CALCIUM LEVEL 8.5 MG/DL (8.8-10.2); CREATININE FOR GFR 1.08 MG/DL (0.55-1.30); GLOMERULAR FILTRATION RATE 53.2 (>39); POTASSIUM SERUM 4.4 MEQ/L (3.5-5.1); TOTAL PROTEIN 6.1 GM/DL (6.4-8.2)
[2019-11-10] MEDS: CARVedilol 3.125 MG TAB PO SCH ×3 (09:00→20:01)
[2019-11-10] MEDS: PANTOPRAZOLE 20 MG TAB PO SCH (09:10)
[2019-11-10] MEDS: CLOPIDOGREL 75 MG TAB PO SCH (09:10)
[2019-11-10] MEDS: ATORVASTATIN 20 MG TAB PO SCH (09:10)
[2019-11-10] MEDS: DOCUSATE SODIUM 100 MG CAP PO SCH ×2 (09:11→20:01)
[2019-11-10] MEDS: levETIRAcetam 250MG TABLET (KEPPRA) PO SCH ×2 (09:11→20:00)
[2019-11-10] MEDS ORDERED: ELIQ2.5T PO (09:46)
[2019-11-10] MEDS ORDERED: ELIQ5TAB PO (10:12)
--- NOTE | 2019-11-10 11:04 | IPNPDOC ---
Date Seen The patient was seen on 11/10/19. Progress Note SUBJECTIVE: Patient was seen and examined at the bedside this morning. She is much more awake and oriented this morning than yesterday. She wishes to go home. She denies any CP/SOB/N/V/D. She continues to work with PT who have preliminarily recommended continued rehab. OBJECTIVE PHYSICAL EXAMINATION: VITAL SIGNS: Please see below. GENERAL APPEARANCE: Laying in bed, appears stated age, no acute distress, calm, cooperative HEENT: EOMI, PERRLA, neck is supple with no thyromegaly or lymphadenopathy RESPIRATORY: Lungs are clear to auscultation bilaterally with no adventitious breath sounds appreciated CARDIOVASCULAR: no JVD, RRR, patient has a 2/6 systolic ejection murmur heard best in the right upper sternal border. No other murmurs, gallops or rubs are appreciated ABDOMEN: Soft, nontender to palpation in all four quadrants, no masses/organomegaly EXTREMITIES: no clubbing, cyanosis or edema noted NEUROLOGICAL: Unable to fully examine as patient not following all commands due to confusion. No obvious focal deficits PSYCHIATRIC: Patient is not oriented to time or place, consistent with previous exam Skin: No rashes or ulcers. LN: No significant cervical or inguinal lymphadenopathy LABORATORY DATA, IMAGING STUDIES, MICROBIOLOGY: Please see below. Echocardiogram (11/07/2019): IMPRESSION: 1. Severe left ventricular systolic dysfunction with regional wall motion abnormalities consistent with apical ballooning syndrome/Takotsubo syndrome. 2. Mild mitral regurgitation with mitral annulus calcification. The left atrium appeared to be mildly enlarged.. The left atrium subjectively appeared to be mildly enlarged. 3. Mild tricuspid regurgitation with mild pulmonary hypertension. 4. Aortic valve sclerosis with mild aortic regurgitation but no aortic stenosis. 5. Trace pericardial effusion. 6. A sigmoid appearance of the basal ventricular septum was noted, a benign finding. 7. This was compared with echocardiogram in August of 2017; and at that time, left ventricular ejection fraction (LVEF) was normal, there was no regional wall motion abnormalities. Pulmonary artery pressure also was calculated to be higher. DVT prophylaxis ordered?: on heparin drip ASSESSMENT AND PLAN: This is a 69-year-old female with history of CVA, hypertension, hyperlipidemia who presented with altered mental status concerning for TIA vs seizure. In addition, she is being treated for NSTEMI/Takotsubo cardiomyopathy who yesterday experienced paroxysmal atrial fibrillation with rapid ventricular response now auto-converted to sinus rhythm. PROBLEMS: 1. Stress-induced cardiomyopathy/NSTEMI with elevated troponins: -Cardiology consulted. Appreciate recommendations. -Aspirin held for time being -Continue Plavix, Coreg, Atorvastatin -Heparin drip stopped, Eliquis started and sent to pharmacy for prior authorization 2. Paroxysmal atrial fibrillation: BP improving and HR sinus in 60s-70s this AM -s/p digoxin -Continue PO Eliquis 3. History of CVA: -CT head and MRIs thus far negative for CVA. -Patient has >70% stenosis in R ICA. Reportedly was aware but does not wish to have surgery for this. 4. History of seizures: -Continue Keppra 5. History of HTN: -Losartan stopped given low BP DISPOSITION: Pending improvement in BP and HR. PT/OT Attending Addendum: I discussed the care/management of this patient with Resident in detail and agree with the plan above. VS, I&O, 24H, Fishbone Vital Signs/I&O Vital Signs Date Time Temp Pulse Resp B/P (MAP) Pulse Ox O2 Delivery O2 Flow Rate FiO2 11/10/19 10:08 65 100/53 (69) 11/10/19 08:00 96.2 18 91 Room Air 11/08/19 12:15 2.0 I&O- Last 24 Hours up to 6 AM 11/10/19 06:00 Intake Total 1022 ml Output Total 200 ml Balance 822 ml Laboratory Data 24H LABS Laboratory Tests 2 11/09/19 11:52: Activated Partial Thromboplast Time 93.0H 11/09/19 18:30: Activated Partial Thromboplast Time 75.8H 11/10/19 04:03: Activated Partial Thromboplast Time 87.6H, Nucleated Red Blood Cells % (auto) 0.0, Anion Gap 6L, Glomerular Filtration Rate 53.2, Calcium Level 8.5L, Total Bilirubin 0.5, Aspartate Amino Transf (AST/SGOT) 31, Alanine Aminotransferase (ALT/SGPT) 18, Alkaline Phosphatase 82, Total Protein 6.1L, Albumin 2.8L, Albumin/Globulin Ratio 0.85L CBC/BMP Laboratory Tests 11/10/19 04:03 Microbiology Microbiology 11/08/19 Stool Occult Blood (AASHISH) - Final, Complete GME ATTESTATION GME ATTESTATION My faculty preceptor for this patient encounter was physically present during the encounter and was fully available. All aspects of the patient interview, examination, medical decision making process, and medical care plan development were reviewed and approved by the faculty preceptor. The faculty preceptor is aware and concurs with the plan as stated in the body of this note and will attest to such by his/her cosignature. FREDIS LANDRUM MD Nov 10, 2019 11:04 ROSEMARY ALTAMIRANO MD Nov 10, 2019 20:26
--- NOTE | 2019-11-10 11:18 | IPN ---
DATE OF SERVICE: 11/10/2019 SUBJECTIVE: Ms. Guzman was seen and examined this morning during bedside rounds with Dr. Carrillo at bedside. She states she is feeling a lot better. She slept really well last night with no problems whatsoever. She states this is the best sleep she has had in the last 41 years. She has no complaints today. She is appropriately answering questions. She understands where she is, at [facility], and what year it is and who the current president is. She has no complaints of chest pain, shortness of breath or trouble breathing. She continues to complain of low back pain and left shoulder discomfort, but that is chronic for her and no acute changes. She denies any change in appetite as well. She is just sad that her is not here with her, but she has no other complaints today. PHYSICAL EXAMINATION: VITALS: Temperature 96.2, pulse 85, respiration 18, blood pressure 94/48 (64), pulse ox 91% on room air. GENERAL: This is a very pleasant 69-year-old female who does not appear in any acute distress, appropriately answering questions finally today, alert and oriented times three. HEENT: Atraumatic, normocephalic. Pupils equal round and reactive. LUNGS: Clear to auscultate bilaterally. No audible wheezing, rhonchi or rales. No crackles appreciated. CARDIAC: Very distant heart sounds, very difficult to appreciate. I believe there is a 1/6 systolic murmur in the right intercostal space with no radiation and is regular rate and rhythm. ABDOMEN: Soft, Nontender. EXTREMITIES: No lower extremity edema. NEUROLOGIC: Alert and oriented times three. Muscle strength exam not done. Appropriately answering questions today. LABORATORIES: Hematology: WBC 9.1, hemoglobin 10.4, hematocrit 31.2, platelets 141. Chemistry: Sodium 141, potassium 4.4, chloride 111, carbon dioxide 24, anion gap 6, BUN 17, creatinine 1.08, fasting glucose 95, calcium 8.5. IMAGING: No new imaging. CARDIAC MEDICATIONS: - aspirin - heparin drip - Plavix - atorvastatin - carvedilol - completed digoxin loading dose IMPRESSIONS: 1. Stress induced cardiomyopathy/apical ballooning syndrome. 2. Elevated troponin secondary to demand ischemia from apical ballooning syndrome. 3. Paroxysmal atrial fibrillation, currently in sinus rhythm, on heparin drip. 4. Cerebrovascular accident (CVA) with current left-sided weakness. 5. History of seizures. 6. History of hyperlipidemia. 7. Hypertension. PLAN: The patient was already loaded a dose of the digoxin, does not need to continue with daily digoxin. She continues to be in sinus rhythm. Recommend discontinuing on heparin today and switching her to Eliquis 5 mg twice a day as she is under the age of 78, her weight is greater than 60 and her creatinine is less than 1.5. Continue with the carvedilol 3.125 mg twice a day. I have changed the whole parameters to be held if systolic is less than 90 and with heart rate parameters. She will need to get the beta gloria because of the apical ballooning syndrome. Continue with Plavix as prescribed and atorvastatin as well. Will continue to monitor the patient. Currently improved significantly since she has been admitted.
[2019-11-10] MEDS: APIXABAN 5 MG TAB (ELIQUIS) PO SCH ×2 (12:35→20:00)
[2019-11-11] VITALS: BP 133/66
[2019-11-11 04:55] LABS: HEMATOCRIT 31.9 % (36.0-47.0); HEMOGLOBIN 10.5 g/dl (12.0-15.5); MEAN CORPUSCULAR HEMOGLOBIN 34.7 pg (27.0-33.0); MEAN CORPUSCULAR HGB CONC 32.9 g/dl (32.0-36.5); MEAN CORPUSCULAR VOLUME 105.3 fl (80.0-96.0); PLATELET COUNT, AUTOMATED 154 10^3/uL (150-450); RED BLOOD COUNT 3.03 10^6/uL (4.00-5.40); WHITE BLOOD COUNT 8.4 10^3/uL (4.0-10.0)
[2019-11-11 05:12] LABS: CALCIUM LEVEL 8.7 MG/DL (8.8-10.2); CREATININE FOR GFR 1.03 MG/DL (0.55-1.30); GLOMERULAR FILTRATION RATE 56.2 (>39); MAGNESIUM LEVEL 2.1 MG/DL (1.8-2.4); POTASSIUM SERUM 4.5 MEQ/L (3.5-5.1)
[2019-11-11 08:00] VITALS: BP 95/50
[2019-11-11] MEDS: CLOPIDOGREL 75 MG TAB PO SCH (08:47)
[2019-11-11] MEDS: ATORVASTATIN 20 MG TAB PO SCH (08:47)
[2019-11-11] MEDS: levETIRAcetam 250MG TABLET (KEPPRA) PO SCH (08:48)
[2019-11-11] MEDS: DOCUSATE SODIUM 100 MG CAP PO SCH (08:48)
[2019-11-11] MEDS: APIXABAN 5 MG TAB (ELIQUIS) PO SCH (08:48)
[2019-11-11] MEDS: PANTOPRAZOLE 20 MG TAB PO SCH (08:48)
[2019-11-11] MEDS ORDERED: CARVedilol 3.125 MG TAB PO SCH (09:00)
--- NOTE | 2019-11-11 09:05 | IPN ---
DATE OF SERVICE: 11/11/2019 ATTENDING PHYSICIAN: Jaret Carrillo MD SUBJECTIVE: Ms. Guzman was seen and examined this morning during bedside rounds with Dr. Carrillo at bedside. There were no overnight events reported by nursing or on telemetry. She maintained a heart rate between 50 to high 60s. She tolerated the Coreg with no problems. She stayed in sinus rhythm. She is very sad that she is unable to go home, and she misses her . She states she did not get out of bed for she is just very tired. PHYSICAL EXAMINATION: VITAL SIGNS: Temperature 97.6, pulse 66, respiration 20, blood pressure 133/66, mean arterial pressure (MAP) of 80, pulse oximetry 93% on room air. GENERAL: This is a very pleasant 69-year-old female who does not appear in any acute distress, appropriately answering questions, alert and oriented times three. HEENT: Atraumatic, normocephalic. No jugular venous distention (JVD). LUNGS: Clear to auscultate bilaterally. No audible wheezing, rhonchi, or rales. Diminished breath sounds a little bit due to lack of expiratory. CARDIAC: Very distant heart sounds, difficult to appreciate, regular rate and rhythm. ABDOMEN: Soft, Nontender. EXTREMITIES: No lower extremity edema. NEUROLOGIC: Alert and oriented times three. LABORATORIES: WBC 8.4, hemoglobin 10.5, hematocrit 31.9, platelets 154. Sodium 142, potassium 4.5, chloride 112, carbon dioxide 24, anion gap 6, BUN 18, creatinine 1.03, fasting glucose 100, calcium 8.7, magnesium 2.1. No new imaging. CARDIAC MEDICATIONS: - Eliquis 5 mg twice a day - Coreg 3.125 mg twice a day - Plavix 75 mg daily - Lipitor 80 mg by mouth daily IMPRESSIONS: 1. Stress-induced cardiomyopathy/apical ballooning syndrome. 2. Elevated troponin secondary to demand ischemia from apical ballooning syndrome. 3. Paroxysmal atrial fibrillation, currently in sinus rhythm. Congestive heart failure, hypertension, age, diabetes, stroke (CHADS)-vascular disease, age, sex category (VASc) score minimum 5. On Eliquis 5 mg twice a day needs to continue and beta gloria. 4. Cardiovascular event. 5. History of seizures. 6. History of hyperlipidemia. 7. Hypertension. PLAN: From a cardiac standpoint, the patient is very stable today. Her heart rate in appropriate range with adequate blood pressure control. We do recommend titrating her Coreg up to 6.25 mg twice a day and changing the hold parameters to hold if systolic is less than 100 and heart rate less than 60. For her paroxysmal atrial fibrillation, she will need to be on lifelong Eliquis 5 mg twice a day because her CHADS-VASc score is greater than 5 to reduce her risk of a stroke. Hemoglobin and hematocrit are stable. Continue with the Plavix and atorvastatin for her recent stroke and history of hyperlipidemia, as well.
[2019-11-11] MEDS ORDERED: CARV3.12 PO (10:27)
[2019-11-11] MEDS ORDERED: KEPP250T5 PO (10:27)
[2019-11-11] MEDS ORDERED: ATOR1TAB21 PO (10:27)
[2019-11-11] MEDS ORDERED: PANT20TA2 PO (10:27)
--- NOTE | 2019-11-11 16:37 | DS.PDOC ---
Discharge Summary General Date of Admission Nov 07, 2019 at 06:06 Date of Discharge 11/11/2019 Primary Care Physician: HUYEN RODRIGEZ PA-C Attending Physician: ROSEMARY ALTAMIRANO MD Specialist/Consultants Involve: Jaret Carrillo MD Discharge Summary PROCEDURES PERFORMED DURING STAY: [None]. ADMITTING DIAGNOSES: 1. AMS 2/2 seizure vs TIA 2. Elevated troponins DISCHARGE DIAGNOSES: 1. TIA 2. Takutsubo's cardiomyopathy COMPLICATIONS/CHIEF COMPLAINT: TIA. HISTORY OF PRESENT ILLNESS: 69-year-old female with past medical history of CVA in 2018 with left-sided residual deficits, hypertension, hyperlipidemia, heavy smoker, presents to the ER for signs and symptoms of possible stroke and seizure. Majority of history was obtained by the at bedside. Patient does not recall the events of the past 8 hours. As per , patient was in her normal state of health earlier this evening. They went to bed at approximately 6 PM. Around 3 AM in the morning, noted that his was groaning. When he looked at her in bed, he noticed that she was frothing at the mouth and shaking. He states that this episode lasted approximately 15 minutes in his estimation. He called 911 immediately. During this trembling episode, patient was not responsive to his voice and did not follow commands. She usually wears a diaper, so he is unaware if she wet herself. There was no tongue biting noted. EMS records reveal that during transport, patient had another episode of seizure-like activity that lasted approximately 30 seconds to 1 minute, which resolved on its own. As per , patient has been doing relatively well at home. She is not had any recent fevers, chills, shortness of breath, chest pain, vomiting that he knows of. She is usually sitting in a chair and unable to ablate due to her condition, although he does try to get her up and walk a few feet when he can. 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 She is usually able to move her left leg against gravity As per and has been getting stronger recently. Upon ER evaluation, patient was found to be combative and flailing her arms and unable to follow commands. She was nonverbal at that time appeared to be confused. Lab work showed an elevated white count with no left shift and elevated cardiac markers to 0.4. EKG did reveal some J point elevations in the precordial leads that were not present before. CT head shows encephalomalacia that appears to be chronic, although more edema is present now than before. CT Chest/abd/pel was negative for any other acute issues. Hospitalist called for admission and further evaluation. HOSPITAL COURSE: The patient was admitted following episode of AMS and shaking at home, thought to be CVA or seizure. She was started on empiric Keppra. Full TIA workup revealed >70% stenosis in R ICA. Patient was already aware of this and chose not to have any surgical intervention. In addition, troponins were trended and peaked on HD #2. She was found to have NSTEMI and apical ballooning syndrome concerning for ischemic event vs Takotsubo CM due to an inferred cerebral event. She was started on a heparin drip, ASA, Plavix, statin and beta gloria. On HD #3 the patient became somewhat hypotensive and overnight went into rapid atrial fibrillation with RVR. Cardiology was urgently called, the patient was given digoxin, and she spontaneously converted back to sinus rhythm. The patient remained in sinus rhythm in the 60s-70s throughout the rest of the hospitalization. She was transitioned from the heparin drip to PO Eliquis for anticoagulation. She was evaluated by PT and OT who both recommended placement in an inpatient rehab facility prior to going home, but both the patient and her declined. The was advised of the risks associated with any untoward event like falls in the home. He voiced understanding. DISCHARGE MEDICATIONS: Please see below. ALLERGIES: Please see below. PHYSICAL EXAMINATION ON DISCHARGE: GENERAL APPEARANCE: Laying in bed, appears stated age, no acute distress, calm, cooperative HEENT: EOMI, PERRLA, neck is supple with no thyromegaly or lymphadenopathy RESPIRATORY: Lungs are clear to auscultation bilaterally with no adventitious breath sounds appreciated CARDIOVASCULAR: no JVD, RRR, patient has a 2/6 systolic ejection murmur heard best in the right upper sternal border. No other murmurs, gallops or rubs are appreciated ABDOMEN: Soft, nontender to palpation in all four quadrants, no masses/organomegaly EXTREMITIES: no clubbing, cyanosis or edema noted NEUROLOGICAL: Unable to fully examine as patient not following all commands due to confusion. No obvious focal deficits PSYCHIATRIC: Patient is not oriented to time or place, consistent with previous exam Skin: No rashes or ulcers. LN: No significant cervical or inguinal lymphadenopathy LABORATORY DATA: Please see below. IMAGING: CAROTID DUPLEX US: IMPRESSION: 1. Right CCA and ICA calcified plaques with significant increased in velocities in the right carotid bulb and proximal right ICA suggestive of severe more than 70% stenosis. 2. Left CCA and ICA calcified plaques with Doppler findings suggestive of less than 50% stenosis. 3. Right and left vertebral arteries not visualized. CT HEAD: CT FINDINGS: Digital preliminary pretzel cooker radiograph is unremarkable and unchanged. The bony calvarium remains intact. There is heavy vascular calcification in the carotid siphons bilaterally. Visualized paranasal sinuses are unremarkable. There is an extensive pattern of old encephalomalacia in the distribution of the right middle cerebral artery unchanged from the previous day's CT study. There is no evidence of intracranial hemorrhage. No new cortical infarction is appreciated. There is diffuse atrophy and ex vacuo enlargement of the right lateral ventricle is observed unchanged. No extra-axial fluid collection, mass or midline shift is seen. IMPRESSION: Vascular calcification, diffuse atrophy, old right middle cerebral artery infarction pattern. No acute intracranial abnormality. MRA BRAIN: IMPRESSION: 1. There is origin of the left posterior cerebral artery. 2. There is codominant origin of the right posterior cerebral artery from the internal carotid via a large posterior communicator and from the P1 segment. 3. There is no flow in the right internal carotid artery at the base of the skull. There is flow detected in the distal cavernous segment which may reflect collateral filling from the right ophthalmic artery suggested on previous CTA. It is also possible that the large right posterior communicating artery is providing supply from the basilar circulation via the right P1. 4. There is a very small right middle cerebral artery tapering immediately following the internal carotid origin similar to findings on the previous study. Some flow appeared to have been re-established by the time of the CT angiogram. There is very poor distal signal in the right MCA branches. MRI BRAIN: IMPRESSION: 1. There is extensive encephalomalacia of the right middle cerebral artery territory involving cortical tissue more extensive than the ischemic changes limited to the right basal ganglia seen on comparison MRI. There is no evidence of diffusion restriction at this time to suggest a new infarct, however. 2. There is mild laminar necrosis pattern of the sylvian formation posteriorly on sagittal image 21 and of the superior right frontal lobe on axial image 801:22. These do not suggest significant hemorrhage. CT ABD/PELVIS: IMPRESSION: 1. Lobulated mildly dense material within the gallbladder posteriorly could represent sludge or noncalcified gallstones however other etiologies cannot be excluded. Correlation with ultrasound is suggested. No CT findings of acute cholecystitis. 2. Extensive bilateral multifocal renal cortical atrophy likely the sequelae of recurrent infection/inflammation or vesicoureteral reflux. 3. Diffuse bony osteopenia with mild decrease of height of L4 vertebral body and mild anterior wedging of T11 and T10 vertebral body. These are likely chronic however age is indeterminate on this exam. Comparison to old study if available be helpful. Alternatively and if clinically indicated MRI may be obtained for further evaluation. CT CHEST: FINDINGS: Lungs: There is mild atelectatic changes in the lingula. There is a 2.1 cm bullae in the right lung base. Pleural space: Unremarkable. No pneumothorax. No pleural effusion. Heart: There is moderate coronary vascular calcifications. Aorta: There is ufau-ly-fzbinyfv aortic mural calcifications. Lymph nodes: Unremarkable. No enlarged lymph nodes. Bones/joints: There is diffuse bony osteopenia. Soft tissues: Unremarkable. IMPRESSION: 1. No focal lung consolidation or infiltrates. 2. 2.1 cm right lung base bullae. PROGNOSIS: fair ACTIVITY: [As tolerated]. DIET: as tolerated DISCHARGE PLAN: Home with home health services DISPOSITION: Home Health Service. DISCHARGE INSTRUCTIONS: 1. Please follow up with Dr. Carrillo and your PCP within 7 days ITEMS TO FOLLOWUP ON ON OUTPATIENT: 1. none DISCHARGE CONDITION: [Stable]. TIME SPENT ON DISCHARGE: Greater than 45 minutes. Attending Addendum: I discussed the care and management of this patient with resident in detail and agree with the plan above. Vital Signs/I&Os Vital Signs Date Time Temp Pulse Resp B/P (MAP) Pulse Ox O2 Delivery O2 Flow Rate FiO2 11/11/19 08:00 97.2 62 20 95/50 (65) 94 Room Air 11/08/19 12:15 2.0 I&O- Last 24 Hours up to 6 AM 11/11/19 06:00 Intake Total 810 ml Output Total 0 ml Balance 810 ml Laboratory Data Labs 24H Laboratory Tests 2 11/11/19 04:24: Nucleated Red Blood Cells % (auto) 0.0, Anion Gap 6L, Glomerular Filtration Rate 56.2, Calcium Level 8.7L, Magnesium Level 2.1 CBC/BMP Laboratory Tests 11/11/19 04:24 Microbiology Microbiology 11/08/19 Stool Occult Blood (AASHISH) - Final, Complete Discharge Medications Scheduled Acetaminophen (Acetaminophen) 500 Mg Tablet, 1,000 MG PO TID, (Reported) Apixaban (Eliquis) 5 Mg Tablet, 1 TAB PO BID Ascorbic Acid (Vitamin C) 500 Mg Cap, 500 MG PO DAILY, (Reported) Atorvastatin Calcium (Atorvastatin Calcium) 20 Mg Tablet, 80 MG PO DAILY Carvedilol (Carvedilol) 3.125 Mg Tablet, 6.25 MG PO DAILY Cetirizine HCl (Cetirizine HCl) 10 Mg Tablet, 10 MG PO DAILY, (Reported) Clopidogrel Bisulfate (Plavix) 75 Mg Tablet, 75 MG PO DAILY, (Reported) Glycerin/Propylene Glycol (Artificial Tears Drops) 15 Ml Drops, 2 DROP OU QID, (Reported) Mv,Calcium,Min/Iron/Folic/Vitk (Multi For Her Tablet) 1 Each Tablet, 1 TAB PO DAILY, (Reported) Pantoprazole Sodium (Pantoprazole Sodium) 20 Mg Tablet.dr, 20 MG PO DAILY Scheduled PRN Albuterol Sulfate (Ventolin Hfa) 18 Gm Hfa.aer.ad, 2 PUFF INH Q4H PRN for wheezing, (Reported) Hydroxyzine HCl (Hydroxyzine HCl) 25 Mg Tablet, 25 MG PO Q8H PRN for ANXIETY, (Reported) Allergies Coded Allergies: TAPE (Verified Allergy, Severe, BLISTERS, 01/18/18) latex (Verified Allergy, Intermediate, RASH BURN, 11/07/19) amlodipine (Verified Adverse Reaction, Unknown, LEG SWELLING, 11/07/19) GME ATTESTATION GME ATTESTATION My faculty preceptor for this patient encounter was physically present during the encounter and was fully available. All aspects of the patient interview, examination, medical decision making process, and medical care plan development were reviewed and approved by the faculty preceptor. The faculty preceptor is aware and concurs with the plan as stated in the body of this note and will attest to such by his/her cosignature. FREDIS LANDRUM MD Nov 11, 2019 15:52 ROSEMARY ALTAMIRANO MD Nov 13, 2019 20:28
== END 2019-11-11 14:20 | disposition home health service (06) | DRG 281 ==
LOC: M ED 04:03 → M ED INP 06:06 → ENRESERVDT 06:28 → ENRESERVTM 06:28 → ENRESERVDT 09:01 → M PCU 09:57
PROVIDERS: ADMIT Internal Medicine; ATTEND Internal Medicine
DX: I51.81 Takotsubo syndrome (principal); I21.4 Non-ST elevation (NSTEMI) myocardial infarction; I69.354 Hemiplegia and hemiparesis following cerebral infarction affecting left non-dominant side; R56.9 Unspecified convulsions; I10 Essential (primary) hypertension; J44.9 Chronic obstructive pulmonary disease, unspecified; F17.210 Nicotine dependence, cigarettes, uncomplicated; I48.0 Paroxysmal atrial fibrillation; I25.10 Atherosclerotic heart disease of native coronary artery without angina pectoris; I73.9 Peripheral vascular disease, unspecified; R41.82 Altered mental status, unspecified; I65.23 Occlusion and stenosis of bilateral carotid arteries; E78.5 Hyperlipidemia, unspecified; Z99.3 Dependence on wheelchair; Z79.82 Long term (current) use of aspirin; Z79.02 Long term (current) use of antithrombotics/antiplatelets; Z79.899 Other long term (current) drug therapy; Z88.8 Allergy status to other drugs, medicaments and biological substances; Z91.040 Latex allergy status; Z91.048 Other nonmedicinal substance allergy status; Z90.13 Acquired absence of bilateral breasts and nipples; Z87.81 Personal history of (healed) traumatic fracture

== ENCOUNTER → 2020-03-16 | Outpatient (REF) | payer MEDICARE ==
[~2020-03-16] MED LIST changes: +ACET-861 PO; +AMLO1TAB24 PO; -AMLO5TAB6 PO; +ARTIDRO OU; -ASPI81TA85 PO; +ASPI81TA86 PO; +ATOR1TAB21 PO; +CARV3.12 PO; +CETI-24 PO; +ELIQ2.5T PO; +ELIQ5TAB PO; +HYDR-3363 PO; +KEPP250T5 PO; +MULTTAB24 PO; +PANT20TA6 PO; +PLAV1TAB2 PO; +VENTAER INH
[2020-04-13 13:10] LABS: APPEARANCE, URINE HAZY (CLEAR); BACTERIA, URINE AUTO NEGATIVE (NEGATIVE); BILIRUBIN, URINE AUTO NEGATIVE (NEGATIVE); BLOOD, URINE BLOOD NEGATIVE (NEGATIVE); COLOR, URINE YELLOW (YELLOW); GLUCOSE, URINE (UA) AUTO NEGATIVE (NEGATIVE); KETONE, URINE AUTO NEGATIVE (NEGATIVE); LEUKOCYTE ESTERASE, URINE AUTO 3+ (NEGATIVE); MUCUS, URINE SMALL (NEGATIVE); NITRITE, URINE AUTO POSITIVE (NEGATIVE); PROTEIN, URINE AUTO NEGATIVE (NEGATIVE); RBC, URINE AUTO 5 /HPF (0-3); SPECIFIC GRAVITY URINE AUTO 1.019 (1.002-1.035); SQUAMOUS EPITHELIAL CELL UR AU 1 /HPF (0-6); UROBILINOGEN, URINE AUTO 0.2 mg/dL (0.0-2.0); WBC, URINE AUTO 51 /HPF (0-3)
== END ==
LOC: M SFHCCAPE 15:20
PROVIDERS: ATTEND Physician Assistant
DX: R30.0 Dysuria (principal)

== ENCOUNTER → 2020-03-24 | Outpatient (REF) | payer MEDICARE ==
[2020-05-11 19:56] LABS: APPEARANCE, URINE HAZY (CLEAR); BACTERIA, URINE AUTO NEGATIVE (NEGATIVE); BILIRUBIN, URINE AUTO NEGATIVE (NEGATIVE); BLOOD, URINE BLOOD NEGATIVE (NEGATIVE); COLOR, URINE YELLOW (YELLOW); GLUCOSE, URINE (UA) AUTO NEGATIVE (NEGATIVE); KETONE, URINE AUTO NEGATIVE (NEGATIVE); LEUKOCYTE ESTERASE, URINE AUTO 2+ (NEGATIVE); MUCUS, URINE SMALL (NEGATIVE); NITRITE, URINE AUTO NEGATIVE (NEGATIVE); PROTEIN, URINE AUTO NEGATIVE (NEGATIVE); RBC, URINE AUTO 4 /HPF (0-3); SPECIFIC GRAVITY URINE AUTO 1.023 (1.002-1.035); SQUAMOUS EPITHELIAL CELL UR AU 4 /HPF (0-6); UROBILINOGEN, URINE AUTO 0.2 mg/dL (0.0-2.0); WBC, URINE AUTO 27 /HPF (0-3)
== END ==
LOC: M SFHCCLAY 11:53
PROVIDERS: ATTEND Physician Assistant
DX: R30.0 Dysuria (principal)

== ENCOUNTER → 2020-05-04 | Outpatient (REF) | payer MEDICARE ==
[2020-05-04 16:29] LABS: APPEARANCE, URINE HAZY (CLEAR); BACTERIA, URINE AUTO NEGATIVE (NEGATIVE); BILIRUBIN, URINE AUTO NEGATIVE (NEGATIVE); BLOOD, URINE BLOOD NEGATIVE (NEGATIVE); COLOR, URINE YELLOW (YELLOW); GLUCOSE, URINE (UA) AUTO NEGATIVE (NEGATIVE); KETONE, URINE AUTO NEGATIVE (NEGATIVE); LEUKOCYTE ESTERASE, URINE AUTO 3+ (NEGATIVE); NITRITE, URINE AUTO NEGATIVE (NEGATIVE); PROTEIN, URINE AUTO NEGATIVE (NEGATIVE); RBC, URINE AUTO 5 /HPF (0-3); SPECIFIC GRAVITY URINE AUTO 1.025 (1.002-1.035); SQUAMOUS EPITHELIAL CELL UR AU 1 /HPF (0-6); UROBILINOGEN, URINE AUTO 0.2 mg/dL (0.0-2.0); WBC, URINE AUTO 37 /HPF (0-3)
== END ==
LOC: M SFHCCLAY 15:45
PROVIDERS: ATTEND Physician Assistant
DX: R30.9 Painful micturition, unspecified (principal)

== ENCOUNTER → 2020-06-22 | Outpatient (REF) | payer MEDICARE ==
[2020-06-22 16:16] LABS: BASO # 0.1 10^3/uL (0.0-0.2); EOS # 0.2 10^3/uL (0.0-0.5); EOS % 1.7 % (0.0-3.0); HEMATOCRIT 38.4 % (36.0-47.0); HEMOGLOBIN 12.4 g/dl (12.0-15.5); LYMPH # 3.3 10^3/uL (1.5-5.0); LYMPH % 30.2 % (24.0-44.0); MEAN CORPUSCULAR HEMOGLOBIN 31.8 pg (27.0-33.0); MEAN CORPUSCULAR HGB CONC 32.3 g/dl (32.0-36.5); MEAN CORPUSCULAR VOLUME 98.5 fl (80.0-96.0); MONO # 0.8 10^3/uL (0.0-0.8); MONO % 7.5 % (0.0-5.0); NEUTROPHILS # 6.4 10^3/uL (1.5-8.5); NEUTROPHILS % 57.9 % (36.0-66.0); PLATELET COUNT, AUTOMATED 249 10^3/uL (150-450); WHITE BLOOD COUNT 11.1 10^3/uL (4.0-10.0)
[2020-06-22 16:46] LABS: ALBUMIN 3.2 GM/DL (3.2-5.2); BILIRUBIN,TOTAL 0.5 MG/DL (0.2-1.0); CALCIUM LEVEL 9.2 MG/DL (8.8-10.2); CHOLESTEROL RISK RATIO 2.5 (<5); CREATININE FOR GFR 1.07 MG/DL (0.55-1.30); GLOMERULAR FILTRATION RATE 53.7 (>39); POTASSIUM SERUM 4.1 MEQ/L (3.5-5.1); THYROID STIMULATING HORMONE 1.58 uIU/ML (0.358-3.740)
== END ==
LOC: M SFHCCLAY 10:07
PROVIDERS: ATTEND Physician Assistant
DX: E78.5 Hyperlipidemia, unspecified (principal)

== ENCOUNTER 2020-08-11 10:44 | Inpatient (IN) | payer MEDICARE ==
[~2020-08-11] VITALS: Ht 162.6 cm; Wt 66.6 kg
[2020-08-11] MEDS ORDERED: NS 1,000 ML IV SCH (10:57)
--- NOTE | 2020-08-11 11:27 | REP ---
INDICATION: Altered Mental Status COMPARISON: 11/08/2019 TECHNIQUE: Axial noncontrast images from the skull base to the thoracic inlet with coronal reformations. This CT examination was performed using the following dose reduction techniques: Automated exposure control, adjustment of mA and/or kv according to the patient's size, and use of iterative reconstruction technique. FINDINGS: Atrophy with periventricular leukomalacia and microvascular ischemic changes are appreciated. Evidence for prior large right middle cerebral artery territory infarction. The ventricles are relatively symmetric. Cabrera-white differentiation is relatively maintained. There is no evidence for acute intracranial hemorrhage, mass/mass effect, pathology or infarction. No extra-axial fluid collection. Calvarium is intact. Paranasal sinuses and mastoid air cells are clear. IMPRESSION: Atrophy and microvascular ischemic changes. Old right MCA infarction. No acute intracranial hemorrhage, infarction, or mass/mass effect. <Electronically signed by Doron Cline > 08/11/20 [id number]
[2020-08-11] MEDS ORDERED: HYDR50TA70 PO (11:40)
[2020-08-11] MEDS ORDERED: LEVE500T5 PO (11:40)
[2020-08-11 11:48] LABS: HEMATOCRIT 39.2 % (36.0-47.0); HEMOGLOBIN 12.2 g/dl (12.0-15.5); MEAN CORPUSCULAR HEMOGLOBIN 29.3 pg (27.0-33.0); MEAN CORPUSCULAR HGB CONC 31.1 g/dl (32.0-36.5); MEAN CORPUSCULAR VOLUME 94.2 fl (80.0-96.0); PLATELET COUNT, AUTOMATED 256 10^3/uL (150-450); RED BLOOD COUNT 4.16 10^6/uL (4.00-5.40); WHITE BLOOD COUNT 15.7 10^3/uL (4.0-10.0)
--- NOTE | 2020-08-11 12:14 | REP ---
INDICATION: Altered Mental Status COMPARISON: 01/18/2018 TECHNIQUE: Portable AP view of the chest FINDINGS: The mediastinum and cardiac silhouette are stable and within normal limits for portable technique. The lung white are clear without acute consolidation, effusion, or pneumothorax. Skeletal structures demonstrate osteopenia and degenerative changes. IMPRESSION: No acute cardiopulmonary process appreciated. <Electronically signed by Doron Cline > 08/11/20 [id number]
[2020-08-11 12:16] LABS: ATYPICAL LYMPH 1 % (0-5); LYMPHOCYTES 8 % (16-44); MONOCYTES 7 % (0-5); NEUTROPHILS 84 % (28-66)
[2020-08-11 12:17] LABS: ANISOCYTOSIS 1+; HYPOCHROMASIA 1+; PLATELET ESTIMATE NORMAL (NORMAL)
[2020-08-11 12:34] LABS: ALBUMIN 2.7 GM/DL (3.2-5.2); ALT/SGPT 7 U/L (12-78); BILIRUBIN,DIRECT 0.2 MG/DL (0.0-0.2); BILIRUBIN,TOTAL 0.9 MG/DL (0.2-1.0); BLOOD UREA NITROGEN 19 MG/DL (7-18); CARBON DIOXIDE LEVEL 29 MEQ/L (21-32); CHLORIDE LEVEL 104 MEQ/L (98-107); CPK CREATINE PHOSPHOKINASE 80 U/L (26-192); CREATININE FOR GFR 0.98 MG/DL (0.55-1.30); GLOMERULAR FILTRATION RATE 59.4 (>39); GLUCOSE, FASTING 106 MG/DL (70-100); POTASSIUM SERUM 4.6 MEQ/L (3.5-5.1); SODIUM LEVEL 140 MEQ/L (136-145); TOTAL PROTEIN 6.4 GM/DL (6.4-8.2); TROPONIN I < 0.02 NG/ML (< 0.10)
[2020-08-11 12:41] LABS: CK-MB VALUE MASS < 1.0 NG/ML (<3.6); DIGOXIN LEVEL 0.1 NG/ML (0.5-2.0); MB/CK RELATIVE INDEX 1.25 (< OR =4)
[2020-08-11] MEDS ORDERED: PANT20TA6 PO (13:08)
[2020-08-11] MEDS ORDERED: ELIQ5TAB PO (13:08)
[2020-08-11] MEDS ORDERED: ATOR80TA59 PO (13:08)
[2020-08-11] MEDS ORDERED: CARV6.25 PO (13:08)
[2020-08-11 13:28] LABS: RSV AMPLIFICATION NEGATIVE (NEGATIVE)
[2020-08-11] MEDS ORDERED: ALBUTEROL SULFATE 2.5 MG/0.5 ML INH NEB SOLN INH PRN (16:00)
[2020-08-11] MEDS: ALBUTEROL SULFATE 2.5 MG/0.5 ML INH NEB SOLN INH SCH ×2 (16:08→20:19)
--- NOTE | 2020-08-11 16:18 | HPE ---
HISTORY AND PHYSICAL DATE OF ADMISSION: 08/11/2020 PRIMARY CARE PROVIDER: CONRADO Mcknight at [facility] [place]. CHIEF COMPLAINT: Dehydration and leukocytosis. HISTORY OF PRESENT ILLNESS: Dianna Guzman is a 70-year-old with a history of stroke requiring total care by her , who brought her to the emergency room because of increasing difficulty with maintaining her oral intake and the feeling that she needed more care than what he could provide. He had called the office in [place] and spoke to Milena Myers on 08/09/2020, stating his had been sleeping more and eating less. He did look into home care versus nursing facility options. They noted a past history of urinary infections and they were going to try to get some testing done, but I do not think they were able to perform that. She is being admitted for further workup. PAST MEDICAL HISTORY: She has a history of stroke. She had right middle cerebral artery occlusion, right basal ganglia stroke, on top of old frontal parietal stroke August 2017. Has a history of Takotsubo cardiomyopathy for which she is seen by cardiology. History of hypertensive heart disease, hyperlipidemia, heavy tobacco abuse, carotid artery disease. She was hospitalized 11/07/2019 through 11/11/2019, for TIA and worsening of the Takotsubo cardiomyopathy. Notable history of medical noncompliance, as well as continued smoking. Past history shows the stroke, hypertensive disease, history of breast cancer, history of left hip fracture, history of chronic anxiety. Abnormal gallbladder ultrasound 11/2019, the patient declined further workup. multifactorial renal cortical atrophy on bilaterally on CT from 11/2019. She also has a history of osteopenia. FAMILY HISTORY: Father of suicide at 46. Mother at 84 with mental illness problems. SOCIAL HISTORY: Still smokes. She is . No alcohol intake. Totally disabled from her stroke. ALLERGIES: AMLODIPINE, LATEX, MEDICAL TAPE. MEDICATIONS: At her last office visit from 06/27/2020, her home medications were - Tylenol as needed - vitamin C - multivitamin - Albuterol two puffs every four hours p.r.n. - cetirizine 10 mg daily - Eliquis 5 mg b.i.d. - carvedilol 6.25 mg daily - Plavix 75 mg daily - atorvastatin 80 mg daily - Keppra 500 mg b.i.d. - hydroxyzine 50 mg every six hours p.r.n. - Protonix 20 mg b.i.d. REVIEW OF SYSTEMS: Not obtainable. Decreased oral intake per review of office chart. PHYSICAL EXAMINATION: VITAL SIGNS: Blood pressure 169/75, pulse 79, respiratory rate 18, O2 saturation 93%. GENERAL APPEARANCE: Chronically ill-appearing. She is dysarthric and cannot answer questions. Emi left hemiparesis. HEENT: Mucous membranes are dry. Pupils equal and reactive to light. Pharynx benign. NECK: No masses. LUNGS: Clear. HEART: Regular rhythm without murmur. ABDOMEN: Soft and nontender with no masses. EXTREMITIES: No peripheral edema. SKIN: No breakdown. LABORATORY DATA: White count 57, hemoglobin 12.2, platelets 256,000. Sodium 148, potassium 4.6, BUN 19, creatinine 0.8, glucose 106. Albumin low at 2.7. TSH normal. No urinalysis done yet. COVID screen is negative. IMAGING: Chest x-ray with no active disease. EKG unremarkable. Head CT showed atrophy and old right MCA infarction. IMPRESSION: 1. Dehydration. Her BUN/creatinine is elevated. She is dehydrated by exam. I will rehydrate her intravenously. 2. History of recurrent urinary tract infections. UA C&S ordered. Could account for her decreased oral intake. 3. History of stroke. Physical and occupational therapy have been ordered. 4. Hypertension. Continue her carvedilol. 5. History of transient ischemic attack (TIA) with carotid artery disease. Continue her Plavix 75 mg, she only takes this once daily. 6. History of Takotsubo cardiomyopathy. She is on anticoagulant of Eliquis 5 mg b.i.d. I do not see history of atrial fibrillation anywhere, but she is on this, as well as a beta-gloria, and we will continue all of these. 7. Hyperlipidemia. Continue her current dose of atorvastatin. 8. Advanced directives. She has a MOLST form in her office chart from 05/12/2019. She is full code and does not want a feeding tube. Does agree to trial of noninvasive ventilation if necessary.
[2020-08-11 17:50] VITALS: BP 189/98
[2020-08-11] MEDS: hydrOXYzine 50 MG TAB PO SCH ×2 (18:43→20:16)
[2020-08-11] MEDS: ATORVASTATIN 20 MG TAB PO SCH (18:43)
[2020-08-11] MEDS: CARVedilol 6.25 MG TAB PO SCH (18:43)
[2020-08-11] MEDS: NS 0.45% 1,000 ML IV SCH (18:44)
[2020-08-11] MEDS: PANTOPRAZOLE 20 MG TAB PO SCH (20:16)
[2020-08-11] MEDS: levETIRAcetam 250MG TABLET (KEPPRA) PO SCH (20:16)
[2020-08-11] MEDS: APIXABAN 5 MG TAB (ELIQUIS) PO SCH (20:16)
[2020-08-11] MEDS: NYSTATIN 100,000 UNITS/GM TOPICAL PWD 15 GM TOP SCH (20:17)
[2020-08-11 22:00] VITALS: BP 172/79
[2020-08-12] MEDS: NS 0.45% 1,000 ML IV SCH ×3 (04:36→20:37)
[2020-08-12 06:00] VITALS: BP 154/78
[2020-08-12] MEDS: ALBUTEROL SULFATE 2.5 MG/0.5 ML INH NEB SOLN INH SCH ×4 (08:00→20:00)
[2020-08-12] MEDS: MICONAZOLE TOPICAL 2% CREAM 15GM TOP SCH ×3 (09:00→20:36)
[2020-08-12] MEDS ORDERED: lisinopriL 5 MG TAB PO SCH (09:00)
[2020-08-12 09:16] LABS: HEMATOCRIT 38.2 % (36.0-47.0); HEMOGLOBIN 12.3 g/dl (12.0-15.5); MEAN CORPUSCULAR HEMOGLOBIN 29.4 pg (27.0-33.0); MEAN CORPUSCULAR HGB CONC 32.2 g/dl (32.0-36.5); MEAN CORPUSCULAR VOLUME 91.2 fl (80.0-96.0); PLATELET COUNT, AUTOMATED 180 10^3/uL (150-450); RED BLOOD COUNT 4.19 10^6/uL (4.00-5.40); WHITE BLOOD COUNT 13.3 10^3/uL (4.0-10.0)
[2020-08-12] MEDS: ATORVASTATIN 20 MG TAB PO SCH (09:22)
[2020-08-12] MEDS: APIXABAN 5 MG TAB (ELIQUIS) PO SCH ×2 (09:23→20:36)
[2020-08-12] MEDS: NYSTATIN 100,000 UNITS/GM TOPICAL PWD 15 GM TOP SCH ×3 (09:23→20:36)
[2020-08-12] MEDS: hydrOXYzine 50 MG TAB PO SCH ×4 (09:23→20:35)
[2020-08-12] MEDS: levETIRAcetam 250MG TABLET (KEPPRA) PO SCH ×2 (09:23→20:35)
[2020-08-12] MEDS: PANTOPRAZOLE 20 MG TAB PO SCH ×2 (09:23→20:36)
[2020-08-12] MEDS: CARVedilol 6.25 MG TAB PO SCH (09:25)
[2020-08-12 09:27] LABS: BLOOD UREA NITROGEN 14 MG/DL (7-18); CALCIUM LEVEL 7.9 MG/DL (8.8-10.2); CARBON DIOXIDE LEVEL 26 MEQ/L (21-32); CHLORIDE LEVEL 106 MEQ/L (98-107); CREATININE FOR GFR 0.59 MG/DL (0.55-1.30); GLOMERULAR FILTRATION RATE > 60.0 (>39); GLUCOSE, FASTING 90 MG/DL (70-100); POTASSIUM SERUM 4.2 MEQ/L (3.5-5.1); SODIUM LEVEL 140 MEQ/L (136-145)
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
[2020-08-12] MEDS: FLUCONAZOLE 100 MG TAB PO SCH (10:53)
[2020-08-12 14:00] VITALS: BP 162/100
--- NOTE | 2020-08-12 14:35 | ECGEPIP ---
[facility] - ED Test Date: 2020-08-11 Pat Name: SAGAR LEDESMA Department: Room: - Gender: Female Shoe Sprayer: TC : 1950 Requested By: Clotilde Rodriguez Order Number: [id number] Reading MD: Clotilde Rodriguez Measurements Intervals [place] Rate: 78 P: 71 SC: 174 QRS: 56 QRSD: 86 T: 11 QT: 299 QTc: 341 Interpretive Statements SINUS RHYTHM WITH FREQUENT VENTRICULAR PREMATURE COMPLEXES NONSPECIFIC T-WAVE ABNORMALITY DELAYED R PROGRESSION ABNORMAL RHYTHM ECG Electronically Signed on 08-12-2020 14:35:17 EST by Clotilde Rodriguez
[2020-08-12 16:18] VITALS: BP 162/63
[2020-08-12 22:00] VITALS: BP 167/81
[2020-08-13] MEDS: NS 0.45% 1,000 ML IV SCH ×2 (05:43→16:22)
[2020-08-13 06:00] VITALS: BP 156/67
[2020-08-13] MEDS: ACETAMINOPHEN 500 MG TAB PO PRN (06:03)
[2020-08-13] MEDS: ALBUTEROL SULFATE 2.5 MG/0.5 ML INH NEB SOLN INH SCH ×4 (08:13→18:01)
[2020-08-13 09:00] VITALS: BP 100/48
[2020-08-13] MEDS: CARVedilol 3.125 MG TAB PO SCH ×2 (09:00→20:36)
[2020-08-13] MEDS: ATORVASTATIN 20 MG TAB PO SCH (09:01)
[2020-08-13] MEDS: FLUCONAZOLE 100 MG TAB PO SCH (09:01)
[2020-08-13] MEDS: APIXABAN 5 MG TAB (ELIQUIS) PO SCH ×2 (09:01→20:32)
[2020-08-13] MEDS: PANTOPRAZOLE 20 MG TAB PO SCH ×2 (09:02→20:32)
[2020-08-13] MEDS: hydrOXYzine 50 MG TAB PO SCH (09:02)
[2020-08-13] MEDS: levETIRAcetam 250MG TABLET (KEPPRA) PO SCH ×2 (09:02→20:32)
[2020-08-13] MEDS: NYSTATIN 100,000 UNITS/GM TOPICAL PWD 15 GM TOP SCH ×3 (09:05→20:33)
[2020-08-13] MEDS: MICONAZOLE TOPICAL 2% CREAM 15GM TOP SCH ×3 (09:05→20:33)
[2020-08-13 09:15] LABS: HEMATOCRIT 31.3 % (36.0-47.0); MEAN CORPUSCULAR HEMOGLOBIN 29.7 pg (27.0-33.0); MEAN CORPUSCULAR HGB CONC 31.9 g/dl (32.0-36.5); MEAN CORPUSCULAR VOLUME 92.9 fl (80.0-96.0); PLATELET COUNT, AUTOMATED 187 10^3/uL (150-450); RED BLOOD COUNT 3.37 10^6/uL (4.00-5.40); WHITE BLOOD COUNT 12.9 10^3/uL (4.0-10.0)
[2020-08-13 09:41] LABS: BLOOD UREA NITROGEN 11 MG/DL (7-18); CALCIUM LEVEL 7.7 MG/DL (8.8-10.2); CARBON DIOXIDE LEVEL 24 MEQ/L (21-32); CHLORIDE LEVEL 103 MEQ/L (98-107); CREATININE FOR GFR 0.58 MG/DL (0.55-1.30); GLOMERULAR FILTRATION RATE > 60.0 (>39); GLUCOSE, FASTING 72 MG/DL (70-100); POTASSIUM SERUM 3.5 MEQ/L (3.5-5.1); SODIUM LEVEL 136 MEQ/L (136-145)
[2020-08-13] MEDS ORDERED: hydrOXYzine 50 MG TAB PO PRN (12:45)
--- NOTE | 2020-08-13 13:00 | IPN ---
PROGRESS NOTE DATE: 08/13/2020 SUBJECTIVE: Dianna is seen on [address]. Blood pressure is low today. I think with forced compliance with her medications, she is starting to have some low blood pressure and heart rate so we are adjusting her medications. No vp digital marketing social media and crm available today so we are really in kind of a holding pattern as far as the rest of her issues. PHYSICAL EXAMINATION: VITAL SIGNS: Blood pressure 100/48, pulse of 57. GENERAL: She is alert. Mental status the same as yesterday. LUNGS: Clear. HEART: Regular rhythm. ABDOMEN: Soft, nontender. NEUROLOGIC: Left hemineglect. Labs are all pending. IMPRESSION/PLAN: 1. Dehydration. Awaiting lab work. It is after 9:00 and the morning labs are not back yet. We will decide on IV fluids then. Probably stop her IV fluids. 2. Hypertension. Her blood pressure is low I think with the forced compliance of her medications so I will be reducing the dose of her medications with hold parameters. 3. History of recurrent urinary tract infections. She had so much vulvar swelling that we could not get a catheter in to get a urine sample. Still hoping to get this done. 4. Hygienic neglect. PFS will need to get involved on Friday. If she does go home, Adult Protective needs to be involved. 5. History of Takotsubo cardiomyopathy. Repeat echocardiogram pending. 6. History of stroke. Continue her anticonvulsant and anticoagulant.
[2020-08-13 14:00] VITALS: BP 130/60
[2020-08-13 20:36] VITALS: BP 131/61
[2020-08-14] MEDS: NS 0.45% 1,000 ML IV SCH (03:44)
[2020-08-14 05:57] LABS: HEMATOCRIT 32.2 % (36.0-47.0); HEMOGLOBIN 10.5 g/dl (12.0-15.5); MEAN CORPUSCULAR HEMOGLOBIN 30.3 pg (27.0-33.0); MEAN CORPUSCULAR HGB CONC 32.6 g/dl (32.0-36.5); MEAN CORPUSCULAR VOLUME 93.1 fl (80.0-96.0); PLATELET COUNT, AUTOMATED 223 10^3/uL (150-450); RED BLOOD COUNT 3.46 10^6/uL (4.00-5.40); WHITE BLOOD COUNT 13.3 10^3/uL (4.0-10.0)
[2020-08-14 06:00] VITALS: BP 143/88
[2020-08-14] MEDS: ALBUTEROL SULFATE 2.5 MG/0.5 ML INH NEB SOLN INH SCH ×4 (06:19→20:00)
[2020-08-14 06:25] LABS: BLOOD UREA NITROGEN 9 MG/DL (7-18); CALCIUM LEVEL 7.9 MG/DL (8.8-10.2); CARBON DIOXIDE LEVEL 23 MEQ/L (21-32); CHLORIDE LEVEL 105 MEQ/L (98-107); CREATININE FOR GFR 0.52 MG/DL (0.55-1.30); GLOMERULAR FILTRATION RATE > 60.0 (>39); GLUCOSE, FASTING 64 MG/DL (70-100); POTASSIUM SERUM 3.3 MEQ/L (3.5-5.1); SODIUM LEVEL 136 MEQ/L (136-145)
[2020-08-14] MEDS: ATORVASTATIN 20 MG TAB PO SCH (08:25)
[2020-08-14] MEDS: POTASSIUM CHLORIDE 10 MEQ SR TABLET PO SCH ×2 (08:25→20:52)
[2020-08-14] MEDS: levETIRAcetam 250MG TABLET (KEPPRA) PO SCH ×2 (08:26→20:51)
[2020-08-14] MEDS: APIXABAN 5 MG TAB (ELIQUIS) PO SCH ×3 (08:26→21:00)
[2020-08-14] MEDS: ACETAMINOPHEN 500 MG TAB PO PRN (08:26)
[2020-08-14] MEDS: CARVedilol 3.125 MG TAB PO SCH ×3 (08:27→21:00)
[2020-08-14] MEDS: PANTOPRAZOLE 20 MG TAB PO SCH ×3 (08:27→21:00)
[2020-08-14] MEDS: FLUCONAZOLE 100 MG TAB PO SCH (08:27)
[2020-08-14] MEDS: MICONAZOLE TOPICAL 2% CREAM 15GM TOP SCH ×3 (08:29→20:52)
[2020-08-14] MEDS: NYSTATIN 100,000 UNITS/GM TOPICAL PWD 15 GM TOP SCH ×3 (08:29→20:52)
--- NOTE | 2020-08-14 10:13 | IPN ---
PROGRESS NOTE DATE: 08/14/2020 Dianna is about the same as yesterday. We did get a catheter in her, urine looks clear, no immediate sign of urinary tract infection (UTI). She is seen to be stabilizing medically, no new complaints. PHYSICAL EXAMINATION: Blood pressure 143/88, pulse of 67. General appearance: Alert, speech is dysarthric, she has left hemineglect as before. HEENT: Unremarkable. Lungs: Decreased breath sounds. Heart: Regular rate and rhythm. Abdomen: Soft, nontender, no masses. Left hemiplegia. IMPRESSION: 1. Dehydration. This is resolved. I stopped her IV fluids. 2. History of recurrent urinary tract infections. Rasmussen catheter is in for hygiene. Urine culture is pending. 3. History of stroke. Continue anticoagulant, antiplatelet medications. 4. Hypertensive heart disease. Blood pressure is under better control. 5. History of Takotsubo cardiomyopathy. Echocardiogram is pending. She was discussed on case rounds today and will need placement.
[2020-08-14 14:00] VITALS: BP 133/59
[2020-08-14 22:00] VITALS: BP 154/74
[2020-08-15 06:00] VITALS: BP 161/75
--- NOTE | 2020-08-15 07:25 | ECHO ---
DATE OF PROCEDURE: 08/14/2020 Age: 70 Gender: Female Height: 163 cm Weight: 67 kg REFERRING PHYSICIAN: Hilario Castro MD INDICATION: Heart failure, unspecified. MEASUREMENTS: 2D Measurements: Intraventricular septum 0.83 cm Posterior wall 0.80 cm Left ventricle diastole 4.1 cm Aortic root 2.3 cm Left atrium 2.9 cm Inferior vena cava 1.5 cm Doppler Measurements: Very mild aortic regurgitation No aortic stenosis Aortic valve velocity 133 cm/s LVOT velocity 93.3 cm/s LVOT VTI 18.2 cm No mitral stenosis No mitral regurgitation Mitral E velocity 77.9 cm/s Mitral A velocity 113 cm/s Mitral deceleration time 275 msec Very mild tricuspid regurgitation Estimated right ventricular systolic pressure 46-51 mmHg Estimated right atrial pressure 5-10 mmHg No pulmonic regurgitation Pulmonary artery acceleration time 92 msec MITRAL ANNULAR TISSUE DOPPLER: Technically difficult. DESCRIPTION: Rhythm was sinus with frequent PVCs. This was a moderately technically difficult echocardiogram. This was a 2D, M-mode, color flow Doppler, and pulsed wave Doppler examination including mitral annular tissue Doppler. CONCLUSIONS: 1. Normal left ventricle internal dimensions and wall thickness. Normal regional LV wall motion and wall thickening. Normal LV systolic function. LVEF 65% by visual estimate. Grade 1 LV diastolic dysfunction (impaired relaxation filling pattern). Normal left atrial size. 2. Suggestive of moderate elevation of estimated right ventricle systolic pressure (46-51 mmHg). Very mild tricuspid regurgitation. Normal right ventricle size and systolic function. Normal right atrial size. 3. Very small pericardial effusion seen over the right ventricle free wall. No diastolic chamber collapse. 4. Moderately technically difficult echocardiogram. MTDD
[2020-08-15] MEDS: ATORVASTATIN 20 MG TAB PO SCH (08:25)
[2020-08-15] MEDS: ACETAMINOPHEN 500 MG TAB PO PRN ×2 (08:26→21:29)
[2020-08-15] MEDS: POTASSIUM CHLORIDE 10 MEQ SR TABLET PO SCH ×2 (08:26→21:29)
[2020-08-15] MEDS: levETIRAcetam 250MG TABLET (KEPPRA) PO SCH ×2 (08:26→21:28)
[2020-08-15] MEDS: CARVedilol 3.125 MG TAB PO SCH ×2 (08:27→21:29)
[2020-08-15] MEDS: APIXABAN 5 MG TAB (ELIQUIS) PO SCH ×2 (08:27→21:28)
[2020-08-15] MEDS: PANTOPRAZOLE 20 MG TAB PO SCH ×2 (08:27→21:28)
[2020-08-15] MEDS: FLUCONAZOLE 100 MG TAB PO SCH (08:27)
[2020-08-15] MEDS: NYSTATIN 100,000 UNITS/GM TOPICAL PWD 15 GM TOP SCH ×3 (08:28→21:30)
[2020-08-15] MEDS: MICONAZOLE TOPICAL 2% CREAM 15GM TOP SCH ×3 (08:28→21:30)
[2020-08-15] MEDS: ALBUTEROL SULFATE 2.5 MG/0.5 ML INH NEB SOLN INH SCH ×4 (08:41→19:40)
--- NOTE | 2020-08-15 09:35 | IPN ---
PROGRESS NOTE DATE: 08/15/2020 SUBJECTIVE: Dianna is being seen by speech therapy when I was evaluating her. She has some pain in her neck and back, which is chronic. Her p.o. intake is poor and staff notes that she lacks the motivation to eat or participate with her care. OBJECTIVE: VITAL SIGNS: Afebrile, blood pressure 61/75. GENERAL APPEARANCE: Left hemiparesis. LUNGS: Clear. HEART: Regular rhythm. ABDOMEN: Soft and nontender. LABORATORY DATA: She declined having labs drawn today. She was hypokalemic yesterday and really need her to get her labs done. PLAN: We are waiting on speech therapy to complete their report. She needs placement. If her electrolytes are acceptable and her potassium is not a probably, she could be SNF level of care.
[2020-08-15 12:53] LABS: HEMATOCRIT 33.9 % (36.0-47.0); HEMOGLOBIN 10.6 g/dl (12.0-15.5); MEAN CORPUSCULAR HEMOGLOBIN 29.4 pg (27.0-33.0); MEAN CORPUSCULAR HGB CONC 31.3 g/dl (32.0-36.5); MEAN CORPUSCULAR VOLUME 93.9 fl (80.0-96.0); PLATELET COUNT, AUTOMATED 221 10^3/uL (150-450); RED BLOOD COUNT 3.61 10^6/uL (4.00-5.40); WHITE BLOOD COUNT 14.5 10^3/uL (4.0-10.0)
[2020-08-15 13:24] LABS: BLOOD UREA NITROGEN 7 MG/DL (7-18); CALCIUM LEVEL 8.9 MG/DL (8.8-10.2); CARBON DIOXIDE LEVEL 23 MEQ/L (21-32); CHLORIDE LEVEL 104 MEQ/L (98-107); CREATININE FOR GFR 0.54 MG/DL (0.55-1.30); GLOMERULAR FILTRATION RATE > 60.0 (>39); GLUCOSE, FASTING 77 MG/DL (70-100); POTASSIUM SERUM 4.4 MEQ/L (3.5-5.1); SODIUM LEVEL 137 MEQ/L (136-145)
[2020-08-15 22:00] VITALS: BP 144/58
[2020-08-16 06:00] VITALS: BP 191/88
[2020-08-16] MEDS: ALBUTEROL SULFATE 2.5 MG/0.5 ML INH NEB SOLN INH SCH ×4 (07:45→19:41)
[2020-08-16] MEDS: lisinopriL 5 MG TAB PO SCH (09:00)
[2020-08-16] MEDS: ATORVASTATIN 20 MG TAB PO SCH (09:50)
[2020-08-16] MEDS: POTASSIUM CHLORIDE 10 MEQ SR TABLET PO SCH ×2 (09:51→20:46)
[2020-08-16] MEDS: PANTOPRAZOLE 20 MG TAB PO SCH ×2 (09:52→20:47)
[2020-08-16] MEDS: CARVedilol 3.125 MG TAB PO SCH ×2 (09:52→20:47)
[2020-08-16] MEDS: NYSTATIN 100,000 UNITS/GM TOPICAL PWD 15 GM TOP SCH ×3 (09:52→20:48)
[2020-08-16] MEDS: APIXABAN 5 MG TAB (ELIQUIS) PO SCH ×2 (09:52→20:47)
[2020-08-16] MEDS: MICONAZOLE TOPICAL 2% CREAM 15GM TOP SCH ×3 (09:52→20:48)
[2020-08-16] MEDS: levETIRAcetam 250MG TABLET (KEPPRA) PO SCH ×2 (09:52→20:47)
--- NOTE | 2020-08-16 11:06 | IPN ---
PROGRESS NOTE DATE: 08/16/2020 Dianna is stable for SNF level of care today. Her diet has been evaluated by speech therapy and adjusted. Her blood pressure is mildly elevated today, so we are adding low dose lisinopril 5 mg daily to her regimen. PFS is pursuing placement options.
[2020-08-16] MEDS: ACETAMINOPHEN 500 MG TAB PO PRN (20:48)
[2020-08-17 06:00] VITALS: BP 173/75
[2020-08-17 07:10] LABS: HEMATOCRIT 40.2 % (36.0-47.0); HEMOGLOBIN 11.9 g/dl (12.0-15.5); MEAN CORPUSCULAR HEMOGLOBIN 29.4 pg (27.0-33.0); MEAN CORPUSCULAR HGB CONC 29.6 g/dl (32.0-36.5); MEAN CORPUSCULAR VOLUME 99.3 fl (80.0-96.0); PLATELET COUNT, AUTOMATED 197 10^3/uL (150-450); RED BLOOD COUNT 4.05 10^6/uL (4.00-5.40); WHITE BLOOD COUNT 11.2 10^3/uL (4.0-10.0)
[2020-08-17 07:40] LABS: BLOOD UREA NITROGEN 6 MG/DL (7-18); CARBON DIOXIDE LEVEL 28 MEQ/L (21-32); CHLORIDE LEVEL 104 MEQ/L (98-107); CREATININE FOR GFR 0.66 MG/DL (0.55-1.30); GLOMERULAR FILTRATION RATE > 60.0 (>39); GLUCOSE, FASTING 81 MG/DL (70-100); POTASSIUM SERUM 5.4 MEQ/L (3.5-5.1); SODIUM LEVEL 137 MEQ/L (136-145)
[2020-08-17] MEDS: ALBUTEROL SULFATE 2.5 MG/0.5 ML INH NEB SOLN INH SCH ×4 (08:00→20:42)
[2020-08-17] MEDS: POTASSIUM CHLORIDE 10 MEQ SR TABLET PO SCH ×2 (09:00→21:00)
[2020-08-17] MEDS: NYSTATIN 100,000 UNITS/GM TOPICAL PWD 15 GM TOP SCH ×3 (09:00→21:32)
[2020-08-17] MEDS: ATORVASTATIN 20 MG TAB PO SCH (10:03)
[2020-08-17] MEDS: levETIRAcetam 250MG TABLET (KEPPRA) PO SCH ×2 (10:03→21:30)
[2020-08-17] MEDS: ACETAMINOPHEN 500 MG TAB PO PRN ×2 (10:03→17:00)
[2020-08-17] MEDS: APIXABAN 5 MG TAB (ELIQUIS) PO SCH ×2 (10:03→21:30)
[2020-08-17] MEDS: lisinopriL 5 MG TAB PO SCH (10:04)
[2020-08-17] MEDS: CARVedilol 3.125 MG TAB PO SCH ×2 (10:05→21:30)
[2020-08-17] MEDS: PANTOPRAZOLE 20 MG TAB PO SCH ×2 (10:06→21:31)
[2020-08-17] MEDS: MICONAZOLE TOPICAL 2% CREAM 15GM TOP SCH ×3 (10:06→21:31)
[2020-08-18] MEDS: ALBUTEROL SULFATE 2.5 MG/0.5 ML INH NEB SOLN INH SCH ×4 (07:33→19:59)
[2020-08-18] MEDS: ACETAMINOPHEN 500 MG TAB PO PRN (07:43)
[2020-08-18] MEDS: levETIRAcetam 250MG TABLET (KEPPRA) PO SCH ×2 (07:43→21:00)
[2020-08-18] MEDS: lisinopriL 5 MG TAB PO SCH (07:44)
[2020-08-18] MEDS: ATORVASTATIN 20 MG TAB PO SCH (07:44)
[2020-08-18] MEDS: APIXABAN 5 MG TAB (ELIQUIS) PO SCH ×2 (07:44→21:00)
[2020-08-18] MEDS: CARVedilol 3.125 MG TAB PO SCH ×2 (07:44→21:00)
[2020-08-18] MEDS: PANTOPRAZOLE 20 MG TAB PO SCH ×2 (07:45→21:00)
[2020-08-18] MEDS: MICONAZOLE TOPICAL 2% CREAM 15GM TOP SCH ×4 (07:45→22:09)
[2020-08-18] MEDS: NYSTATIN 100,000 UNITS/GM TOPICAL PWD 15 GM TOP SCH ×3 (07:45→22:09)
[2020-08-18] MEDS: POTASSIUM CHLORIDE 10 MEQ SR TABLET PO SCH (07:46)
--- NOTE | 2020-08-18 20:51 | IPNPDOC ---
Date Seen The patient was seen on 08/18/20. Progress Note SUBJECTIVE: Confused, without complaints, awaiting placement. PHYSICAL EXAMINATION: VITAL SIGNS: Please see below. GENERAL: No distress HEENT: Dry mucous membranes NECK: Supple CARDIOVASCULAR EXAMINATION: S1, S2, no murmurs RESPIRATORY EXAMINATION: Basilar rhonchi, no wheezing ABDOMINAL EXAMINATION: Soft, nontender, nondistended, positive bowel sounds SKIN: No rash LABORATORY DATA, IMAGING STUDIES, MICROBIOLOGY: Please see below. ASSESSMENT AND PLAN: 70-year-old female with history of CVA who is normally cared for by her is now admitted for placement. PROBLEMS: 1. . Physical deconditioning: History of CVA causing significant disability requiring halfway facility placement. PFS arranging adequate placement. Patient is stable, at baseline. 2. Hypertension: On lisinopril and Coreg 3. History of Takotsubo Cardiomyopathy On Eliquis in the outpatient setting, unclear why, will continue. DVT prophylaxis: Eliquis VS, I&O, 24H, Fishbone Vital Signs/I&O Vital Signs Date Time Temp Pulse Resp B/P (MAP) Pulse Ox O2 Delivery O2 Flow Rate FiO2 08/18/20 07:44 162/88 08/18/20 07:44 66 08/17/20 06:00 97.1 18 96 Room Air I&O- Last 24 Hours up to 6 AM 08/18/20 06:00 Intake Total 0 ml Output Total 0 ml Balance 0 ml Laboratory Data Microbiology Microbiology 08/13/20 Urine Culture - Final, Complete Klebsiella Pneumoniae ROSEMARY ALTAMIRANO MD Aug 18, 2020 20:51
[2020-08-19 06:00] VITALS: BP 139/63
[2020-08-19] MEDS: ALBUTEROL SULFATE 2.5 MG/0.5 ML INH NEB SOLN INH SCH ×4 (07:34→20:00)
[2020-08-19] MEDS: CARVedilol 3.125 MG TAB PO SCH ×2 (09:00→21:00)
[2020-08-19] MEDS: PANTOPRAZOLE 20 MG TAB PO SCH ×2 (09:00→21:00)
[2020-08-19] MEDS: NYSTATIN 100,000 UNITS/GM TOPICAL PWD 15 GM TOP SCH ×3 (09:00→20:22)
[2020-08-19] MEDS: ATORVASTATIN 20 MG TAB PO SCH (09:00)
[2020-08-19] MEDS: levETIRAcetam 250MG TABLET (KEPPRA) PO SCH ×2 (09:00→21:00)
[2020-08-19] MEDS: APIXABAN 5 MG TAB (ELIQUIS) PO SCH ×2 (09:00→21:00)
[2020-08-19] MEDS: lisinopriL 5 MG TAB PO SCH (09:00)
[2020-08-19] MEDS: MICONAZOLE TOPICAL 2% CREAM 15GM TOP SCH ×3 (09:00→20:22)
[2020-08-19 19:44] VITALS: BP 106/66
[2020-08-19] MEDS: D5W/0.45% SODIUM CHLORIDE 1,000 ML IV SCH (21:54)
[2020-08-20 06:00] VITALS: BP 124/87
[2020-08-20] MEDS: ALBUTEROL SULFATE 2.5 MG/0.5 ML INH NEB SOLN INH SCH ×4 (07:27→20:00)
[2020-08-20] MEDS: PANTOPRAZOLE 20 MG TAB PO SCH ×2 (09:00→21:00)
[2020-08-20] MEDS: lisinopriL 5 MG TAB PO SCH (09:00)
[2020-08-20] MEDS: ATORVASTATIN 20 MG TAB PO SCH (09:00)
[2020-08-20] MEDS: levETIRAcetam 250MG TABLET (KEPPRA) PO SCH ×2 (09:00→21:07)
[2020-08-20] MEDS: MICONAZOLE TOPICAL 2% CREAM 15GM TOP SCH ×3 (09:00→21:08)
[2020-08-20] MEDS: CARVedilol 3.125 MG TAB PO SCH ×2 (09:00→21:00)
[2020-08-20] MEDS: NYSTATIN 100,000 UNITS/GM TOPICAL PWD 15 GM TOP SCH ×3 (09:00→21:08)
[2020-08-20] MEDS: APIXABAN 5 MG TAB (ELIQUIS) PO SCH ×2 (09:09→21:07)
[2020-08-20] MEDS: D5W/0.45% SODIUM CHLORIDE 1,000 ML IV SCH ×2 (09:15→19:44)
[2020-08-20 11:48] LABS: HEMOGLOBIN 10.6 g/dl (12.0-15.5); MEAN CORPUSCULAR HEMOGLOBIN 29.9 pg (27.0-33.0); MEAN CORPUSCULAR HGB CONC 33.1 g/dl (32.0-36.5); MEAN CORPUSCULAR VOLUME 90.4 fl (80.0-96.0); PLATELET COUNT, AUTOMATED 222 10^3/uL (150-450); RED BLOOD COUNT 3.54 10^6/uL (4.00-5.40); WHITE BLOOD COUNT 10.3 10^3/uL (4.0-10.0)
[2020-08-20 12:22] LABS: BLOOD UREA NITROGEN 9 MG/DL (7-18); CALCIUM LEVEL 8.4 MG/DL (8.8-10.2); CARBON DIOXIDE LEVEL 30 MEQ/L (21-32); CHLORIDE LEVEL 100 MEQ/L (98-107); CREATININE FOR GFR 0.76 MG/DL (0.55-1.30); GLOMERULAR FILTRATION RATE > 60.0 (>39); GLUCOSE, FASTING 108 MG/DL (70-100); POTASSIUM SERUM 3.7 MEQ/L (3.5-5.1); SODIUM LEVEL 135 MEQ/L (136-145)
--- NOTE | 2020-08-20 14:00 | IPNPDOC ---
Date Seen The patient was seen on 08/20/20. Progress Note SUBJECTIVE: Confused, without complaints, awaiting placement. Comfortable at this time, by mouth intake is minimal, and refusing medications. PHYSICAL EXAMINATION: VITAL SIGNS: Please see below. GENERAL: No distress HEENT: Dry mucous membranes NECK: Supple CARDIOVASCULAR EXAMINATION: S1, S2, no murmurs RESPIRATORY EXAMINATION: Basilar rhonchi, no wheezing ABDOMINAL EXAMINATION: Soft, nontender, nondistended, positive bowel sounds SKIN: No rash LABORATORY DATA, IMAGING STUDIES, MICROBIOLOGY: Please see below. ASSESSMENT AND PLAN: 70-year-old female with history of CVA who is normally car ed for by her is now admitted for placement. PROBLEMS: 1. . Physical deconditioning: History of CVA causing significant disability requiring retirement facility placement. Failure to thrive with minimal by mouth intake and refusing most of her medications. Maintenance fluids until by mouth intake improves. If there is no improvement in 24-48 hours, then we will discuss PEG tube placement and other options with her . PFS arranging adequate placement. 2. Hypertension: On lisinopril and Coreg 3. History of Takotsubo Cardiomyopathy On Eliquis in the outpatient setting, unclear why, will continue. DVT prophylaxis: Eliquis VS, I&O, 24H, Fishbone Vital Signs/I&O Vital Signs Date Time Temp Pulse Resp B/P (MAP) Pulse Ox O2 Delivery O2 Flow Rate FiO2 08/20/20 06:00 99.3 77 18 124/87 (99) 94 Room Air I&O- Last 24 Hours up to 6 AM 08/20/20 06:00 Intake Total 645 ml Output Total 200 ml Balance 445 ml Laboratory Data 24H LABS Laboratory Tests 2 08/20/20 11:34: Nucleated Red Blood Cells % (auto) 0.0, Anion Gap 5L, Glomerular Filtration Rate > 60.0, Calcium Level 8.4L CBC/BMP Laboratory Tests 08/20/20 11:34 Microbiology Microbiology 08/13/20 Urine Culture - Final, Complete Klebsiella Pneumoniae ROSEMARY ALTAMIRANO MD Aug 20, 2020 14:00
[2020-08-20] MEDS: ACETAMINOPHEN 500 MG TAB PO PRN (21:07)
[2020-08-21] MEDS: D5W/0.45% SODIUM CHLORIDE 1,000 ML IV SCH ×2 (03:42→20:26)
[2020-08-21 06:00] VITALS: BP 124/68
[2020-08-21] MEDS: ALBUTEROL SULFATE 2.5 MG/0.5 ML INH NEB SOLN INH SCH ×4 (07:13→19:44)
[2020-08-21] MEDS: PANTOPRAZOLE 20 MG TAB PO SCH ×2 (09:00→20:27)
[2020-08-21] MEDS: MICONAZOLE TOPICAL 2% CREAM 15GM TOP SCH ×3 (09:00→20:27)
[2020-08-21] MEDS: NYSTATIN 100,000 UNITS/GM TOPICAL PWD 15 GM TOP SCH ×3 (09:00→20:27)
[2020-08-21] MEDS: levETIRAcetam 250MG TABLET (KEPPRA) PO SCH ×2 (09:00→20:27)
[2020-08-21] MEDS: ATORVASTATIN 20 MG TAB PO SCH (09:00)
[2020-08-21] MEDS: CARVedilol 3.125 MG TAB PO SCH ×2 (09:00→20:26)
[2020-08-21] MEDS: APIXABAN 5 MG TAB (ELIQUIS) PO SCH ×2 (09:00→20:26)
[2020-08-21] MEDS: lisinopriL 5 MG TAB PO SCH (09:00)
[2020-08-21] MEDS: ACETAMINOPHEN 500 MG TAB PO PRN (20:26)
[2020-08-22 06:00] VITALS: BP 124/68
[2020-08-22] MEDS: ALBUTEROL SULFATE 2.5 MG/0.5 ML INH NEB SOLN INH SCH ×4 (07:29→20:25)
[2020-08-22] MEDS: CARVedilol 3.125 MG TAB PO SCH ×2 (09:00→21:00)
[2020-08-22] MEDS: APIXABAN 5 MG TAB (ELIQUIS) PO SCH ×2 (09:00→21:00)
[2020-08-22] MEDS: levETIRAcetam 250MG TABLET (KEPPRA) PO SCH ×2 (09:00→21:00)
[2020-08-22] MEDS: PANTOPRAZOLE 20 MG TAB PO SCH ×2 (09:00→21:00)
[2020-08-22] MEDS: NYSTATIN 100,000 UNITS/GM TOPICAL PWD 15 GM TOP SCH ×3 (09:00→21:33)
[2020-08-22] MEDS: lisinopriL 5 MG TAB PO SCH (09:00)
[2020-08-22] MEDS: ATORVASTATIN 20 MG TAB PO SCH (09:00)
[2020-08-22] MEDS: MICONAZOLE TOPICAL 2% CREAM 15GM TOP SCH ×3 (09:00→21:33)
[2020-08-23 06:00] VITALS: BP 161/87
[2020-08-23] MEDS: ALBUTEROL SULFATE 2.5 MG/0.5 ML INH NEB SOLN INH SCH ×4 (07:45→19:51)
[2020-08-23 08:57] LABS: BASO # 0.1 10^3/uL (0.0-0.2); BASO % 0.5 % (0.0-1.0); EOS # 0.1 10^3/uL (0.0-0.5); EOS % 1.1 % (0.0-3.0); HEMATOCRIT 35.3 % (36.0-47.0); HEMOGLOBIN 11.2 g/dl (12.0-15.5); LYMPH # 1.9 10^3/uL (1.5-5.0); LYMPH % 17.4 % (24.0-44.0); MEAN CORPUSCULAR HEMOGLOBIN 28.6 pg (27.0-33.0); MEAN CORPUSCULAR HGB CONC 31.7 g/dl (32.0-36.5); MEAN CORPUSCULAR VOLUME 90.3 fl (80.0-96.0); MONO # 1.2 10^3/uL (0.0-0.8); MONO % 10.4 % (0.0-5.0); NEUTROPHILS # 7.7 10^3/uL (1.5-8.5); NEUTROPHILS % 69.3 % (36.0-66.0); PLATELET COUNT, AUTOMATED 246 10^3/uL (150-450); RED BLOOD COUNT 3.91 10^6/uL (4.00-5.40); WHITE BLOOD COUNT 11.1 10^3/uL (4.0-10.0)
[2020-08-23] MEDS: PANTOPRAZOLE 20 MG TAB PO SCH ×3 (09:00→21:46)
[2020-08-23] MEDS: ATORVASTATIN 20 MG TAB PO SCH (09:10)
[2020-08-23] MEDS: levETIRAcetam 250MG TABLET (KEPPRA) PO SCH ×2 (09:10→21:47)
[2020-08-23] MEDS: CARVedilol 3.125 MG TAB PO SCH ×2 (09:11→21:48)
[2020-08-23] MEDS: APIXABAN 5 MG TAB (ELIQUIS) PO SCH ×2 (09:11→21:47)
[2020-08-23] MEDS: lisinopriL 5 MG TAB PO SCH (09:11)
[2020-08-23] MEDS: ACETAMINOPHEN 500 MG TAB PO PRN ×2 (09:11→21:46)
[2020-08-23] MEDS: MICONAZOLE TOPICAL 2% CREAM 15GM TOP SCH ×3 (09:12→21:47)
[2020-08-23] MEDS: NYSTATIN 100,000 UNITS/GM TOPICAL PWD 15 GM TOP SCH ×3 (09:12→21:48)
[2020-08-23 09:28] LABS: BLOOD UREA NITROGEN 6 MG/DL (7-18); CALCIUM LEVEL 8.7 MG/DL (8.8-10.2); CARBON DIOXIDE LEVEL 32 MEQ/L (21-32); CHLORIDE LEVEL 100 MEQ/L (98-107); CREATININE FOR GFR 0.56 MG/DL (0.55-1.30); GLOMERULAR FILTRATION RATE > 60.0 (>39); GLUCOSE, FASTING 98 MG/DL (70-100); POTASSIUM SERUM 3.2 MEQ/L (3.5-5.1); SODIUM LEVEL 139 MEQ/L (136-145)
[2020-08-23] MEDS: POTASSIUM CHLORIDE 10 MEQ SR TABLET PO ONE ×2 (12:06→12:10)
[2020-08-23 21:48] VITALS: BP 147/65
[2020-08-24 06:00] VITALS: BP 143/61
[2020-08-24 06:31] LABS: BASO # 0.1 10^3/uL (0.0-0.2); BASO % 0.9 % (0.0-1.0); EOS # 0.2 10^3/uL (0.0-0.5); EOS % 1.6 % (0.0-3.0); HEMATOCRIT 34.1 % (36.0-47.0); HEMOGLOBIN 10.7 g/dl (12.0-15.5); LYMPH # 2.3 10^3/uL (1.5-5.0); LYMPH % 24.6 % (24.0-44.0); MEAN CORPUSCULAR HEMOGLOBIN 29.1 pg (27.0-33.0); MEAN CORPUSCULAR HGB CONC 31.4 g/dl (32.0-36.5); MEAN CORPUSCULAR VOLUME 92.7 fl (80.0-96.0); MONO # 1.1 10^3/uL (0.0-0.8); MONO % 11.3 % (0.0-5.0); NEUTROPHILS # 5.6 10^3/uL (1.5-8.5); NEUTROPHILS % 60.8 % (36.0-66.0); PLATELET COUNT, AUTOMATED 243 10^3/uL (150-450); RED BLOOD COUNT 3.68 10^6/uL (4.00-5.40); WHITE BLOOD COUNT 9.3 10^3/uL (4.0-10.0)
[2020-08-24 06:39] LABS: BLOOD UREA NITROGEN 11 MG/DL (7-18); CALCIUM LEVEL 8.6 MG/DL (8.8-10.2); CARBON DIOXIDE LEVEL 32 MEQ/L (21-32); CHLORIDE LEVEL 101 MEQ/L (98-107); CREATININE FOR GFR 0.72 MG/DL (0.55-1.30); GLOMERULAR FILTRATION RATE > 60.0 (>39); GLUCOSE, FASTING 89 MG/DL (70-100); POTASSIUM SERUM 3.1 MEQ/L (3.5-5.1); SODIUM LEVEL 138 MEQ/L (136-145)
[2020-08-24] MEDS ORDERED: POTASSIUM CHLORIDE 10% LIQ 20 MEQ/15 ML UDC PO ONE (07:30)
[2020-08-24] MEDS: ALBUTEROL SULFATE 2.5 MG/0.5 ML INH NEB SOLN INH SCH ×4 (07:32→21:07)
[2020-08-24] MEDS: ATORVASTATIN 20 MG TAB PO SCH (08:38)
[2020-08-24] MEDS: levETIRAcetam 250MG TABLET (KEPPRA) PO SCH ×2 (08:38→22:12)
[2020-08-24] MEDS: APIXABAN 5 MG TAB (ELIQUIS) PO SCH (08:38)
[2020-08-24] MEDS: CARVedilol 3.125 MG TAB PO SCH (08:38)
[2020-08-24] MEDS: MICONAZOLE TOPICAL 2% CREAM 15GM TOP SCH ×3 (08:39→22:12)
[2020-08-24] MEDS: lisinopriL 5 MG TAB PO SCH (08:39)
[2020-08-24] MEDS: NYSTATIN 100,000 UNITS/GM TOPICAL PWD 15 GM TOP SCH ×3 (08:39→22:13)
[2020-08-24] MEDS: PANTOPRAZOLE 20 MG TAB PO SCH ×2 (08:39→22:12)
[2020-08-24] MEDS ORDERED: LORazepam 1 MG TAB PO PRN (18:00)
[2020-08-24] MEDS ORDERED: HYOSCYAMINE SULFATE 0.125 MG SUBL TABLET PO PRN (18:00)
[2020-08-24] MEDS ORDERED: MORPHINE 10MG/0.5ML ORAL CONCENTRATE SOLUTION U/D SL PRN (18:00)
[2020-08-24] MEDS ORDERED: ONDANSETRON 4 MG ORAL DISINTEGRATING TAB PO PRN (18:00)
[2020-08-24] MEDS: ACETAMINOPHEN 500 MG TAB PO PRN (22:12)
[2020-08-25] MEDS: ALBUTEROL SULFATE 2.5 MG/0.5 ML INH NEB SOLN INH SCH ×2 (07:23→11:53)
[2020-08-25] MEDS: PANTOPRAZOLE 20 MG TAB PO SCH (08:02)
[2020-08-25] MEDS: levETIRAcetam 250MG TABLET (KEPPRA) PO SCH (08:02)
[2020-08-25] MEDS: NYSTATIN 100,000 UNITS/GM TOPICAL PWD 15 GM TOP SCH (08:39)
[2020-08-25] MEDS: MICONAZOLE TOPICAL 2% CREAM 15GM TOP SCH (08:39)
[2020-08-25] MEDS ORDERED: HYOS125TA PO ×2 (09:51→11:28)
[2020-08-25] MEDS ORDERED: ATIV1TAB10 PO ×2 (09:51→11:27)
[2020-08-25] MEDS ORDERED: MORP20SO3 PO ×2 (09:51→11:27)
--- NOTE | 2020-08-25 21:29 | DS.PDOC ---
Discharge Summary General Date of Admission Aug 11, 2020 at 14:48 Date of Discharge 08/25/20 Discharge Summary PROCEDURES PERFORMED DURING STAY: [None]. 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 H/O Takasubo cardiomyopathy Hypertension with hypertensive heart disease Carotid artery disease H/o Heavy Smoking and medication Noncompliance Seizure disorder History of Breast cancer Anxiety COMPLICATIONS/CHIEF COMPLAINT: Dehydration. HOSPITAL COURSE: VITAL SIGNS: 70-year-old female with history of CVA with hemiparesis, multiinfarct dementia, failure to thrive, who is normally cared for by her but was unable to take care of her at home any more. She was having decreasing oral intake and decreasing strength ultimately was mostly bed bound so was admitted for placement . In the hospital initially she was treated for dehydration adn UTI with IVF and appropriate antibiotics. There was no improvemnt in the patient's condition. Patient however continued to refuse oral food and medications. As per Patient's previous [facility] from 2018 she had indicated that she did not want a feeding tube. It felt patient's condition will not improve infact she would continue to deteriorate. After discussion with Hospice was consulted. 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 DISCHARGE MEDICATIONS: Please see below. ALLERGIES: Please see below. PHYSICAL EXAMINATION ON DISCHARGE: VITAL SIGNS: Please see below. GENERAL: No distress HEENT: Dry mucous membranes NECK: Supple CARDIOVASCULAR EXAMINATION: S1, S2, no murmurs RESPIRATORY EXAMINATION: Basilar rhonchi, no wheezing ABDOMINAL EXAMINATION: Soft, nontender, nondistended, positive bowel sounds SKIN: No rash LABORATORY DATA: Please see below. ACTIVITY: [As tolerated]. DIET: as tolerated [facility]POSITION: [facility] TIME SPENT ON DISCHARGE: 25 minutes. Vital Signs/I&Os Vital Signs Date Time Temp Pulse Resp B/P (MAP) Pulse Ox O2 Delivery O2 Flow Rate FiO2 08/24/20 06:00 97.8 64 17 143/61 (88) 92 Room Air I&O- Last 24 Hours up to 6 AM 08/25/20 07:00 Intake Total 60 ml Output Total 200 ml Balance -140 ml Microbiology Microbiology 08/24/20 Respiratory Virus Panel (PCR) (AASHISH) - Final, Complete Discharge Medications Scheduled Pantoprazole Sodium (Pantoprazole Sodium) 20 Mg Tablet.dr, 20 MG PO BID, (R eported) levETIRAcetam (levETIRAcetam) 500 Mg Tablet, 500 MG PO BID, (Reported) TAKES AT 0600/1800 Scheduled PRN Acetaminophen (Acetaminophen) 500 Mg Tablet, 1,000 MG PO TID PRN for PAIN, (Reported) Albuterol Sulfate (Ventolin Hfa) 18 Gm Hfa.aer.ad, 2 PUFF INH Q4H PRN for SOB/WHEEZING, (Reported) Glycerin/Propylene Glycol (Artificial Tears Drops) 15 Ml Drops, 2 DROP OU QID PRN for DRY EYES, (Reported) Hyoscyamine Sulfate (Hyoscyamine Sulfate) 0.125 Mg Tab.subl, 0.125 MG PO Q4HP PRN for TERMINAL SECRETIONS Use sublingually if unable to swallow Lorazepam (Ativan) 0.5 Mg Tablet, 0.5 MG PO Q4HP PRN for ANXIETY/AGITATION Use sublingually if unable to swallow Morphine Sulfate (Morphine Sulfate) 100 Mg/5 Ml Solution, 0.25-1 ML PO Q2H PRN for PAIN OR DYSPNEA Use sublingually if unable to swallow Allergies Coded Allergies: TAPE (Verified Allergy, Severe, BLISTERS, 01/18/18) latex (Verified Allergy, Intermediate, RASH BURN, 11/07/19) amlodipine (Verified Adverse Reaction, Unknown, LEG SWELLING, 11/07/19) RAJINDER YADAV MD Aug 25, 2020 21:29
== END 2020-08-25 12:20 | disposition hospice, inpatient (51) | DRG 641 ==
LOC: M ED 10:44 → EDBD 10:44 → M ED INP 14:48 → ENRESERV 15:01 → M MS5PR 17:55
PROVIDERS: ADMIT Family Medicine; ATTEND Internal Medicine Nephrology
DX: E86.0 Dehydration (principal); I51.81 Takotsubo syndrome; I69.354 Hemiplegia and hemiparesis following cerebral infarction affecting left non-dominant side; N39.0 Urinary tract infection, site not specified; I11.9 Hypertensive heart disease without heart failure; F41.9 Anxiety disorder, unspecified; F17.200 Nicotine dependence, unspecified, uncomplicated; R62.7 Adult failure to thrive; R46.0 Very low level of personal hygiene; F01.50 Vascular dementia, unspecified severity, without behavioral disturbance, psychotic disturbance, mood disturbance, and anxiety; Z51.5 Encounter for palliative care; Z66 Do not resuscitate; R63.0 Anorexia; B96.1 Klebsiella pneumoniae [K. pneumoniae] as the cause of diseases classified elsewhere; G40.909 Epilepsy, unspecified, not intractable, without status epilepticus; Z88.8 Allergy status to other drugs, medicaments and biological substances; Z91.040 Latex allergy status; Z91.048 Other nonmedicinal substance allergy status; Z79.02 Long term (current) use of antithrombotics/antiplatelets; Z79.899 Other long term (current) drug therapy; Z74.1 Need for assistance with personal care; Z79.01 Long term (current) use of anticoagulants; Z85.3 Personal history of malignant neoplasm of breast; Z11.52 Encounter for screening for COVID-19